=== PATIENT | female | born 1950 | race Caucasian/White ===

== ENCOUNTER → 2016-04-04 | Outpatient (CLI) | payer BC ==
[~2016-04-04] MED LIST: ALLEGRA PO; ASPEC325 PO; BNC40 PO; CARV3.12 PO; CLB/200 PO; DILT-115 PO; FRS/40 PO; GLC/500 PO; GLUCOSAMINE CHOND PO; GLUCTAB7 PO; KRIL1CAP3 PO; LOSA1TAB38 PO; MAGN400T6 PO; MULT-506 PO; NRN600 PO; PANT1TAB48 PO; POTA1080 PO; PRLSR20 PO; PROM25TA PO; RGL5 PO; ROSU5TAB PO; URC10 PO
[2016-04-04 12:49] LABS: BASO % 0.3 %; BASO ABS # 0.02 K/uL (0-0.2); COMPLETE YES; EOS % 3.9 %; HEMATOCRIT 44.7 % (37-47); IG% 0.3 %; LYMPH % 28.9 %; MEAN CELL VOLUME 91.6 fL (80-100); MEAN CORPUSCULAR HEMOGLOBIN 31.1 pg (25-34); MEAN PLATELET VOLUME 10.8 fL (7.4-10.4); MONO % 5.5 %; NEUT % 61.1 %; PLATELET COUNT 224 K/uL (130-400); RED BLOOD COUNT 4.88 M/uL (4.2-5.4); WHITE BLOOD COUNT 6.23 K/uL (4.8-10.8)
[2016-04-04 12:51] LABS: ESTIMATED AVERAGE GLUCOSE 131 mg/dl; HA1C FLAG Normal (Normal)
[2016-04-04 12:55] LABS: URINE APPEARANCE CLEAR (CLEAR); URINE BILIRUBIN NEG (NEG); URINE COLOR YELLOW; URINE NITRITE NEG (NEG); URINE PH 6.5 (4.5-7.5); UROBILINOGEN NEG (NEG); ZZUR CULT IF INDIC CLEAN CATCH YES
[2016-04-04 12:58] LABS: MANUAL MICROSCOPIC REQUIRED? NO; REVIEW REQ? NO
[2016-04-04 13:01] LABS: BLOOD UREA NITROGEN 21 mg/dl (7-18); BUN/CREATININE RATIO 20.6 (10-20); CALCIUM 9.5 mg/dl (8.5-10.1); CARBON DIOXIDE 27 mmol/L (21-32); CHLORIDE 104 mmol/L (98-107); CHOLESTEROL 180 mg/dl (0-200); GLUCOSE 149 mg/dl (70-99); POTASSIUM 4.4 mmol/L (3.5-5.1); SODIUM 141 mmol/L (136-145)
[2016-04-04 13:13] LABS: ALB/GLOB RATIO 1.2 (0.9-2); ALKALINE PHOSPHATASE 108 U/L (45-117); ALT/SGPT 43 U/L (12-78); AST/SGOT 17 U/L (15-37); CHOLESTEROL/HDL RATIO 3.5; HDL CHOLESTEROL 51 mg/dl; LDL CHOLESTEROL CALCULATED 96 mg/dl; TRIGLYCERIDES 165 mg/dl (0-150); VERY LOW DENSITY LIPOPROT CALC 33 mg/dl
== END | disposition home or self-care (01) ==
LOC: C.LABBFT 10:03
PROVIDERS: ATTEND Internal Medicine
DX: Z11.59 Encounter for screening for other viral diseases (principal); E11.8 Type 2 diabetes mellitus with unspecified complications; M81.0 Age-related osteoporosis without current pathological fracture; E66.01 Morbid (severe) obesity due to excess calories

== ENCOUNTER → 2016-07-12 | Outpatient (CLI) | payer BC ==
--- NOTE | 2016-07-12 15:11 | MAMMOGRAPHY REPORT ---
BILATERAL DIGITAL SCREENING MAMMOGRAM WITH CAD: 07/12/2016 CLINICAL HISTORY: Routine screening. Patient has no complaints. TECHNIQUE: Current study was also evaluated with a Computer Aided Detection (CAD) system. Bilatera l CC and MLO views were obtained. COMPARISON: Comparison is made to exams dated: 07/08/2015 mammogram, 06/25/2014 mammogram, 06/24/2013 ma mmogram, 06/18/2012 mammogram, 06/14/2011 mammogram, and 05/31/2010 mammogram - [facility] enter. BREAST COMPOSITION: The tissue of both breasts is almost entirely fatty. FINDINGS: No suspicious masses, calcifications, or areas of architectural distortion are noted in e ither breast. There has been no significant interval change compared to prior exams. IMPRESSION: ACR BI-RADS CATEGORY 1: NEGATIVE There is no mammographic evidence of malignancy. A 1 year screening mammogram is recommended. The p atient will receive written notification of the results. Approximately 10% of breast cancers are not detected with mammography. A negative mammographic repor t should not delay biopsy if a clinically suggestive mass is present. Alison Hammond M.D. ah/:07/12/2016 15:06:18 Ell Teacher: Camille SHAFFER(Valdemar)(Ruel), [facility] letter sent: Normal 1/2 BI-RADS Code: ACR BI-RADS Category 1: Negative
== END | disposition home or self-care (01) ==
LOC: C.MAMM 14:32
PROVIDERS: ATTEND Obstetrics & Gynecology
DX: Z12.31 Encounter for screening mammogram for malignant neoplasm of breast (principal)

== ENCOUNTER → 2016-11-07 | Day surgery (SDC) | payer BC ==
[2016-11-06 11:25] VITALS: Ht 165.1 cm; Wt 129.6 kg
[~2016-11-07] VITALS: Ht 165.1 cm; Wt 129.6 kg
[~2016-11-07] MED LIST changes: -ALLEGRA PO; -BNC40 PO; -GLUCOSAMINE CHOND PO; +LIDOCAINE HCL 2% 2 ML VIAL (20MG/ML) ONE; -MAGN400T6 PO; -POTA1080 PO; -PRLSR20 PO; -PROM25TA PO; +PROPOFOL IV EMULSION 10 MG/ML 20 ML VIAL IV ONE; -RGL5 PO; +SODIUM CHLORIDE 0.9% 500ML 500 ML IV ONE
--- NOTE | 2016-11-07 11:19 | Endo History and Physical ---
History & Physical Date of Service: Nov 07, 2016. Chief Complaint: Colon screening Referring Physician: Mateo Saini History of Present Illness Screening colonoscopy, average risk Past Surgical History Hx Cardiac Surgery: No Hx Internal Defibrillator: No Hx Pacemaker: No Hx Abdominal Surgery: Yes (SHEMAR) Hx of Implantable Prosthesis: No Hx Post-Op Nausea and Vomiting: No Hx Cancer Surgery: No Hx Thoracic Surgery: No Hx Orthopedic: No Hx Urinary Tract Surgery: Yes (URETER STENTS) Family History None Social History Smoking Status: Never Smoker Hx Substance Use: No Hx Alcohol Use: No Allergies Coded Allergies: Fluconazole (Verified Allergy, Mild, HIVES, 11/06/16) Hydrochlorothiazide (Verified Allergy, Unknown, DYAZIDE-RASH, 11/06/16) Replaces MAXZIDE-25 Nifedipine (Verified Allergy, Unknown, RASH, 11/06/16) Nitrofurantoin (Verified Allergy, Unknown, RASH, 11/06/16) Olmesartan (Verified Allergy, Unknown, GI UPSET, WEIGHT LOSS, 11/06/16) Sulfa Drugs (Verified Allergy, Unknown, RASH, 11/06/16) Triamterene (Verified Allergy, Unknown, DYAZIDE-RASH, 11/06/16) Replaces MAXZIDE-25 Penicillins (Verified Adverse Reaction, Mild, TOLERATES AMOXICILLIN/ AMPICILLIN, 11/06/16) REPORTED CHILDHOOD ALLERGY Vancomycin (Verified Adverse Reaction, Unknown, RASH--WAS TOLD IT WAS INFUSED TOO FAST, 11/06/16) Current Medications Reported Home Medications Medications Dose Route/Sig Max Daily Dose Days Date Category Glucosamine Chondroitin (Bjvfvyxleyg-Jjzbzxlohwy-Pjb C-) 1 Tab Tab 1 Tab PO BID 11/06/16 Reported Krill Oil 1 Cap Cap 1 Cap PO QAM 11/06/16 Reported CeleBREX (Celecoxib) 200 Mg Cap 200 Mg PO BID 11/06/16 Reported Gabapentin 600 Mg Tab 1 Tab PO TID 11/06/16 Reported Potassium Citrate 10 Meq Tab 1 Tab PO BID 11/06/16 Reported Cozaar (Losartan Potassium) 100 Mg Tab 100 Mg PO QAM 11/06/16 Reported Glucophage (Metformin Hcl) 500 Mg Tab 4 Tabs PO QAM 11/06/16 Reported Tiazac (Diltiazem HCl) 240 Mg Capcr 240 Mg PO BID 11/06/16 Reported Coreg (Carvedilol) 3.125 Mg Tab 1 Tab PO BID 11/06/16 Reported Lasix (Furosemide) 40 Mg Tab 2 Tabs PO QAM 11/06/16 Reported Protonix (Pantoprazole) 40 Mg Tab 40 Mg PO QAM 11/06/16 Reported Crestor (Rosuvastatin Calcium) 5 Mg Tab 5 Mg PO QPM 11/06/16 Reported Ecotrin Or Generic * (Aspirin) 325 Mg Ectab 325 Mg PO QAM 03/19/07 Reported Multivitamin (Multivitamins) Tab 1 Tab PO QAM 03/19/07 Reported Vital Signs Weight (Kilograms): 129.55 Height (Feet): 5 Height (Inches): 5 Date Time Temp Pulse Resp B/P (MAP) Pulse Ox O2 Delivery O2 Flow Rate FiO2 11/07/16 10:48 36.4 74 18 192/86 (121) 96 Room Air Physical Exam General Appearance: WD/WN, no apparent distress, + obese Respiratory/Chest: Auscultation: breath sounds normal, no wheezing Cardiovascular: Heart Auscultation: RRR, no murmurs Abdomen: Bowel Sounds: normal Inspection & Palpation: no tenderness, guarding & rebound Assessment and Plan Colonoscopy today.
--- NOTE | 2016-11-07 12:00 | GI REPORT ---
Procedure Date: 11/07/2016 11:14 AM Procedure: Colonoscopy Indications: Screening for colorectal malignant neoplasm Medicines: Propofol per Anesthesia Complications: No immediate complications. Estimated blood loss: None. Estimated Blood Loss: Estimated blood loss: none. Procedure: Pre-Anesthesia Assessment: - Prior to the procedure, a History and Physical was performed, and patient medications, allergies and sensitivities were reviewed. The patient's tolerance of previous anesthesia was reviewed. - ASA Grade Assessment: III - A patient with severe systemic disease. After I obtained informed consent, the scope was passed under direct vision. Throughout the procedure, the patient's blood pressure, pulse, and oxygen saturations were monitored continuously. The scope was introduced through the anus and advanced to the cecum, identified by appendiceal orifice and ileocecal valve. The colonoscopy was performed with ease. The patient tolerated the procedure well. The quality of the bowel preparation was excellent. The bowel preparation used was split dose MIralax. Findings: There was a small lipoma, in the ascending colon. Multiple diverticula were found in the left colon. Internal hemorrhoids were found during retroflexion. The hemorrhoids were small. Impression: - Small lipoma in the ascending colon. - Diverticulosis in the left colon. - Internal hemorrhoids. - No specimens collected. - The colon was otherwise normal to the cecum with retroflexed views of the colon and terminal ileum. Recommendation: - Repeat colonoscopy in 10 years for screening purposes. - Discharge patient to home (with escort). Rigoberto Flowers M.D. Rigoberto Flowers MD 11/07/2016 11:59:50 AM This report has been signed electronically. Note Initiated On: 11/07/2016 11:14 AM I attest to the content of the Intraoperative Record and orders documented therein, exceptions below
--- NOTE | 2016-11-07 12:01 | Discharge Instructions ---
Endoscopy Patient Instructions Date / Procedure(s) Performed Nov 07, 2016. Colonoscopy Allergy Information Coded Allergies: Fluconazole (Verified Allergy, Mild, HIVES, 11/06/16) Hydrochlorothiazide (Verified Allergy, Unknown, DYAZIDE-RASH, 11/06/16) Replaces MAXZIDE-25 Nifedipine (Verified Allergy, Unknown, RASH, 11/06/16) Nitrofurantoin (Verified Allergy, Unknown, RASH, 11/06/16) Olmesartan (Verified Allergy, Unknown, GI UPSET, WEIGHT LOSS, 11/06/16) Sulfa Drugs (Verified Allergy, Unknown, RASH, 11/06/16) Triamterene (Verified Allergy, Unknown, DYAZIDE-RASH, 11/06/16) Replaces MAXZIDE-25 Penicillins (Verified Adverse Reaction, Mild, TOLERATES AMOXICILLIN/ AMPICILLIN, 11/06/16) REPORTED CHILDHOOD ALLERGY Vancomycin (Verified Adverse Reaction, Unknown, RASH--WAS TOLD IT WAS INFUSED TOO FAST, 11/06/16) Discharge Date / Findings Nov 07, 2016. Diverticulosis, internal hemorrhoids Medication Instructions Stopped Medication(s): Patient was told to not take her metformin and lasix. Restart Stopped Medication(s): Restart all medications today Citrucel or Metamucil daily. Provider Instructions Activity Restrictions - No exercising or heavy lifting for 24 hours. - Do not drink alcohol the day of the procedure. - Do not drive a car or operate machinery until the day after the procedure. - Do not make any important decisions or sign important papers in 24 hours after the procedure. Following Day: - Return to full activity which may include returning to work/school. Diet Start your diet with liquids and light foods (jello, soup, juice, toast). Then eat your usual diet if not nauseated. Treatment For Common After Affects For mild abdominal pain, bloating, or excessive gas: - Rest - Eat lightly - Lie on right side Follow-Up Information Follow-up with Mateo Saini as scheduled Anesthesia Information What You Should Know You have had a procedure that required some medicine to reduce anxiety and discomfort. This treatment is called moderate sedation. After receiving the treatment, you may be sleepy, but you will be able to breathe on your own. The effects of the treatment may last for several hours. Follow these instructions along with Activity/Diet recommendations noted above: * Do NOT do anything where dizziness or clumsiness would be dangerous. * Rest quietly at home today, then you can be up and about tomorrow. * Have a responsible person stay with you the rest of today. * You may have had an I.V. today. If so, you may take the dressing off later today. Recommendations Call your doctor if: * Trouble breathing * Continuous vomiting for more than 24 hours * Temperature above 101 degrees * Severe abdominal pain or bloating * Pain not relieved by pain medicine ordered * There is increased drainage or redness from any incision * A large amount of rectal bleeding greater than 2-3 tablespoons. (If you had a polyp/s removed or have hemorrhoids, a small amount of blood - from the rectum is to be expected.) * You have any unanswered questions or concerns. IN THE EVENT OF A SERIOUS EMERGENCY, GO TO THE NEAREST EMERGENCY ROOM Your discharge instructions were prepared by provider Rigoberto Flowers. Patient Instructions Signature Page Glenis Wilson Patient (or Guardian) Signature/Date: I have read and understand the instructions given to me by my caregivers. Caregiver/RN/Doctor Signature/Date: The above-named patient and/or guardian has received patient instructions on this date. + Original Patient Signature Page (only) stays with chart. Please make copy for patient.
[2016-11-07 12:28] VITALS: BP 145/98; PULSE 64; O2SAT 95
--- NOTE | 2016-11-07 12:32 | Anesthesiology Progress Note ---
Anesthesia Post Op Note Date & Time Nov 07, 2016 at 12:32 Vital Signs Pain Intensity: 0 Vital Signs Past 12 Hours Date Time Temp Pulse Resp B/P (MAP) Pulse Ox O2 Delivery O2 Flow Rate FiO2 11/07/16 12:16 67 20 139/93 (108) 99 Room Air 11/07/16 12:04 68 20 120/88 (99) 97 Room Air 11/07/16 10:48 36.4 74 18 192/86 (121) 96 Room Air Notes Mental Status: alert / awake / arousable, participated in evaluation Pt Amnestic to Procedure: Yes Nausea / Vomiting: adequately controlled Pain: adequately controlled Airway Patency, RR, SpO2: stable & adequate BP & HR: stable & adequate Hydration State: stable & adequate Anesthetic Complications: no major complications apparent
== END | disposition home or self-care (01) ==
LOC: C.GI 10:19
PROVIDERS: ATTEND Internal Medicine Gastroenterology
DX: Z12.11 Encounter for screening for malignant neoplasm of colon (principal); D17.5 Benign lipomatous neoplasm of intra-abdominal organs; K57.30 Diverticulosis of large intestine without perforation or abscess without bleeding; K64.8 Other hemorrhoids; Z90.49 Acquired absence of other specified parts of digestive tract; Z79.82 Long term (current) use of aspirin

== ENCOUNTER → 2017-04-04 | Outpatient (CLI) | payer BC ==
[~2017-04-04] MED LIST changes: -LIDOCAINE HCL 2% 2 ML VIAL (20MG/ML) ONE; +PANT1TAB3 PO; -PANT1TAB48 PO; -PROPOFOL IV EMULSION 10 MG/ML 20 ML VIAL IV ONE; -SODIUM CHLORIDE 0.9% 500ML 500 ML IV ONE
[2017-04-04 17:59] LABS: BASO % 0.3 %; BASO ABS # 0.02 K/uL (0-0.2); EOS % 3.1 %; EOS ABS # 0.25 K/uL (0-0.5); HEMATOCRIT 45.1 % (37-47); HEMOGLOBIN 14.9 g/dL (12.0-16.0); IG# 0.02 K/uL (0.00-0.02); LYMPH ABS # 1.99 K/uL (1.2-3.4); MEAN CELL VOLUME 90.2 fL (80-100); MEAN CORPUSCULAR HEMOGLOBIN 29.8 pg (25-34); MEAN PLATELET VOLUME 10.9 fL (7.4-10.4); MONO % 5.9 %; MONO ABS # 0.47 K/uL (0.11-0.59); NEUT % 65.4 %; PLATELET COUNT 240 K/uL (130-400); WHITE BLOOD COUNT 7.95 K/uL (4.8-10.8)
[2017-04-04 18:10] LABS: CREATININE RANDOM URINE 38.1 mg/dl
[2017-04-04 18:17] LABS: ALBUMIN 4.3 gm/dl (3.4-5.0); ALT/SGPT 39 U/L (12-78); AST/SGOT 19 U/L (15-37); BLOOD UREA NITROGEN 17 mg/dl (7-18); CALCIUM 9.7 mg/dl (8.5-10.1); CARBON DIOXIDE 28 mmol/L (21-32); CREATININE 0.97 mg/dl (0.60-1.20); GLUCOSE 131 mg/dl (70-99); POTASSIUM 3.8 mmol/L (3.5-5.1); SODIUM 135 mmol/L (136-145)
[2017-04-04 18:20] LABS: ALKALINE PHOSPHATASE 114 U/L (45-117); CHOLESTEROL 106 mg/dl (0-200); LDL CHOLESTEROL CALCULATED 17 mg/dl
[2017-04-05 06:30] LABS: HEMOGLOBIN A1C 6.3 % (4.5-5.6)
== END ==
LOC: C.LABBFT 14:26
PROVIDERS: ATTEND Internal Medicine
DX: E11.8 Type 2 diabetes mellitus with unspecified complications (principal); E78.5 Hyperlipidemia, unspecified; M85.80 Other specified disorders of bone density and structure, unspecified site

== ENCOUNTER 2017-08-26 14:39 | Observation (INO) | payer BC ==
[~2017-08-26] VITALS: Ht 162.6 cm; Wt 134.1 kg
[2017-08-26] MEDS ORDERED: ASPI-113 PO (14:47)
[2017-08-26] MEDS ORDERED: CELE100C PO (15:35)
[2017-08-26 15:50] LABS: BASO % 0.5 %; BASO ABS # 0.03 K/uL (0-0.2); EOS % 3.4 %; EOS ABS # 0.22 K/uL (0-0.5); IG# 0.01 K/uL (0.00-0.02); LYMPH % 28.7 %; LYMPH ABS # 1.85 K/uL (1.2-3.4); MEAN CELL VOLUME 90.7 fL (80-100); MEAN CORPUSCULAR HEMOGLOBIN 30.2 pg (25-34); MEAN CORPUSCULAR HGB CONC 33.3 g/dl (32-36); MONO ABS # 0.45 K/uL (0.11-0.59); NEUT % 60.2 %; NEUT ABS # 3.89 K/uL (1.4-6.5); PLATELET COUNT 198 K/uL (130-400); RED CELL DISTRIBUTION WIDTH CV 14.1 % (11.5-14.5); RED CELL DISTRIBUTION WIDTH SD 46.4 fL (36.4-46.3); WHITE BLOOD COUNT 6.45 K/uL (4.8-10.8)
[2017-08-26 16:06] LABS: CALCIUM 8.9 mg/dl (8.5-10.1); CREATININE 0.87 mg/dl (0.60-1.20)
--- NOTE | 2017-08-26 16:12 | DIAGNOSTIC IMAGING REPORT ---
CHEST ONE VIEW PORTABLE CLINICAL HISTORY: Atypical chest pain COMPARISON STUDY: 03/19/2007 FINDINGS: There are low lung volumes. The heart is at the upper limits of normal in size. There is no failure. There is no focal pulmonary consolidation. There are no pleural effusions. There is borderline elevation right hemidiaphragm.[ IMPRESSION: No active disease in the chest. Electronically signed by: Martinez Lezama M.D. 08/26/2017 4:11 PM Dictated Date/Time: 08/26/2017 4:10 PM
[2017-08-26] MEDS ORDERED: NITROGLYCERIN 2% OINTMENT 30GM TUBE EXT ONE (16:30)
[2017-08-26] MEDS ORDERED: POLYETHYLENE (MIRALAX) 17 GM PACK PO PRN (17:15)
[2017-08-26] MEDS ORDERED: ALUMINUM/MAGNESIUM/SIMETH (MAALOX MAX) 30 ML UDC PO PRN (17:15)
[2017-08-26] MEDS ORDERED: NITROGLYCERIN 0.4 MG SL PER TAB CHARGE SL PRN (17:15)
[2017-08-26] MEDS ORDERED: MAGNESIUM HYDROXIDE SUSP 30 ML UDC PO PRN (17:15)
[2017-08-26] MEDS ORDERED: ONDANSETRON INJ 2 MG/ML 2 ML VIAL IV PRN (17:15)
[2017-08-26] MEDS ORDERED: ACETAMINOPHEN 325 MG TAB PO PRN (17:15)
[2017-08-26] MEDS ORDERED: OPTIRAY 320 IV PRN (17:30)
[2017-08-26] MEDS ORDERED: IV FLUIDS COMPLETED PRN (17:30)
[2017-08-26 17:35] VITALS: O2SAT 96; Ht 162.6 cm; Wt 134.1 kg
--- NOTE | 2017-08-26 17:35 | History and Physical ---
History & Physical Date of Service Aug 26, 2017. History & Physical chest pain rule out ACS, and PE, [id number]
[2017-08-26] MEDS ORDERED: GLUCOSE 10 TABS/TUBE PO PRN (18:15)
[2017-08-26] MEDS ORDERED: GLUCOSE 40% GEL 15 GM TUBE PO PRN (18:15)
[2017-08-26] MEDS ORDERED: DEXTROSE 50% 50 ML SYR IV PRN (18:15)
[2017-08-26] MEDS ORDERED: CARBOHYDRATES FOR HYPOGLYCEMIA PO PRN (18:15)
[2017-08-26] MEDS ORDERED: GLUCAGON FOR INJ 1 MG VIAL IM PRN (18:15)
[2017-08-26 18:33] VITALS: BP 164/97; PULSE 74; TEMP 37; O2SAT 96
[2017-08-26 18:33] LABS: CKMB < 1.0 ng/ml (0.5-3.6)
--- NOTE | 2017-08-26 18:35 | DIAGNOSTIC IMAGING REPORT ---
CT ANGIOGRAM OF THE CHEST CLINICAL HISTORY: Atypical chest pain. COMPARISON STUDY: February 2007 TECHNIQUE: Following the IV administration of 93 mL of Optiray-320, CT angiogram of the thorax was performed from the thoracic inlet to the lung bases utilizing the pulmonary embolus protocol. Images are reviewed in the axial, sagittal, and coronal planes. IV contrast was administered without complication. MIP imaging was performed. A dose lowering technique was utilized adhering to the principles of ALARA. CT DOSE: 1302.53 mGy.cm FINDINGS: No pathologically enlarged axillary mediastinal or hilar lymph nodes were visualized. The ascending thoracic aorta measures 35 mm. There were no pulmonary artery filling defects to indicate acute pulmonary embolism. No pleural effusions are visualized. There was no evidence of focal pulmonary consolidation. There are 2 solid left lower lobe pulmonary nodules, the largest of which measures 5 mm. These appear new. IMPRESSION: 1. No evidence of acute pulmonary embolism 2. No evidence of focal pulmonary consolidation 3. There are are 2 solid left lower lobe pulmonary nodules the largest of which is located on image #[id number]. This measures 5 mm. These were not visualized the prior 2007 study. 12 month follow-up is recommended. Electronically signed by: Martinez Lezama M.D. 08/26/2017 6:33 PM Dictated Date/Time: 08/26/2017 6:26 PM
--- NOTE | 2017-08-26 18:47 | HISTORY & PHYSICAL EXAMINATION ---
DATE OF ADMISSION: 08/26/2017 This is observation H and P, 35 minutes. CHIEF COMPLAINT: Chest pain. HISTORY OF PRESENT ILLNESS: Patient is a 66-year-old white female with a significant past medical history of anticardiolipin antibody positive, diabetic, hypertension, retroperitoneal fibrosis, remote history of right lower extremity DVT, was on Coumadin, coming into the hospital Emergency Room because of the above chief complaint. Patient reports of intermittent left anterior chest wall pain comes and goes from early 3 o'clock today. The pain was localized in the middle of the chest, radiation across to the chest wall. She described the pain as sharp sensations, lasting a couple of seconds, but returned frequently every 2 minutes or every 30 minutes. The onset of the chest pain is random but significantly comes and goes. She thought initially the chest pain was because of the heartburn. She took a few antacid which does not help. She may have some shortness of breath whenever she is up doing something. When in the Emergency Room, the chest pain was resolved. Denied diaphoresis. Denied palpitations or lower extremity swellings. Denied cough, sputum, hemoptysis. Denied nausea, vomiting, abdominal pain, diarrhea, or constipation. Denied dysuria, urgency and frequencies. Denied facial droop, slurry speeches or local weakness. Denied skin rashes. PAST MEDICAL HISTORY: Like I mentioned in the above include anticardiolipin antibody positive, diabetic, hypertension, retroperitoneal fibrosis and right lower extremity DVT, was on Coumadin. FAMILY HISTORY: Includes father has early onset of heart disease at 50s. Mother has cancer. SOCIAL HISTORY: Never smoked. Denied alcohol abuse disorder, denied illicit drug abuse. Patient lives with significant other. CURRENT MEDICATIONS: Include aspirin 325 mg p.o. daily, Coreg 1 tab p.o. b.i.d., celecoxib 100 mg p.o. b.i.d., Cardizem 240 mg p.o. b.i.d., furosemide 2 tab p.o. q.a.m., gabapentin 1 tab p.o. t.i.d., glucosamine 1 tab p.o. b.i.d., losartan 100 mg p.o. q.a.m., metformin 2 tab p.o. q.a.m., multiple vitamin 1 tab p.o. q.a.m., Protonix 40 mg p.o. q.a.m., potassium citrate 1 tab p.o. t.i.d., rosuvastatin 5 mg p.o. q.p.m. ALLERGIES: INCLUDE FLUCONAZOLE, HCTZ, NIFEDIPINE, NITROFURANTOIN, OLMESARTAN, SULFA DRUG, TRIAMTERENE. PHYSICAL EXAMINATION: VITAL SIGNS: Temperature 36.5, pulse 69, respiratory rate 19, blood pressure 175/93. GENERAL: Patient is a white female with morbid obesity. Awake, alert and oriented, pleasant, conversational, follows all commands. HEAD: Normocephalic. EYES: Pupils equal, round, responds to light. EARS: Normal. NOSE: Normal. NECK: Supple. Thyroid no enlargement. Trachea in midline. MUSCULOSKELETAL: She reported chest pain in the left chest wall, not producible when touching. HEART: Regular rhythm. S1, S2. LUNGS: Decreased breathing sounds. There were no wheezing, rhonchi or crackles. ABDOMEN: Obese, nontender. Bowel sound was positive. GENITOURINARY AND RECTAL: Deferred. Bilateral CVA was nontender. BILATERAL LOWER EXTREMITIES: Trace edema. Homans sign was negative. Calf was nontender. There was no clubbing, no cyanosis. NEUROLOGICAL EVALUATION: Cranial nerves II-XII was intact. There was no local deficit. Chest x-ray, no acute chest disease. LABORATORY STUDIES: WBC 6.4, hemoglobin 14, platelet 198. Sodium 140, potassium 4, BUN 17, creatinine 0.87. Blood glucose 118. EKG shows a first-degree AV block, right bundle-branch block, ST mild depression in V4 and V5. ASSESSMENT AND PLAN: A 66-year-old white female with the conditions see below. 1. Chest pain, need to rule out acute chest syndrome or pulmonary embolism. 2. Accelerated hypertension. 3. History of diabetic. 4. Morbid obesity. 5. History of cardiolipin antibody positive. 6. History of deep vein thrombosis, was on Coumadin. 7. History of retroperitoneal fibrosis. Because of the above medical conditions with chest pain which sounds atypical; however, patient has several risk factors including morbid obesity, BMI 51, hypertension, diabetic and family history of early onset heart disease and myocardial infarction. Therefore, need to rule out acute coronary syndrome. We will keep in the tele, check cardiac enzyme troponin 2 sets more. Because of morbid obesity, I will order nuclear stress test, we will keep diet for now n.p.o. midnight. 9. Because of morbid obesity, I will check D-dimer and also check chest CT to rule out pulmonary embolism. We will give insulin sliding scale. Check HbA1c, fasting lipid panel as well, and adjust medications. 10. Gastrointestinal prophylaxis is on Protonix. Deep venous thrombosis prophylaxis is on heparin, discussed with patient and family, answered all the questions. Patient is full code. MTDD
[2017-08-26 19:28] VITALS: BP 142/83; PULSE 69; O2SAT 95
[2017-08-26] MEDS: GABAPENTIN 600 MG TAB PO SCH (19:58)
[2017-08-26] MEDS: POTASSIUM CITRATE 10 MEQ TAB PO SCH (19:59)
[2017-08-26] MEDS: CeleBREX 100 MG CAP PO SCH (19:59)
[2017-08-26] MEDS: CARVEDILOL 3.125 MG TAB PO SCH (20:00)
[2017-08-26] MEDS: DILTIAZEM HCL 120 MG EXT REL CAP PO SCH (20:00)
[2017-08-26] MEDS: INSULIN ASPART 100 UNITS/ML 3 ML PEN SC SCH (20:01)
--- NOTE | 2017-08-26 20:11 | EMERGENCY ROOM VISIT NOTE ---
History Report prepared by Live: Maycol Moran Under the Supervision of: Dr. Adam Cooper M.D. First contact with patient: 15:11 Chief Complaint: CHEST PAIN Stated Complaint: CHEST PAIN History of Present Illness The patient is a 66 year old female who presents to the Emergency Room with complaints of intermittent chest pain that began at 0300. She notes the pain is in the middle of her chest and radiates across her chest. She describes the pain as a sharp sensation. The patient states that the pain lasts for a couple of seconds. She reports the pain can return every 2 minutes to every 30 minutes. The patient reports the onset of the pain has been random. She reports that she originally thought her pain was due to heart burn, which she took multiple antacids for. The patient states the antacids did not relieve her pain. She also notes that she has been short of breath whenever she is up doing something. She reports her chest pain is currently resolved. The patient denies any diaphoresis and abdominal pain. She denies any prolonged trips or hormone therapy. 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 She states that she has a history of diabetes and hypertension. She denies a history of atrial fibrillation. The patient notes she has lower extremity swelling, which is chronic. She reports she does have a family history of myocardial infarctions. Source of History: patient Onset: 0300 Position: chest Quality: sharp Timing: intermittent Associated Symptoms: + SOB, No diaphoresis, No abdominal pain Review of Systems See HPI for pertinent positives & negatives. A total of 10 systems reviewed and were otherwise negative. Past Medical & Surgical Medical Problems: (1) Anticardiolipin antibody positive (2) chest pain rule out (3) Chest pain, rule out acute myocardial infarction (4) Diabetes (5) HTN (hypertension) (6) Retroperitoneal fibrosis Family History Heart disease Social History Smoking Status: Never Smoker Alcohol Use: none Marital Status: Housing Status: lives with significant other Current/Historical Medications Scheduled Aspirin Enteric Coated (Ecotrin Or Generic), 325 MG PO DAILY Carvedilol (Coreg), 1 TAB PO BID Celecoxib (Celebrex), 100 MG PO BID Diltiazem Hcl Ext Rel (Tiazac), 240 MG PO BID Furosemide (Lasix), 2 TABS PO QAM Gabapentin (Gabapentin), 1 TAB PO TID Adodirunmwl-Pqzxovjwbae-Fzg C- (Glucosamine Chondroitin), 1 TAB PO BID Krill Oil (Krill Oil), 1 CAP PO QAM Losartan Potassium (Cozaar), 100 MG PO QAM Metformin Hcl (Glucophage), 2 TABS PO QAM Multivitamin (Multivitamin), 1 TAB PO QAM Pantoprazole (Protonix), 40 MG PO QAM Potassium Citrate (Potassium Citrate), 1 TAB PO TID Rosuvastatin Calcium (Crestor), 5 MG PO QPM Allergies Coded Allergies: Fluconazole (Verified Allergy, Mild, HIVES, 08/26/17) Hydrochlorothiazide (Verified Allergy, Unknown, DYAZIDE-RASH, 08/26/17) Replaces MAXZIDE-25 Nifedipine (Verified Allergy, Unknown, RASH, 08/26/17) Nitrofurantoin (Verified Allergy, Unknown, RASH, 08/26/17) Olmesartan (Verified Allergy, Unknown, GI UPSET, WEIGHT LOSS, 08/26/17) Sulfa Drugs (Verified Allergy, Unknown, RASH, 08/26/17) Triamterene (Verified Allergy, Unknown, DYAZIDE-RASH, 08/26/17) Replaces MAXZIDE-25 Physical Exam Vital Signs Date Time Temp Pulse Resp B/P (MAP) Pulse Ox O2 Delivery O2 Flow Rate FiO2 08/26/17 16:37 63 19 115/76 96 Room Air 08/26/17 15:41 96 Room Air 08/26/17 15:00 69 08/26/17 14:44 36.5 69 19 175/93 96 Room Air Physical Exam Constitutional: Vital signs reviewed. Eyes: Pupils are equal round reactive to light. Conjunctiva are noninjected. ENT: Pharynx is clear without erythema or exudate. Mucous membranes are moist. Neck supple without meningeal signs. Respiratory: Clear to auscultation bilaterally. Breath sounds are equal bilaterally. Cardiovascular: Regular rate and rhythm. No rubs or gallops. GI: Soft, nondistended and nontender. Bowel sounds are present. Musculoskeletal: No peripheral edema. No lower extremity tenderness. Integumentary: No cyanosis. Neurological: The patient is awake and alert. No focal deficits. Psychiatric: Normal affect. Medical Decision & Procedures ER Provider Diagnostic Interpretation: X-ray results as stated below per interpretation by me and the radiologist: CHEST ONE VIEW PORTABLE CLINICAL HISTORY: Atypical chest pain COMPARISON STUDY: 03/19/2007 FINDINGS: There are low lung volumes. The heart is at the upper limits of normal in size. There is no failure. There is no focal pulmonary consolidation. There are no pleural effusions. There is borderline elevation right hemidiaphragm.[ IMPRESSION: No active disease in the chest. Electronically signed by: Martinez Lezama M.D. 08/26/2017 4:11 PM Dictated Date/Time: 08/26/2017 4:10 PM Laboratory Results 08/26/17 15:35 Red Blood Count 4.63, Mean Corpuscular Volume 90.7, Mean Corpuscular Hemoglobin 30.2, Mean Corpuscular Hemoglobin Concent 33.3, Mean Platelet Volume 10.0, Neutrophils (%) (Auto) 60.2, Lymphocytes (%) (Auto) 28.7, Monocytes (%) (Auto) 7.0, Eosinophils (%) (Auto) 3.4, Basophils (%) (Auto) 0.5, Neutrophils # (Auto) 3.89, Lymphocytes # (Auto) 1.85, Monocytes # (Auto) 0.45, Eosinophils # (Auto) 0.22, Basophils # (Auto) 0.03 08/26/17 15:35 Test 08/26/17 15:35 08/26/17 15:42 08/26/17 17:21 White Blood Count 6.45 K/uL (4.8-10.8) Red Blood Count 4.63 M/uL (4.2-5.4) Hemoglobin 14.0 g/dL (12.0-16.0) Hematocrit 42.0 % (37-47) Mean Corpuscular Volume 90.7 fL (80-100) Mean Corpuscular Hemoglobin 30.2 pg (25-34) Mean Corpuscular Hemoglobin Concent 33.3 g/dl (32-36) Platelet Count 198 K/uL (130-400) Mean Platelet Volume 10.0 fL (7.4-10.4) Neutrophils (%) (Auto) 60.2 % Lymphocytes (%) (Auto) 28.7 % Monocytes (%) (Auto) 7.0 % Eosinophils (%) (Auto) 3.4 % Basophils (%) (Auto) 0.5 % Neutrophils # (Auto) 3.89 K/uL (1.4-6.5) Lymphocytes # (Auto) 1.85 K/uL (1.2-3.4) Monocytes # (Auto) 0.45 K/uL (0.11-0.59) Eosinophils # (Auto) 0.22 K/uL (0-0.5) Basophils # (Auto) 0.03 K/uL (0-0.2) RDW Standard Deviation 46.4 fL (36.4-46.3) RDW Coefficient of Variation 14.1 % (11.5-14.5) Immature Granulocyte % (Auto) 0.2 % Immature Granulocyte # (Auto) 0.01 K/uL (0.00-0.02) Prothrombin Time 10.7 SECONDS (9.0-12.0) Prothromb Time International Ratio 1.0 (0.9-1.1) Activated Partial Thromboplast Time 27.0 SECONDS (21.0-31.0) Partial Thromboplastin Ratio 1.0 D-Dimer 310 ug/L FEU (0-500) Anion Gap 11.0 mmol/L (3-11) Est Creatinine Clear Calc Drug Dose 87.3 ml/min Estimated GFR () 80.5 Estimated GFR (Non- 69.4 BUN/Creatinine Ratio 20.0 (10-20) Calcium Level 8.9 mg/dl (8.5-10.1) Bedside Troponin I < 0.030 ng/ml (0-0.045) Creatine Kinase MB Ratio (0-3.0) Laboratory results as reviewed by me. Medications Administered Medications (Trade) Dose Ordered Sig/Willie Route Start Time Stop Time Status Last Admin Dose Admin Nitroglycerin (Nitroglycerin 2% Oint) 0.5 inch NOW ONCE EXT 08/26/17 16:30 08/26/17 16:31 DC 08/26/17 16:33 0.5 INCH ECG Per My Interpretation Indication: chest pain Rate (beats per minute): 70 Rhythm: sinus rhythm Findings: 1st degree AV block, RBBB, ST depression (Lead II and V4 and V5) Comparison ECG Date: 05/01/11 Change: The patient had RBBB and nonspecific ST changes ED Course 1520: The patient was evaluated in room A11B. A complete history and physical exam was performed. 1618: I reevaluated the patient and she is still experiencing occasional chest pains. I updated her on her results. I discussed her treatment plan, which she agrees to. The patient will be further evaluated. 162: Paged [facility] Hospitalist. 163: Ordered Nitroglycerin 0.5 inch EXT. 1633: I discussed the patient's case with Dr. Crowe [facility] Hospitalist. He understands the patient's condition and agrees to accept the patient. The patient will be evaluated for further management and care. Medical Decision This is a 66-year-old female presents with chest pain. Differential diagnosis includes pleurisy, costochondritis, unstable angina, CA, GERD. I did perform a limited focused review of portions of the patient's old chart on the electronic medical record. The patient was here June 09 for hives. She was placed on Prednisone. I did evaluate the patient as noted above. The patient is presenting with fairly atypical chest pain but she does have multiple risk factors for heart disease. IV access was established. The patient was placed on a continuous cardiac rn. I did order and personally review the patient's 12-lead EKG and chest x-ray as described above. Her twelve-lead EKG demonstrates some nonspecific ST depressions as noted above. I did treat patient with nitroglycerin paste. She did have aspirin prior to arrival. I did order and review the patient's blood work as noted in the electronic medical record. Her troponin is negative. I did discuss the test results with the patient. I did recommend hospitalization for repeat cardiac enzymes and further evaluation given her multiple risk factors and abnormal EKG. I did discuss case with the hospitalist and supportive employment case manager. Medication Reconcilliation Current Medication List: was personally reviewed by me Blood Pressure Screening Patient's blood pressure: Elevated blood pressure Blood pressure disposition: Referred to PCP Consults Time Called: 1619 Consulting Physician: Dr. Crowe [facility] Hospitalist Returned Call: [phone] I discussed the patient's case with Dr. Crowe [facility] Hospitalist. He understands the patient's condition and agrees to accept the patient. The patient will be evaluated for further management and care. Impression Primary Impression: Precordial chest pain Scribe Attestation The scribe's documentation has been prepared under my direct and personally reviewed by me in its entirety. I confirm that the note above accurately reflects all work, treatment, procedures, and medical decision making performed by me. Departure Information Dispostion Being Evaluated By Hospitalist Referrals Saini, Christopher E.,M.D. (PCP) Patient Instructions [facility]
[2017-08-26] MEDS ORDERED: ZOLPIDEM TARTRATE 5 MG TAB PO PRN (20:45)
[2017-08-26] MEDS ORDERED: ROSUVASTATIN CALCIUM 10 MG TAB PO SCH (21:00)
[2017-08-26] MEDS: HEPARIN SOD 5000 UNIT/0.5 ML CARP SQ SCH (21:36)
[2017-08-26 23:30] VITALS: BP 162/78; PULSE 79; TEMP 36.7; O2SAT 90
[2017-08-27 00:01] VITALS: O2SAT 89
[2017-08-27] MEDS ORDERED: GABAPENTIN 600 MG TAB PO ONE (02:00)
[2017-08-27 03:30] VITALS: BP 143/85; PULSE 81; TEMP 36.6; O2SAT 89
[2017-08-27] MEDS: HEPARIN SOD 5000 UNIT/0.5 ML CARP SQ SCH (06:00)
[2017-08-27 06:05] LABS: BLOOD UREA NITROGEN 15 mg/dl (7-18); CALCIUM 8.7 mg/dl (8.5-10.1); CARBON DIOXIDE 28 mmol/L (21-32); CHOLESTEROL 96 mg/dl (0-200); CREATININE 0.89 mg/dl (0.60-1.20); GLUCOSE 126 mg/dl (70-99); LDL CHOLESTEROL CALCULATED 13 mg/dl; PHOSPHORUS 2.8 mg/dl (2.5-4.9); POTASSIUM 3.5 mmol/L (3.5-5.1); SODIUM 139 mmol/L (136-145)
[2017-08-27 06:29] LABS: HEMOGLOBIN A1C 6.7 % (4.5-5.6)
[2017-08-27] MEDS: INSULIN ASPART 100 UNITS/ML 3 ML PEN SC SCH (07:00)
[2017-08-27 07:24] VITALS: BP 145/75; PULSE 80; TEMP 36.9; O2SAT 89
[2017-08-27] MEDS: POTASSIUM CITRATE 10 MEQ TAB PO SCH (07:47)
[2017-08-27] MEDS ORDERED: FUROSEMIDE 80 MG TAB PO SCH (09:00)
[2017-08-27] MEDS ORDERED: MULTIVITAMIN TAB PO SCH (09:00)
[2017-08-27] MEDS ORDERED: ASPIRIN 325 MG ECTAB PO SCH (09:00)
[2017-08-27] MEDS ORDERED: PANTOprazole SOD 40 MG TAB PO SCH (09:00)
[2017-08-27] MEDS ORDERED: LOSARTAN POTASSIUM 50 MG TAB PO SCH (09:00)
[2017-08-27] MEDS: GABAPENTIN 600 MG TAB PO SCH (09:25)
[2017-08-27] MEDS: CARVEDILOL 3.125 MG TAB PO SCH (09:26)
[2017-08-27] MEDS: DILTIAZEM HCL 120 MG EXT REL CAP PO SCH (09:26)
[2017-08-27] MEDS: CeleBREX 100 MG CAP PO SCH (09:28)
--- NOTE | 2017-08-27 10:37 | Discharge Instructions ---
Discharge Instructions Date of Service Aug 27, 2017. Admission Reason for Admission: Chest Pain Rule Out Acute Myocardial Infarction Discharge Discharge Diagnosis / Problem: Atypical chest pain Discharge Goals Goal(s): Decrease discomfort, Diagnostic testing (consider nuclear stress test) Activity Recommendations Activity Limitations: resume your previous activity . Instructions / Follow-Up Instructions / Follow-Up Medications: no changes Chest pain, atypical presentation no evidenced of heart attack, EKG did not show any ischemic changes and troponin (heart enzyme) was negative x 3 sets thus ruling out heart attack certainly you have risk factors for coronary disease and even though there is no evidence of heart attack, you could still have narrowing of coronary vessels recommend discussing a nuclear stress test with Dr. Saini, follow up with him in one week to discuss no evidence of pulmonary embolism (blood clot) on the CT of the chest could be musculoskeletal pain given sharp nature, comes and goes, you can try taking extra strength Tylenol for the pain if it returns doubt heart burn since the pain did not improve with antacid FOLLOW UP - Dr. Saini in one week, call for hospital follow up Current Hospital Diet Patient's current hospital diet: AHA Diet (Heart Healthy), Diabetes Type 2 Diet Discharge Diet Recommended Diet: AHA Diet (Heart Healthy), Diabetes Type 2 Diet Pending Studies Studies pending at discharge: no Laboratory Results Hemoglobin A1c Test 08/27/17 05:15 Range/Units Estimated Average Glucose 146 mg/dl Hemoglobin A1c 6.7 H 4.5-5.6 % Lipid Panel Test 08/27/17 05:15 Range/Units Triglycerides Level 225 H 0-150 mg/dl Cholesterol Level 96 0-200 mg/dl HDL Cholesterol 38 mg/dl Cholesterol/HDL Ratio 2.5 LDL Cholesterol, Calculated 13 mg/dl Medical Emergencies . Who to Call and When: Medical Emergencies: If at any time you feel your situation is an emergency, please call 911 immediately. . Non-Emergent Contact Non-Emergency issues call your: Primary Care Provider Call Non-Emergent contact if: your pain is worsening, you have any medication questions . . "Provider Documentation" section prepared by Marco Antonio Simeon . [place] Drug Monitoring Program Search Results: no issues identified
[2017-08-27 10:50] VITALS: BP 145/75; PULSE 80; TEMP 36.9; O2SAT 89
[2017-08-28] MEDS ORDERED: METFORMIN HCL 500 MG TAB PO SCH (09:00)
--- NOTE | 2017-08-28 09:04 | Discharge Summary ---
Discharge Summary Date of Service Aug 27, 2017. Discharge Summary Admission Date: Aug 26, 2017 at 17:21 Discharge Date: Aug 27, 2017 Discharge Disposition: Home Principal Diagnosis: Atypical chest pain Problems/Secondary Diagnoses: Obesity Diabetes Hypertension Immunizations: Have You Had Influenza Vaccine: Yes Influenza Vaccine Date: Dec 15, 2005 History of Tetanus Vaccine?: Yes History of Pneumococcal: No History of Hepatitis B Vaccine: No Procedures: none Consultations: none Medication Reconciliation Continued Medications: Aspirin Enteric Coated (Ecotrin Or Generic) 325 Mg Ectab 325 MG PO DAILY, TAB Carvedilol (Coreg) 3.125 Mg Tab 1 TAB PO BID Celecoxib (Celebrex) 100 Mg Cap 100 MG PO BID, CAP Diltiazem Hcl Ext Rel (Tiazac) 240 Mg Capcr 240 MG PO BID Furosemide (Lasix) 40 Mg Tab 2 TABS PO QAM Gabapentin (Gabapentin) 600 Mg Tab 1 TAB PO TID Jmfjhmkuxyo-Pnvdyojrcqg-Rmp C- (Glucosamine Chondroitin) 1 Tab Tab 1 TAB PO BID Krill Oil (Krill Oil) 1 Cap Cap 1 CAP PO QAM Losartan Potassium (Cozaar) 100 Mg Tab 100 MG PO QAM Metformin Hcl (Glucophage) 500 Mg Tab 2 TABS PO QAM Multivitamin (Multivitamin) Tab 1 TAB PO QAM Pantoprazole (Protonix) 40 Mg Tab 40 MG PO QAM Potassium Citrate (Potassium Citrate) 10 Meq Tab 1 TAB PO TID Rosuvastatin Calcium (Crestor) 5 Mg Tab 5 MG PO QPM Discharge Exam Patient without chest pain for 10 hours prior to discharge. The pain resolved spontaneously around 3am on 08/27 and never returned. Discussed that the troponin was negative x 3, CTA chest was negative for PE. Discussed that it was likely musculoskeletal. Encouraged her to consider getting a nuclear medicine stress test, but she wanted to talk with her PCP first. Review of Systems: Constitutional: No fever, No chills, No sweats, No weight loss, No weakness , No fatigue, No problem reported Eyes: No worsening of vision, No eye pain, No redness, No discharge, No diplopia, No problem reported ENT: No hearing loss, No unusual epistaxis, No nasal symptoms, No sore throat, No tinnitus, No dental problems, No trouble swallowing, No problem reported Respiratory: No cough, No sputum, No wheezing, No shortness of breath, No dyspnea on exertion, No dyspnea at rest, No hemoptysis, No problem reported Cardiovascular: + chest pain (prior to admission, sharp pain, lasted 30-60 seconds), No orthopnea, No PND, No edema, No claudication, No palpitations, No problem reported Abdomen: No pain, No nausea, No vomiting, No diarrhea, No constipation, No GI bleeding, No problem reported Musculoskeletal: + joint pain (chronic, low back, knees), No muscle pain, No swelling, No calf pain, No problem reported Genitourinary - Female: No dysuria, No urinary frequency, No urinary urgency , No urinary incontinence, No urinary retention, No hematuria Neurologic: No memory loss, No paralysis, No weakness, No numbness/tingling , No vertigo, No balance problems, No problem reported Psychiatric: No depression symptoms, No anhedonism, No anxiety, No insomnia , No substance abuse, No problem reported Endocrine: No fatigue, No excessive thirst, No excessive urination, No problem reported Hematologic / Lymphatic: No abnormal bleeding/bruising, No clotting problems , No swollen lymph nodes, No night sweats, No problem reported Integumentary: No rash, No itch, No new/changing skin lesions, No color change, No bleeding, No problem reported Physical Exam: General Appearance: no apparent distress, + obese Eyes: normal inspection, EOMI, sclerae normal ENT: normal ENT inspection, hearing grossly normal, pharynx normal Neck: supple, no adenopathy, no JVD, trachea midline Respiratory/Chest: chest non-tender, lungs clear, normal breath sounds, no respiratory distress, no accessory muscle use Cardiovascular: regular rate, rhythm, no edema, no gallop, no JVD, no murmur , normal peripheral pulses Abdomen / GI: normal bowel sounds, non tender, soft, no organomegaly Extremities: normal inspection, no calf tenderness, normal capillary refill , no pedal edema, normal range of motion, pelvis stable Neurologic/Psychiatric: varnish supervisor II-XII nml as tested, no motor/sensory deficits , alert, normal mood/affect, normal reflexes, oriented x 3 Skin: normal color, warm/dry, no rash Lymphatic: no adenopathy Hospital Course Chest pain, atypical presentation no evidence ACS, EKG did not show any ischemic changes and troponin was negative x 3 sets certainly she has risk factors for CAD with family history, obesity, hypertension, hyperlipidemia, DM type II recommended getting nuclear stress test while in the hospital, patient was weary, had heard of other people who had "bad experiences" with stress test encouraged her to talk with PCP about stress test no evidence of pulmonary embolism on CTA could be musculoskeletal pain given sharp nature, comes and goes, recommend trying Tylenol doubt heart burn since the pain did not improve with antacid DM type II, HTN: chronic issues, stable Total Time Spent: Greater than 30 minutes This includes examination of the patient, discharge planning, medication reconciliation, and communication with other providers. Discharge Instructions Please refer to the electronic Patient Visit Report (Discharge Instructions) for additional information. Follow-Up Dr. Saini in one week Additional Copies To Mateo Saini M.D.
== END 2017-08-27 12:34 | disposition home or self-care (01) ==
LOC: C.EDB 14:40 → C.2T 17:21 → ENRESERV 17:31
PROVIDERS: ADMIT Hospitalist; ATTEND Internal Medicine
DX: R07.89 Other chest pain (principal); E66.01 Morbid (severe) obesity due to excess calories; E11.9 Type 2 diabetes mellitus without complications; I10 Essential (primary) hypertension; Z79.82 Long term (current) use of aspirin; Z79.899 Other long term (current) drug therapy; Z86.718 Personal history of other venous thrombosis and embolism; Z88.2 Allergy status to sulfonamides; Z88.8 Allergy status to other drugs, medicaments and biological substances; Z68.43 Body mass index [BMI] 50.0-59.9, adult; Z82.49 Family history of ischemic heart disease and other diseases of the circulatory system

== ENCOUNTER 2021-06-26 13:52 | Inpatient (IN) ==
[2021-06-26] MEDS ORDERED: diphenhydrAMINE 50 MG/ML VIAL IV STA (14:07)
[2021-06-26] MEDS ORDERED: FAMOTIDINE 20MG IV PUSH 20 MG/5 ML SYR IV STA (14:07)
[2021-06-26] MEDS ORDERED: methylPREDNISolone 125 MG/2 ML VIAL IV STA (14:07)
--- NOTE | 2021-06-26 14:14 | Emergency Department Note ---
Impression & Plan Weakness, MAURICIO (acute kidney injury), Hives, Acute hyponatremia, Acute UTI, Medication reaction, Elevated lactic acid level ED Provider Note NAME: KATHARINE STROUD AGE: 70 SEX: F : 1950 ARRIVES VIA: Ambulance INFORMANT: [Patient][nursing] ED PROVIDER(S): [Santos Dawn MD] CHIEF COMPLAINT: Weakness, hives HISTORY OF PRESENT ILLNESS: The patient is a 70-year-old female who presents to the ER with complaints of weakness and hives. The patient has been using Keflex as she is having an upcoming ureteral stent replacement at [facility] tomorrow morning at around 6 AM. She has an allergy to Keflex and thus, she has been using prednisone and Benadryl. She was fine for about a week but then on Sunday, developed hives. She stopped the medication. She is still having allergic reaction symptoms. This morning, her lips began to swell a bit. No shortness of breath, no wheezing. She is very itchy as the hives are everywhere. Patient states that in addition to all this, today, she felt quite weak and had to try to use a walker. She was unable to stay on her feet even with a walker and slid down the wall. She presents by ambulance for evaluation. The patient has not had fever, cough, cold or congestion. She has no urinary complaints currently. She has not had vomiting or diarrhea. She wondered if she might be dehydrated. REVIEW OF SYSTEMS: See HPI for pertinent positives and negatives. A total of ten systems were reviewed and were otherwise negative. PMHx/PSHx: See Below SOCIAL HISTORY: See Below. PHYSICAL EXAM: GENERAL: Patient is in no acute distress. HEENT: No acute trauma, normocephalic atraumatic, mucous membranes moist, no nasal congestion, no scleral icterus. There is some subtle upper and lower lip edema. No uvular edema. NECK: No stridor, no adenopathy, no meningismus, trachea is midline. LUNGS: Clear to auscultation bilaterally, no wheeze, no rhonchi, breath sounds equal. HEART: 2/6 systolic murmur, regular rate and rhythm. ABDOMEN: Soft, nontender, bowel sounds positive, no peritonitis. EXTREMITIES: No cyanosis, mild bilateral pedal edema, full range of motion of all the joints without pain or difficulty, no signs for acute trauma. NEUROLOGIC: Oriented x 3, no acute motor or sensory deficits, no focal weakness. SKIN: Patient has blanching, flat, patchy erythematous lesions across her body consistent with urticaria. DIFFERENTIAL DIAGNOSIS: Anaphylaxis, uvular edema, allergic reaction, medication reaction, dehydration, anemia, electrolyte imbalance, infection, bacteremia, sepsis, among others. EMERGENCY DEPARTMENT COURSE/PROCEDURES: ECG: Indication was weakness. The ECG shows a normal sinus rhythm with a rate of 77. There is LVH present. There is a right bundle branch block present. There is no ST elevation, no PVCs. The QTc is 473. Compared to an ECG from 27 August 2017, I see no significant change. Continuous Cardiac Monitoring: An order was placed for continuous cardiac monitoring. The monitor shows a rate of 71 with normal sinus rhythm. Critical Care Note: I have personally spent 39 minutes of critical care time in the direct management of this patient. This includes bedside care, interpretation of diagnostic studies, and testing, discussion with consultants, patient, and family members, and other required patient management activities. This 39 minutes is in excess of all separately billable procedures. MEDICAL DECISION MAKING: There is no leukocytosis. There is no concerning anemia. Platelet count is normal. Sodium was low at 127. There was elevation to the creatinine consistent with acute kidney injury. Lactic acid level was elevated consistent with potential infection versus dehydration. No worrisome liver enzyme elevation. The patient appeared to be in a euthyroid state. ECG showed a normal sinus rhythm, no obvious ischemia. Cardiac enzyme testing x1 was slightly elevated, possibly consistent with cardiac injury versus mismatch. Urinalysis was consistent with infection. Yeast was also seen. COVID, influenza and RSV testing returned negative. Chest x-ray did not show pneumonia or CHF. Abdominal and pelvis CT showed the ureteral stent to be in position. There was no ureteral obstruction. The patient received IV saline, 1.5 L. She was given IV meropenem as antibiotic coverage. She received IV Solu-Medrol and IV Benadryl. The patient presents with hives. The hives are likely from her Keflex use. She was using Keflex for a resistant UTI. The patient has acute kidney injury, dehydration, and elevated lactic acid level, hyponatremia, a persistent UTI and urticaria. I do think she requires a hospital stay. I spoke with the patient and case management. The on-call spitalist was consulted. The patient requires further IV antibiotic therapy, treatment for her allergic reaction, hydration therapy. I did speak with the urology team from [facility] in [place], Dr. Wilson. The patient did not need emergent stent removal or replacement. The stent exchange can be scheduled as an outpatient once she is improved. Past Med/Surg History Medical History Anticardiolipin antibody positive Aortic insufficiency Diabetes mellitus with complication in adult patient Diabetic retinopathy Diverticulosis Fatigue Gastroesophageal reflux disease Gastroparesis Hyperlipidemia Hypertension Lumbar radiculopathy Morbid obesity Nephrolithiasis Osteoarthritis of knee Osteopenia Psoriasis Pulmonary nodules/lesions, multiple Retroperitoneal fibrosis Spinal stenosis Vitiligo Surgical History (Updated 11/13/18 @ 22:15 by Mateo Saini MD) H/O lumpectomy Left breast 2002 Status post laparoscopic cholecystectomy Status post placement of ureteral stent Right ureteral stent Family History (Updated 02/04/20 @ 10:37 by Mine Rodriguez MA) Aunt Breast cancer Grandmother (Maternal) Ovarian cancer Father Myocardial infarction Prostate cancer Denies family history of Coronary heart disease Colorectal cancer Social History Smoking Status: Never smoker Second Hand Exposure: No; Hx Alcohol Use: Yes Hx Substance Use: No Preferred Language: Wallisian Communication Ability: Effective Hearing Ability: Normal 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 marital status: Current Living Situation: Spouse current occupational status: 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 Feels Safe at Home: Yes Childhood Exposure to Second-Hand Smoke: Yes Diet Comment: low fat caffeine: Yes Dental Care, Regularly: Yes Physical Activity Frequency: Does not Exercise Seatbelt Use: always Sunscreen Use: Yes Allergies Allergies Allergy/AdvReac Type Severity Reaction Status Date / Time amoxicillin Allergy Intermediate Hives Verified 06/26/21 15:48 fluconazole Allergy Mild HIVES Verified 06/26/21 15:48 cephalexin Allergy Unknown hives, Unverified 06/26/21 15:48 itchy hydrochlorothiazide Allergy Unknown DYAZIDE-KIRSTIN Verified 06/26/21 15:48 H nifedipine Allergy Unknown RASH Verified 06/26/21 15:48 nitrofurantoin Allergy Unknown RASH Verified 06/26/21 15:48 olmesartan Allergy Unknown GI UPSET, Verified 06/26/21 15:48 WEIGHT LOSS Sulfa (Sulfonamide Allergy Unknown RASH Verified 06/26/21 15:48 Antibiotics) triamterene Allergy Unknown DYAZIDE-KIRSTIN Verified 06/26/21 15:48 H Home Meds Home Medications Medication Instructions Recorded Confirmed lancets 33 gauge (Sunita Deljulian #100 ea 11/11/18 02/09/21 Lancets) multivitamin (Multiple Vitamins) 1 tab PO DAILY 11/11/18 06/26/21 omega-3 acid ethyl esters 1 gram 1 cap PO DAILY cap 11/11/18 06/26/21 capsule Ecotrin Low Strength 325 mg PO DAILY 06/26/21 06/26/21 celecoxib 200 mg capsule 200 mg PO BID 06/26/21 06/26/21 clobetasol 1 applic TOPICAL DAILY PRN 06/26/21 06/26/21 clobetasol 0.05 % topical foam 1 applic TOPICAL HS PRN 06/26/21 06/26/21 cyanocobalamin (vitamin B-12) 100 mcg PO DAILY 06/26/21 06/26/21 diphenhydramine HCl 25 mg capsule 25 mg PO Q12H PRN 06/26/21 06/26/21 fluocinonide 1 applic TOPICAL DAILY PRN 06/26/21 06/26/21 glucosamine sulf dipot 1 cap PO BID 06/26/21 06/26/21 chlr,msm,chond 550 mg-C 30 mg-pita 1 mg capsule (Glucosamine Chondroitin) Previous Rx's Medication Instructions Recorded antiarthritic combination no.2 900 See Rx Instructions PO .COMPLEX 07/07/19 mg tablet (glucosamine-chondroitin) #30 tab cranberry 400 mg capsule 400 mg PO DAILY #30 cap 07/07/19 melatonin 10 mg capsule 10 mg PO HS PRN #30 cap 07/07/19 Diabetic Shoes #1 ea 08/12/19 triamcinolone acetonide 0.1 % 1 applic TOPICAL UD #30 g 12/23/19 topical cream albuterol sulfate 90 mcg/actuation 1 inh INH QID PRN #8 gm 07/03/20 aerosol inhaler (ProAir HFA) mecobalamin (vitamin B12) 1,000 1,000 mcg PO DAILY #30 tab 08/11/20 mcg chewable tablet diclofenac sodium 1 % topical gel 2 g TOP QID #300 g 11/12/20 losartan 100 mg tablet 100 mg PO DAILY #30 tab 12/06/20 gabapentin 600 mg tablet 600 mg PO TID #90 tab 02/04/21 triamcinolone acetonide 0.1 % 1 applic TOP BID PRN #80 g 02/04/21 topical cream triamcinolone acetonide 40 mg/mL 60 mg IM ONCE #1 ml 02/04/21 suspension for injection metformin 500 mg tablet,extended 2,000 mg PO DAILY #120 tab 03/04/21 release 24 hr pantoprazole 40 mg tablet,delayed 40 mg PO DAILY #30 tab 03/04/21 release potassium citrate 10 mEq (1,080 10 meq PO TID #90 tab 03/04/21 mg) tablet,extended release rosuvastatin 5 mg tablet 5 mg PO HS #30 tab 03/11/21 lorazepam 0.5 mg tablet 0.5 mg PO DAILY PRN #14 tab 03/14/21 tramadol 50 mg tablet 50 mg PO Q6H PRN #50 tab 03/14/21 semaglutide 0.5 mg SQ WEEKLY #3 ml 05/02/21 diltiazem HCl 240 mg capsule,24 240 mg PO BID #60 cap 05/13/21 hr,extended release gabapentin 300 mg capsule 300 mg PO TID #90 cap 05/13/21 carvedilol 6.25 mg tablet 6.25 mg PO BID #180 tab 05/30/21 methylprednisolone 4 mg tablets in See Rx Instructions .ROUTE 06/17/21 a dose pack .COMPLEX #21 ea furosemide 40 mg tablet 80 mg PO DAILY #180 tab 06/20/21 Results & Data (ED) Vital Signs Vital Signs - 24 hr 06/26/21 14:07 06/26/21 14:08 06/26/21 14:46 Temperature 36.8 C Temperature Source Oral Pulse Rate 71 81 Pulse Rate from SpO2 Sensor Pulse Rhythm Regular Pulse Strength Normal Respiratory Rate 18 19 Respiratory Effort / Characteristics Non-Labored Respiratory Depth Normal Blood Pressure 111/73 Blood Pressure Mean 85 Pulse Oximetry 97 Oxygen Delivery Method Room Air Room Air Nasal Cannula Oxymask Aerosol Mask Ambu-Bag BiPAP CPAP Free Flow/Blow- by High Flow Nasal Cannula Oxyhood Mechanical Vent Nasal CPAP Nebulizer Non-rebreather T-Piece Trach Collar Face Tent Other Oxygen Flow Rate 0 Sepsis Recent Fever Within 48 Hours No Sepsis New/Unexplained Change in Mental Status N/A Sepsis Action Taken by Nursing No Action Required 06/26/21 15:00 06/26/21 15:47 06/26/21 16:00 Temperature Temperature Source Pulse Rate 81 73 73 Pulse Rate from SpO2 Sensor 72 73 Pulse Rhythm Pulse Strength Respiratory Rate 25 H 21 16 Respiratory Effort / Characteristics Respiratory Depth Blood Pressure 130/85 110/79 Blood Pressure Mean 100 89 Pulse Oximetry 95 94 Oxygen Delivery Method Oxygen Flow Rate Sepsis Recent Fever Within 48 Hours Sepsis New/Unexplained Change in Mental Status Sepsis Action Taken by Nursing 06/26/21 17:41 Temperature Temperature Source Pulse Rate 78 Pulse Rate from SpO2 Sensor 78 Pulse Rhythm Pulse Strength Respiratory Rate 20 Respiratory Effort / Characteristics Respiratory Depth Blood Pressure 102/76 Blood Pressure Mean 84 Pulse Oximetry 93 Oxygen Delivery Method Room Air Oxygen Flow Rate Sepsis Recent Fever Within 48 Hours Sepsis New/Unexplained Change in Mental Status Sepsis Action Taken by Alf Medications Current Medication List: was personally reviewed by me Laboratory Data Attestation: I reviewed the patient's lab results. Result diagrams: 06/26/21 15:34 06/26/21 19:33 Lab Results 06/26/21 06/26/21 06/26/21 Range/Units 14:47 15:34 15:34 WBC 8.97 (4.8-10.8) K/uL RBC 5.81 H (4.2-5.4) M/uL Hgb 17.5 H (12.0-16.0) g/dL Hct 51.8 H (37-47) % MCV 89.2 (80-100) fL MCH 30.1 (25-34) pg MCHC 33.8 (32-36) g/dL RDW Std Deviation 46.3 (36.4-46.3) fL RDW Coeff of Evin 14.4 (11.5-14.5) % Plt Count 307 (130-400) K/uL MPV 11.0 H (7.4-10.4) fL Immature Gran % (Auto) 0.3 % Neut % (Auto) 83.6 % Lymph % (Auto) 12.5 % [place] % (Auto) 3.6 % Eos % (Auto) 0.0 % Baso % (Auto) 0.0 % Neut # (Auto) 7.50 H (1.4-6.5) K/uL Lymph # (Auto) 1.12 L (1.2-3.4) K/uL [place] # (Auto) 0.32 (0.11-0.59) K/uL Eos # (Auto) 0.00 (0-0.5) K/uL Baso # (Auto) 0.00 (0-0.2) K/uL Immature Gran # (Auto) 0.03 H (0.00-0.02) K/uL Blood Smear Review Cancelled Sodium 127 L (136-145) mmol/L Potassium 5.0 (3.5-5.1) mmol/L Chloride 94 L (98-107) mmol/L Carbon Dioxide 19 L (21-32) mmol/L Anion Gap 14 H (3-11) BUN 43 H (6-23) mg/dl Creatinine 1.88 H (0.6-1.2) mg/dl Est Cr Clr Drug Dosing 36.6 ml/min Est GFR ( Amer) 30.8 ml/min Est GFR (Non-Af Amer) 26.6 ml/min BUN/Creatinine Ratio 22.9 H (10-20) Glucose 235 H (70-99(Fasting)) mg/dl Lactate 3.6 H* (0.4-2.0) mmol/L Calcium 9.0 (8.5-10.1) mg/dl Magnesium 2.4 (1.7-2.4) mg/dl Total Bilirubin 0.7 (0.2-1.0) mg/dl AST 23 (13-39) U/L ALT 26 (7-52) U/L Alkaline Phosphatase 55 (34-104) U/L Troponin I High Sens 16.8 H (0-14) pg/ml Total Protein 5.9 L (6.0-8.3) gm/dl Albumin 3.4 (3.4-5.0) gm/dl Globulin 2.5 (2.5-4.0) gm/dl Albumin/Globulin Ratio 1.4 (0.9-2) TSH (0.300-4.500) uIu/ml Urine Color Urine Appearance (Clear) Urine pH (4.5-7.5) Ur Specific [place] (1.000-1.030) Urine Protein (Negative) Urine Glucose (UA) (Negative) Urine Ketones (Negative) Urine Blood (Negative) Urine Nitrite (Negative) Urine Bilirubin (Negative) Urine Urobilinogen (Negative) Ur Leukocyte Esterase (Negative) Urine WBC (Auto) (0-5) /hpf Urine RBC (Auto) (0-4) /hpf U Hyaline Cast (Auto) (0-5) /lpf U Epithel Cells (Auto) (0-5) /lpf Urine Bacteria (Auto) (Negative) Urine Yeast (None Prsent) SARS-CoV-2 (PCR) (Negative) Influenza Type A (PCR) (Neg) Influenza Type B (PCR) (Neg) RSV (RT-PCR) (Neg) 06/26/21 06/26/21 06/26/21 Range/Units 15:34 15:45 16:47 WBC (4.8-10.8) K/uL RBC (4.2-5.4) M/uL Hgb (12.0-16.0) g/dL Hct (37-47) % MCV (80-100) fL MCH (25-34) pg MCHC (32-36) g/dL RDW Std Deviation (36.4-46.3) fL RDW Coeff of Evin (11.5-14.5) % Plt Count (130-400) K/uL MPV (7.4-10.4) fL Immature Gran % (Auto) % Neut % (Auto) % Lymph % (Auto) % [place] % (Auto) % Eos % (Auto) % Baso % (Auto) % Neut # (Auto) (1.4-6.5) K/uL Lymph # (Auto) (1.2-3.4) K/uL [place] # (Auto) (0.11-0.59) K/uL Eos # (Auto) (0-0.5) K/uL Baso # (Auto) (0-0.2) K/uL Immature Gran # (Auto) (0.00-0.02) K/uL Blood Smear Review Sodium (136-145) mmol/L Potassium (3.5-5.1) mmol/L Chloride (98-107) mmol/L Carbon Dioxide (21-32) mmol/L Anion Gap (3-11) BUN (6-23) mg/dl Creatinine (0.6-1.2) mg/dl Est Cr Clr Drug Dosing ml/min Est GFR ( Amer) ml/min Est GFR (Non-Af Amer) ml/min BUN/Creatinine Ratio (10-20) Glucose (70-99(Fasting)) mg/dl Lactate (0.4-2.0) mmol/L Calcium (8.5-10.1) mg/dl Magnesium (1.7-2.4) mg/dl Total Bilirubin (0.2-1.0) mg/dl AST (13-39) U/L ALT (7-52) U/L Alkaline Phosphatase (34-104) U/L Troponin I High Sens (0-14) pg/ml Total Protein (6.0-8.3) gm/dl Albumin (3.4-5.0) gm/dl Globulin (2.5-4.0) gm/dl Albumin/Globulin Ratio (0.9-2) TSH 1.226 (0.300-4.500) uIu/ml Urine Color Yellow Urine Appearance Cloudy A (Clear) Urine pH 5.0 (4.5-7.5) Ur Specific [place] 1.016 (1.000-1.030) Urine Protein Trace H (Negative) Urine Glucose (UA) Negative (Negative) Urine Ketones Negative (Negative) Urine Blood Negative (Negative) Urine Nitrite Negative (Negative) Urine Bilirubin Negative (Negative) Urine Urobilinogen Negative (Negative) Ur Leukocyte Esterase 2+ H (Negative) Urine WBC (Auto) >30 H (0-5) /hpf Urine RBC (Auto) 0-4 (0-4) /hpf U Hyaline Cast (Auto) 1-5 (0-5) /lpf U Epithel Cells (Auto) 10-20 H (0-5) /lpf Urine Bacteria (Auto) 4+ H (Negative) Urine Yeast Budding w/ Hyphae A (None Prsent) SARS-CoV-2 (PCR) NEGATIVE (Negative) Influenza Type A (PCR) Negative (Neg) Influenza Type B (PCR) Negative (Neg) RSV (RT-PCR) Negative (Neg) Administered Medications Diphenhydramine HCl (Diphenhydramine 50 Mg/Ml Vial) 25 mg IV Q6H PRN PRN Reason: Itching Stop: 07/26/21 18:59 Last Admin: 06/26/21 20:50 Dose: 25 mg Documented by: [id number] Sodium Chloride (Nss 1000ml) 1,000 mls @ 120 mls/hr IV .Q8H20M EV Stop: 07/26/21 19:44 Last Admin: 06/26/21 20:50 Dose: 120 mls/hr Documented by: [id number] Discontinued Medications Diphenhydramine HCl (Diphenhydramine 50 Mg/Ml Vial) 25 mg IV NOW STA Stop: 06/26/21 14:08 Last Admin: 06/26/21 14:57 Dose: 25 mg Documented by: [id number] Sodium Chloride (Nss) 500 mls @ 999 mls/hr IV .Q31M EV Stop: 06/26/21 14:45 Last Infusion: 06/26/21 16:20 Dose: 0 mls/hr Documented by: [id number] Admin: 06/26/21 15:26 Dose: 999 mls/hr Documented by: [id number] Famotidine (Pepcid 20mg Iv Push) 20 mg in 5 mls @ 2.5 mls/min IV NOW STA Stop: 06/26/21 14:08 Last Admin: 06/26/21 14:57 Dose: 2.5 mls/min Documented by: [id number] Sodium Chloride (Nss 1000ml) 500 mls @ 999 mls/hr IV .Q31M ONE Stop: 06/26/21 15:52 Last Infusion: 06/26/21 16:20 Dose: 0 mls/hr Documented by: [id number] Admin: 06/26/21 15:26 Dose: 999 mls/hr Documented by: [id number] Meropenem 500 mg/ Syringe 10 mls @ 2 mls/min IV NOW STA; Protocol Stop: 06/26/21 16:51 Last Admin: 06/26/21 17:39 Dose: 2 mls/min Documented by: [id number] Sodium Chloride (Nss 1000ml) 500 mls @ 999 mls/hr IV .Q31M ONE Stop: 06/26/21 17:48 Last Infusion: 06/26/21 21:25 Dose: 0 mls/hr Documented by: [id number] Admin: 06/26/21 17:40 Dose: 125 mls/hr Documented by: [id number] Methylprednisolone (Methylprednisolone 125 Mg/2 Ml Vial) 60 mg IV NOW STA Stop: 06/26/21 14:08 Last Admin: 06/26/21 14:57 Dose: 60 mg Documented by: [id number] Imaging Data Radiologist's Impression: Chest X-Ray 06/26/21 14:07 XR chest 1V portable CLINICAL HISTORY: weakness COMPARISON STUDY: No previous studies for comparison. FINDINGS: A zipper on the initial image was on the patient. This was removed and not present on the second image. Lung findings are mildly diminished, unchanged. No pneumothorax or pleural effusion is noted. There is no consolidation or evidence for pulmonary edema. Cardiomediastinal silhouette is stable. Appearance of the chest is unchanged. IMPRESSION: No acute cardiopulmonary findings. No change in appearance of the chest. ACT 112: Negative or not required by law. Electronically signed by: Eric Galan M.D. 06/26/2021 2:27 PM Abdomen/Pelvis CT 06/26/21 16:49 CT OF THE ABDOMEN AND PELVIS WITHOUT CONTRAST CLINICAL HISTORY: Possible stent obstruction, hydronephrosis. COMPARISON STUDY: Right upper quadrant ultrasound November 12, 2018. CT of the abdomen and pelvis November 21, 2013. TECHNIQUE: Axial images of the abdomen and pelvis were obtained without IV contrast. Images were reviewed in the axial, sagittal, and coronal planes. Automated exposure control was utilized for the study. A dose lowering technique was utilized adhering to the principles of ALARA. FINDINGS: A few small bilateral lower lobe pulmonary nodules are similar to CT of November 21, 2013. These are likely benign. No pneumatosis, free air or portal venous gas is present. Right ureteral stent is in place. There is no hydronephrosis. Note is made of an elongated irregular proximal right ureteral calculus that measures 1.8 x 1.1 x 0.4 cm. A few smaller distal right ureteral calculi measure up to 5 mm. Marked right renal atrophy is again noted. Possible 1.6 cm lesion within the upper pole of the right kidney is suboptimally assessed on this unenhanced exam. No left-sided urinary calculi are identified. Evaluat ion the remainder of the abdomen and pelvis is suboptimal as unenhanced exam. Calcifications within the left hepatic lobe are chronic. Slight dilatation of the common bile duct is likely related to cholecystectomy. Unenhanced images of the main, adrenal glands and pancreas are unremarkable. The stomach is mildly distended. Appendix is not identified. A right lower quadrant ventral hernia contains a loop of small bowel. There is no resultant bowel obstruction. Extensive colonic diverticulosis is noted without evidence for acute diverticulitis. There may be a calcified fibroid. Additional suspected fibroids are suboptimally assessed on this unenhanced exam. The lymphadenopathy is present. There is no ascites. No acute fracture or suspicious lesion within the visualized skeletal structures is present. IMPRESSION: 1. Right ureteral stent in place. No hydronephrosis. Elongated irregular proximal right ureteral calculus that measures 1.8 x 1.1 x 0.4 cm. Several smaller distal right ureteral calculi. 2. Marked right renal atrophy. Possible 1.6 cm lesion arising from the upper pole of the right kidney. Nonemergent renal protocol CT is recommended. 3. Extensive colonic diverticulosis. No evidence for acute diverticulitis. 4. Lower abdominal ventral hernia which contains a loop of small bowel. No resultant bowel obstruction. ACT 112: Negative or not required by law. Electronically signed by: Eric Galan M.D. 06/26/2021 5:43 PM Discharge Plan Visit Data Chief Complaint: Allergic Reaction Stated Complaint: Allergic reaction and weakness. ED Provider: Santos Dawn Discharge Problem: Weakness, MAURICIO (acute kidney injury), Hives, Acute hyponatremia, Acute UTI, Medication reaction, Elevated lactic acid level Patient Disposition: Admitted As Inpatient Condition: Fair Discharge Instructions Interventions: ED Discharge Assessment Last Done: 06/26/21 19:58
[2021-06-26] MEDS ORDERED: SODIUM CHLORIDE 0.9% 500 ML IV SCH (14:15)
--- NOTE | 2021-06-26 14:29 | XRay Report ---
XR chest 1V portable CLINICAL HISTORY: weakness COMPARISON STUDY: No previous studies for comparison. FINDINGS: A zipper on the initial image was on the patient. This was removed and not present on the s econd image. Lung findings are mildly diminished, unchanged. No pneumothorax or pleural effusion is n oted. There is no consolidation or evidence for pulmonary edema. Cardiomediastinal silhouette is stab le. Appearance of the chest is unchanged. IMPRESSION: No acute cardiopulmonary findings. No change in appearance of the chest. ACT 112: Negative or not required by law. Electronically signed by: Eric Galan M.D. 06/26/2021 2:27 PM
[2021-06-26] MEDS ORDERED: SODIUM CHLORIDE 0.9% 1000ML 500 ML IV ONE ×2 (15:22→17:18)
[2021-06-26 16:00] LABS: Troponin I High Sensitivity 16.8 pg/ml (0-14)
[2021-06-26 16:11] LABS: Albumin Globulin Ratio 1.4 (0.9-2); Albumin Level 3.4 gm/dl (3.4-5.0); BUN Creatinine Ratio 22.9 (10-20); Bilirubin,Total 0.7 mg/dl (0.2-1.0); Creatinine Clr Calc Pharmacy 36.6 ml/min; Est GFR (African American) 30.8 ml/min; Est GFR (Non-African American) 26.6 ml/min; Globulin 2.5 gm/dl (2.5-4.0); Magnesium 2.4 mg/dl (1.7-2.4); Total Protein 5.9 gm/dl (6.0-8.3)
[2021-06-26] MEDS ORDERED: MEROPENEM CONSULT ACTIVE PRN ×2 (16:47→19:00)
[2021-06-26] MEDS ORDERED: MEROPENEM 500 MG in SYRINGE 0 ML IV STA (16:47)
[2021-06-26 16:52] LABS: Influenza A virus by PCR Negative (Neg); Influenza B virus by PCR Negative (Neg); RSV by PCR Negative (Neg); SARS CoV2 RNA(COVID-19) InHosp NEGATIVE (Negative)
[2021-06-26 16:52] LABS: Hematocrit (blood only) 51.8 % (37-47); Hemoglobin 17.5 g/dL (12.0-16.0); Mean Corpuscular Hemoglobin 30.1 pg (25-34); Mean Corpuscular Hgb Conc 33.8 g/dL (32-36); Mean Corpuscular Volume 89.2 fL (80-100); Platelet Count 307 K/uL (130-400); RDW Coefficient of Variation 14.4 % (11.5-14.5); RDW Standard Deviation 46.3 fL (36.4-46.3); Red Blood Count 5.81 M/uL (4.2-5.4); White Blood Count 8.97 K/uL (4.8-10.8)
[2021-06-26 16:53] LABS: Immature Granulocytes # (auto) 0.03 K/uL (0.00-0.02); Immature Granulocytes % (auto) 0.3 %; Lymphocytes # (auto) 1.12 K/uL (1.2-3.4); Lymphocytes % (auto) 12.5 %; Monocytes # (auto) 0.32 K/uL (0.11-0.59); Monocytes % (auto) 3.6 %; Neutrophils % (auto) 83.6 %
--- NOTE | 2021-06-26 17:46 | CT Scan Report ---
CT OF THE ABDOMEN AND PELVIS WITHOUT CONTRAST CLINICAL HISTORY: Possible stent obstruction, hydronephrosis. COMPARISON STUDY: Right upper quadrant ultrasound November 12, 2018. CT of the abdomen and pelvis O ct2013. TECHNIQUE: Axial images of the abdomen and pelvis were obtained without IV contrast. Images were revi ewed in the axial, sagittal, and coronal planes. Automated exposure control was utilized for the christiana dy. A dose lowering technique was utilized adhering to the principles of ALARA. FINDINGS: A few small bilateral lower lobe pulmonary nodules are similar to CT of November 21, 2013. Th kathrine are likely benign. No pneumatosis, free air or portal venous gas is present. Right ureteral stent is in place. There is no hydronephrosis. Note is made of an elongated irregular proximal right urete ral calculus that measures 1.8 x 1.1 x 0.4 cm. A few smaller distal right ureteral calculi measure up to 5 mm. Marked right renal atrophy is again noted. Possible 1.6 cm lesion within the upper pole of the right kidney is suboptimally assessed on this unenhanced exam. No left-sided urinary calculi are identified. Evaluation the remainder of the abdomen and pelvis is suboptimal as unenhanced exam. Calc ifications within the left hepatic lobe are chronic. Slight dilatation of the common bile duct is lik varinder related to cholecystectomy. Unenhanced images of the main, adrenal glands and pancreas are unrema rkable. The stomach is mildly distended. Appendix is not identified. A right lower quadrant ventral h ernia contains a loop of small bowel. There is no resultant bowel obstruction. Extensive colonic dive rticulosis is noted without evidence for acute diverticulitis. There may be a calcified fibroid. Sreekanth tional suspected fibroids are suboptimally assessed on this unenhanced exam. The lymphadenopathy is p resent. There is no ascites. No acute fracture or suspicious lesion within the visualized skeletal st ructures is present. IMPRESSION: 1. Right ureteral stent in place. No hydronephrosis. Elongated irregular proximal right ureteral calc ulus that measures 1.8 x 1.1 x 0.4 cm. Several smaller distal right ureteral calculi. 2. Marked right renal atrophy. Possible 1.6 cm lesion arising from the upper pole of the right kidney . Nonemergent renal protocol CT is recommended. 3. Extensive colonic diverticulosis. No evidence for acute diverticulitis. 4. Lower abdominal ventral hernia which contains a loop of small bowel. No resultant bowel obstructio n. ACT 112: Negative or not required by law. Electronically signed by: Eric Galan M.D. 06/26/2021 5:43 PM
[2021-06-26 17:54] LABS: Appearance Urine Cloudy (Clear); Bacteria Urine Automated 4+ (Negative); Bilirubin Urine Negative (Negative); Blood Urine Negative (Negative); Color Urine Yellow; Glucose Urine UA Negative (Negative); Ketones Urine Negative (Negative); Leukocyte Esterase Urine 2+ (Negative); Nitrite Urine Negative (Negative); Protein Urine Trace (Negative); RBC Urine Automated 0-4 /hpf (0-4); Specific Gravity Urine 1.016 (1.000-1.030); Urobilinogen Urine Negative (Negative); WBC Urine Automated >30 /hpf (0-5)
[2021-06-26] MEDS ORDERED: ZOLPIDEM TARTRATE 5 MG TAB PO PRN (18:11)
[2021-06-26] MEDS ORDERED: POLYETHYLENE (MIRALAX) 17 GM PACK PO PRN (18:11)
[2021-06-26] MEDS ORDERED: ACETAMINOPHEN 325 MG TAB PO PRN (18:11)
[2021-06-26] MEDS ORDERED: ONDANSETRON INJ 2 MG/ML 2 ML VIAL IV PRN (18:11)
[2021-06-26] MEDS ORDERED: ALUMINUM/MAGNESIUM SUSP 30 ML UDC PO PRN (18:11)
[2021-06-26] MEDS ORDERED: TRIAMCINOLONE ACET 0.1% CR 15 GM TUBE TOP PRN (18:16)
[2021-06-26] MEDS ORDERED: NON-FORMULARY MEDICATION (Clobetasol 1 APPLN) TOP PRN (18:16)
[2021-06-26] MEDS ORDERED: diphenhydrAMINE Capsule 25 MG CAP PO PRN (18:16)
[2021-06-26] MEDS ORDERED: traMADol HCL 50 MG TABLET PO PRN (18:16)
[2021-06-26] MEDS ORDERED: PHARMACY GLYCEMIC MGMT CONSULT PRN (18:21)
[2021-06-26] MEDS ORDERED: NON-FORMULARY MEDICATION (Methylprednisolone 4 mg tablets,dose pack) SCH (18:30)
[2021-06-26] MEDS ORDERED: TRIAMCINOLONE ACET 40 MG/ML VIAL IM SCH (18:30)
[2021-06-26] MEDS ORDERED: [UNRECOGNIZED DRUG - REMARK] SQ SCH (18:30)
[2021-06-26] MEDS ORDERED: TRIAMCINOLONE ACET 0.1% CR 15 GM TUBE TOP SCH (18:30)
[2021-06-26] MEDS ORDERED: MELATONIN 3 MG TAB PO PRN (19:03)
[2021-06-26] MEDS ORDERED: ALBUTEROL HFA 8 GM INHALER INH PRN (19:04)
--- NOTE | 2021-06-26 19:08 | History & Physical Report ---
Date of Service June 26, 2021 Assessment & Plan (1) Sepsis: Plan: The patient presented to hospital with hypotension, acute kidney injury,elevated lactic acid generalized weakness sepsis needs to be rule out Proceed with blood culture urine culture Patient has active urine sediment 4+ bacteria in the urine and numerous white cells but should this is due to chronic infection due to left ureteral stricture I will offer urinalysis since 2019 shows significant amount of bacteria and white cells Last urine culture grew ESBL E. coli proceed with meropenem at this point pending results Contact the patient urologist in [facility] tomorrow (2) MAURICIO (acute kidney injury): Plan: Creatinine 1.88 baseline creatinine is about 0.88 IV fluids saline at rate of 120 mill per hour Hold Lasix Hold also (3) Hyponatremia: Plan: Likely secondary to sepsis dehydration poor oral intake Continue IV fluid Check BMP to (4) Maculopapular rash: Plan: Secondary to Keflex Stenosis Solu-Medrol Started on Benadryl as needed (5) Chronic urethral stricture: Plan: Patient was due for ureteral exchange coming week, will discuss it with her urologist (6) Diabetes: Plan: Hold metformin, proceed with glycemic control Accu-Cheks before meals and at (7) HTN (hypertension): Plan: Blood pressure soft systolic blood pressures 100 Hold Lasix Hold losartan For now continue cardiac carvedilol (8) High urine 2,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: History of Present Illness Chief Complaint: Generalized weakness, maculopapular rash Primary Care Provider: Mateo Saini MD The patient is a 70-year-old female with a past medical history significant for morbid obesity, history of anticardiolipin antibody positive, diabetes, hypertension, DVT, GERD, hepatitis, thyroid nodule, lung nodule, diabetic retinopathy, spinal stenosis, psoriasis, nephrolithiasis, gastroparesis with right ureteral stricture for which patient has periodic exchange of her right ureteral stent since 1994 who was supposed to have stent change coming week presented to the hospital with generalized weakness maculopapular rash hypertension and evidence of active urine sediment. Apparently patient had some preadmission test done about 2 weeks ago and according to the test she was started on Keflex for urinary tract infection. However, given patient was allergic to Keflex patient has been taking Benadryl and prednisone concurrently. She has been taking it for 7 days. She stopped taking medication last night and since then patient has been experiencing extreme weakness maculopapular rash. Upon admission patient was hypotensive, has evidence of urine tract infection with 4+ bacteria in the urine and significant amount of white cells. Her systolic blood pressure 100s. Patient does not have leukocytosis or shift to the left. Patient is afebrile. However her lactic acid is high at 3.6. Moreover she had evidence of acute kidney injury with a creatinine of 1.88 with a baseline creatinine of 0.8 Allergies Allergy/AdvReac Type Severity Reaction Status Date / Time amoxicillin Allergy Intermediate Hives Verified 06/26/21 15:48 fluconazole Allergy Mild HIVES Verified 06/26/21 15:48 cephalexin Allergy Unknown hives, Unverified 06/26/21 15:48 itchy hydrochlorothiazide Allergy Unknown DYAZIDE-KIRSTIN Verified 06/26/21 15:48 H nifedipine Allergy Unknown RASH Verified 06/26/21 15:48 nitrofurantoin Allergy Unknown RASH Verified 06/26/21 15:48 olmesartan Allergy Unknown GI UPSET, Verified 06/26/21 15:48 WEIGHT LOSS Sulfa (Sulfonamide Allergy Unknown RASH Verified 06/26/21 15:48 Antibiotics) triamterene Allergy Unknown DYAZIDE-KIRSTIN Verified 06/26/21 15:48 H Home Medications Medication Instructions Recorded Confirmed Type lancets 33 gauge (OneTouch Delica #100 ea 11/11/18 02/09/21 History Lancets) multivitamin (Multiple Vitamins) 1 tab PO DAILY 11/11/18 06/26/21 History omega-3 acid ethyl esters 1 gram 1 cap PO DAILY cap 11/11/18 06/26/21 History capsule antiarthritic combination no.2 900 See Rx Instructions PO .COMPLEX 07/07/19 06/26/21 Rx mg tablet (glucosamine-chondroitin) #30 tab cranberry 400 mg capsule 400 mg PO DAILY #30 cap 07/07/19 06/26/21 Rx melatonin 10 mg capsule 10 mg PO HS PRN #30 cap 07/07/19 06/26/21 Rx Diabetic Shoes #1 ea 08/12/19 02/09/21 Rx triamcinolone acetonide 0.1 % 1 applic TOPICAL UD #30 g 12/23/19 06/26/21 Rx topical cream albuterol sulfate 90 mcg/actuation 1 inh INH QID PRN #8 gm 07/03/20 06/26/21 Rx aerosol inhaler (ProAir HFA) mecobalamin (vitamin B12) 1,000 1,000 mcg PO DAILY #30 tab 08/11/20 06/26/21 Rx mcg chewable tablet diclofenac sodium 1 % topical gel 2 g TOP QID #300 g 11/12/20 06/26/21 Rx losartan 100 mg tablet 100 mg PO DAILY #30 tab 12/06/20 06/26/21 Rx gabapentin 600 mg tablet 600 mg PO TID #90 tab 02/04/21 06/26/21 Rx triamcinolone acetonide 0.1 % 1 applic TOP BID PRN #80 g 02/04/21 06/26/21 Rx topical cream triamcinolone acetonide 40 mg/mL 60 mg IM ONCE #1 ml 02/04/21 06/26/21 Rx suspension for injection metformin 500 mg tablet,extended 2,000 mg PO DAILY #120 tab 03/04/21 06/26/21 Rx release 24 hr pantoprazole 40 mg tablet,delayed 40 mg PO DAILY #30 tab 03/04/21 06/26/21 Rx release potassium citrate 10 mEq (1,080 10 meq PO TID #90 tab 03/04/21 06/26/21 Rx mg) tablet,extended release rosuvastatin 5 mg tablet 5 mg PO HS #30 tab 03/11/21 06/26/21 Rx lorazepam 0.5 mg tablet 0.5 mg PO DAILY PRN #14 tab 03/14/21 06/26/21 Rx tramadol 50 mg tablet 50 mg PO Q6H PRN #50 tab 03/14/21 06/26/21 Rx semaglutide 0.5 mg SQ WEEKLY #3 ml 05/02/21 06/26/21 Rx diltiazem HCl 240 mg capsule,24 240 mg PO BID #60 cap 05/13/21 06/26/21 Rx hr,extended release gabapentin 300 mg capsule 300 mg PO TID #90 cap 05/13/21 06/26/21 Rx carvedilol 6.25 mg tablet 6.25 mg PO BID #180 tab 05/30/21 06/26/21 Rx methylprednisolone 4 mg tablets in See Rx Instructions .ROUTE 06/17/21 06/26/21 Rx a dose pack .COMPLEX #21 ea furosemide 40 mg tablet 80 mg PO DAILY #180 tab 06/20/21 06/26/21 Rx Ecotrin Low Strength 325 mg PO DAILY 06/26/21 06/26/21 History celecoxib 200 mg capsule 200 mg PO BID 06/26/21 06/26/21 History clobetasol 1 applic TOPICAL DAILY PRN 06/26/21 06/26/21 History clobetasol 0.05 % topical foam 1 applic TOPICAL HS PRN 06/26/21 06/26/21 History cyanocobalamin (vitamin B-12) 100 mcg PO DAILY 06/26/21 06/26/21 History diphenhydramine HCl 25 mg capsule 25 mg PO Q12H PRN 06/26/21 06/26/21 History fluocinonide 1 applic TOPICAL DAILY PRN 06/26/21 06/26/21 History glucosamine sulf dipot 1 cap PO BID 06/26/21 06/26/21 History chlr,msm,chond 550 mg-C 30 mg-pita 1 mg capsule (Glucosamine Chondroitin) Past Med/Surg History Medical History (Updated 06/26/21 @ 19:26 by Renato Flores MD) Anticardiolipin antibody positive Aortic insufficiency Diabetes mellitus with complication in adult patient Diabetic retinopathy Diverticulosis Fatigue Gastroesophageal reflux disease Gastroparesis Hyperlipidemia Hypertension Lumbar radiculopathy Morbid obesity Nephrolithiasis Osteoarthritis of knee Osteopenia Psoriasis Pulmonary nodules/lesions, multiple Retroperitoneal fibrosis Spinal stenosis Vitiligo Surgical History (Updated 11/13/18 @ 22:15 by Mateo Saini MD) H/O lumpectomy Left breast 2002 Status post laparoscopic cholecystectomy Status post placement of ureteral stent Right ureteral stent Family History (Updated 02/04/20 @ 10:37 by Mine Rodriguez MA) Aunt Breast cancer Grandmother (Maternal) Ovarian cancer Father Myocardial infarction Prostate cancer Denies family history of Coronary heart disease Colorectal cancer Social History (Updated 08/11/20 @ 11:26 by Mine Rodriguez MA) Smoking Status: Never smoker Second Hand Exposure: No; Hx Alcohol Use: Yes Hx Substance Use: No Preferred Language: Korean Communication Ability: Effective Hearing Ability: Normal 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 marital status: Current Living Situation: Spouse current occupational status: 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 Feels Safe at Home: Yes Childhood Exposure to Second-Hand Smoke: Yes Diet Comment: low fat caffeine: Yes Dental Care, Regularly: Yes Physical Activity Frequency: Does not Exercise Seatbelt Use: always Sunscreen Use: Yes Review of Systems Review of Systems: General: Complains of generalized weakness malaise Neck: No tenderness no pain HEENT: No eye discharge no ear discharge Chest: No chest pain, no palpitation GI: Not distended, no nausea no vomiting Extremities: No edema no tenderness, maculopapular rash all over the body complains of pruritus Neurology: No headache no weakness Psychiatric: No depression no anxiety Physical Exam Physical Exam: General: Alert oriented x3, well-nourished Neck: No lymphadenopathy, supple Respiratory: Lungs are clear to auscultation no chest abnormality Cardiovascular: Regular rate and rhythm no murmur no gallop vegetation Abdomen: Soft bowel sounds active Extremities: No edema no tenderness Skin: Hives maculopapular rash Neurology: Alert oriented x3 no acute distress moves all extremities Psychiatry mood and affect appropriate Results & Data Results & Data ([facility]) Vital Signs (Past 12 Hours) Vital Signs Temp Pulse Resp BP Pulse Ox 06/26/21 17:41 78 20 102/76 93 06/26/21 16:00 73 16 110/79 94 06/26/21 15:47 73 21 130/85 95 06/26/21 15:00 81 25 H 06/26/21 14:46 81 19 06/26/21 14:08 36.8 C 71 18 111/73 97 Code Status & VTE Plan Code Status Full code Lovenox for DVT prophylax VTE Prophylaxis Plan VTE Prophylaxis will be ordered: Yes PG Care Time/CCT Total # of Minutes Spent Total Time Spent with Patient: Total time spent is greater than 50% in coordination of care (as documented) at patient's floor/unit and/or counseling patient: Coding Level of Care Code 65690 Initial Inpt Care Lvl 3 Diagnoses Sepsis A41.9 MAURICIO (acute kidney injury) N17.9 Maculopapular rash R21 Chronic urethral stricture Diabetes E11.9 HTN (hypertension) I10 High urine 2,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 R82.998 Hyponatremia E87.1
[2021-06-26] MEDS ORDERED: GLUCAGON FOR INJ 1 MG VIAL IM PRN (19:30)
[2021-06-26] MEDS ORDERED: GLUCOSE 10 TABS/TUBE PO PRN (19:30)
[2021-06-26] MEDS ORDERED: CARBOHYDRATES FOR HYPOGLYCEMIA PO PRN (19:30)
[2021-06-26] MEDS ORDERED: INSULIN ASPART PER UNIT SC SCH (19:30)
[2021-06-26] MEDS ORDERED: DEXTROSE 50% 50 ML SYRINGE IV PRN (19:30)
[2021-06-26] MEDS ORDERED: GLUCOSE 40% GEL 15 GM TUBE PO PRN (19:30)
[2021-06-26 20:29] LABS: BUN Creatinine Ratio 23.7 (10-20); Calcium 8.7 mg/dl (8.5-10.1); Creatinine Clr Calc Pharmacy 38.9 ml/min; Est GFR (African American) 33.1 ml/min; Est GFR (Non-African American) 28.6 ml/min; Potassium 4.6 mmol/L (3.5-5.1)
[2021-06-26] MEDS: diphenhydrAMINE 50 MG/ML VIAL IV PRN (20:50)
[2021-06-26] MEDS: SODIUM CHLORIDE 0.9% 1000ML 1,000 ML IV SCH (20:50)
[2021-06-26] MEDS ORDERED: NON-FORMULARY MEDICATION (Glucos Sul 2kcl-Msm-Chond-C-Mn [Glucosamine Chondroitin] 550-30- PO SCH (21:00)
[2021-06-26] MEDS ORDERED: DICLOFENAC SOD 1% GEL 100 GM TUBE EXT SCH (21:00)
[2021-06-26] MEDS: dilTIAZem HCL 240 MG CAPCR PO SCH (21:29)
[2021-06-26] MEDS: carvediloL 6.25 MG TAB PO SCH (21:29)
[2021-06-26] MEDS: POTASSIUM CITRATE 10 MEQ TAB PO SCH (21:30)
[2021-06-26] MEDS: ROSUVASTATIN CALCIUM 5 MG TAB PO SCH (21:30)
[2021-06-26] MEDS: methylPREDNISolone 40 MG in SYRINGE 0 ML IV SCH (21:30)
[2021-06-26] MEDS: GABAPENTIN 300 MG CAP PO SCH (21:31)
[2021-06-26] MEDS: GABAPENTIN 600 MG TAB PO SCH (21:31)
[2021-06-26] MEDS: INSULIN ASPART PER UNIT SC SCH (21:38)
[2021-06-27] MEDS: FLUOCINONIDE 0.05% CR 15 GM TUBE EXT PRN (00:55)
[2021-06-27] MEDS: methylPREDNISolone 40 MG in SYRINGE 0 ML IV SCH ×4 (02:26→20:29)
[2021-06-27] MEDS: MEROPENEM 500 MG in SYRINGE 0 ML IV SCH ×3 (02:26→18:33)
[2021-06-27] MEDS: diphenhydrAMINE 50 MG/ML VIAL IV PRN ×2 (03:05→09:25)
[2021-06-27] MEDS: SODIUM CHLORIDE 0.9% 1000ML 1,000 ML IV SCH ×3 (04:54→18:34)
--- NOTE | 2021-06-27 06:19 | Electrocardiogram Report ---
Test Reason : Blood Pressure : / mmHG Vent. Rate : 077 BPM Atrial Rate : 077 BPM P-R Int : 178 ms QRS Dur : 140 ms QT Int : 418 ms P-R-T Axes : 035 -64 038 degrees QTc Int : 473 ms Normal sinus rhythm Right bundle branch block Left anterior fascicular block Bifascicular block Voltage criteria for left ventricular hypertrophy Cannot rule out Septal infarct , age undetermined Abnormal ECG When compared with ECG of 27-AUG-2017 06:22, [place] interval has decreased Minimal criteria for Septal infarct are now Present Confirmed by Adama Campos ([id number]) on 06/27/2021 6:19:07 AM Referred By: REFERRED SELF Confirmed By:Adama Campos
[2021-06-27 07:07] LABS: BUN Creatinine Ratio 26.2 (10-20); Calcium 8.5 mg/dl (8.5-10.1); Creatinine Clr Calc Pharmacy 33.8 ml/min; Est GFR (African American) 27.6 ml/min; Est GFR (Non-African American) 23.8 ml/min; Potassium 4.6 mmol/L (3.5-5.1)
[2021-06-27 08:20] LABS: Estimated Average Glucose 134 mg/dl; Hemoglobin A1C 6.3 % (4.5-5.6)
[2021-06-27] MEDS: PANTOprazole 40 MG TAB PO SCH (08:35)
[2021-06-27] MEDS: CYANOCOBALAMIN (B-12) 500 MCG TABLET PO SCH (08:35)
[2021-06-27] MEDS: ASPIRIN 325 MG ECTAB PO SCH (08:35)
[2021-06-27] MEDS: POTASSIUM CITRATE 10 MEQ TAB PO SCH ×3 (08:36→20:29)
[2021-06-27] MEDS: carvediloL 6.25 MG TAB PO SCH ×2 (08:36→20:29)
[2021-06-27] MEDS: GABAPENTIN 600 MG TAB PO SCH ×3 (08:37→20:30)
[2021-06-27] MEDS: GABAPENTIN 300 MG CAP PO SCH ×3 (08:37→20:31)
[2021-06-27] MEDS: dilTIAZem HCL 240 MG CAPCR PO SCH ×2 (08:37→20:28)
[2021-06-27] MEDS: INSULIN ASPART PER UNIT SC SCH ×4 (08:43→20:26)
[2021-06-27] MEDS: ENOXAPARIN INJ 40 MG/0.4 ML SYR SQ SCH (08:47)
[2021-06-27] MEDS ORDERED: MULTIVITAMIN TAB PO SCH (09:00)
[2021-06-27] MEDS ORDERED: CYANOCOBALAMIN (B-12) 100 MCG TABLET PO SCH (09:00)
[2021-06-27] MEDS ORDERED: diphenhydrAMINE Capsule 25 MG CAP PO PRN (11:47)
[2021-06-27] MEDS ORDERED: INSULIN GLARGINE SOLOSTAR 100 UNITS/ML 3 ML PEN SC ONE ×2 (12:15→21:00)
--- NOTE | 2021-06-27 13:15 | Pharmacy Report ---
Pharmacy Glycemic Short Note 2 - Date of Service June 27, 2021 - Glycemic Short BSG Results (Last 24 hours): 06/26/21 06/26/21 06/26/21 14:47 19:33 20:27 Glucose 235 H 199 H POC Glucose 196 H 06/27/21 06/27/21 06/27/21 06:15 08:09 11:58 Glucose 162 H POC Glucose 170 H 185 H OUTPATIENT ANTIDIABETIC REGIMEN: * semaglutide 0.5mg SQ weekly * A1c 6.3% 06/27/21 ASSESSMENT: * Patient admitted for weakness/possible sepsis, currently being treated with meropenem (hx of ESBL?), does have ureteral stent with schedule change in upcoming week, appears to have MAURICIO * Initial BSG elevated, improved with novolog scale, however BSGs still above goal of 140 mg/dL, will add 1x dose of lantus and continue to monitor for changes * Continue novolog PLAN FOR INPATIENT GLYCEMIC CONTROL: * Hold outpatient oral diabetes medications * Basal insulin * Lantus 12 units SQ x1 * Bolus insulin * NovoLog per scale ACHS or Q6hrs while NPO * Goal Range: Low 110 mg/dL - High 140 mg/dL * Correction Factor: 20 mg/dL/unit * Nutritional / Prandial insulin per carb ratio of 1 unit per 10 grams CHO consumed
--- NOTE | 2021-06-27 16:49 | Urology Consultation ---
Date of Consultation June 27, 2021 Assessment & Plan (1) Sepsis: 70yo F with a hx of ureteral stricture managed with chronic right ureteral stent admitted with sepsis, MAURICIO, hyponatremia. - Plan of care reviewed with Dr. Hare, on-call urologist. - Urology consulted for stent exchange. - Pt due for stent exchange this week, typically follows with [facility] urology. - Discussed possible stent exchange with patient/family while here. - Pt reports that she requires a specific stent which unfortunately we do not have here. - Due to the special requirements and equipment, recommend she follow-up with [facility] urology for her stent exchange. - Thank you for allowing us to participate in the acute care of Mrs. Wilson. Please reconsult us with additional questions, concerns or changes in patient status. History of Present Illness Reason for Consultation: stent exchange Attending Physician: Renato Flores MD History of Present Illness 70yo F with a past medical history significant for morbid obesity, history of anticardiolipin antibody positive, diabetes, hypertension, DVT, GERD, hepatitis, thyroid nodule, lung nodule, diabetic retinopathy, spinal stenosis, psoriasis, nephrolithiasis, gastroparesis, and right ureteral stricture managed with chronic right ureteral stent who was admitted with sepsis, MAURICIO, hyponatremia, and maculopapular rash. Per her report, she had some preadmission testing for her upcoming stent exchange done about 2 weeks ago and per culture results, was started on Keflex for urinary tract infection. However, given patient was allergic to Keflex, patient had been taking Benadryl and prednisone concurrently. She has been taking it for 7 days. She stopped taking medication yesterday and began to experience extreme weakness and a maculopapular rash and presented to the ED for evaluation. Urology consulted for stent exchange. Pt has a hx of right ureteral stricture managed with a chronic right ureteral stent since 1994. She follows with [facility] urology ( Dr. Valdez) and typically has stent exchanges every 6mo. Her last stent exchange was Dec 2020 and was scheduled for her next exchange on 06/27/21. Chart review from admission- Afebrile Wbc 8.97 Hgb 17.5 Cr 1.77 Urinalysis with 2+LE, >30WBC, 4+bacteria, budding yeast, negative nitrite, negative blood Urine culture pending. Blood culture prelim NGTD, repeat pending CT abdomen pelvis - 1. Right ureteral stent in place. No hydronephrosis. Elongated irregular proximal right ureteral calculus that measures 1.8 x 1.1 x 0.4 cm. Several smaller distal right ureteral calculi. 2. Marked right renal atrophy. Possible 1.6 cm lesion arising from the upper pole of the right kidney. Nonemergent renal protocol CT is recommended. 3. Extensive colonic diverticulosis. No evidence for acute diverticulitis. 4. Lower abdominal ventral hernia which contains a loop of small bowel. No resultant bowel obstruction. Pt examined at bedside this afternoon. Awake, resting in bed on arrival. No acute distress. Family at bedside. Pt reports needing a special lubricated/coated stent. She also reports requiring a specific anesthesia regimen for her stent exchanges in the past given her multiple allergies and reactions in the past. Allergies Allergy/AdvReac Type Severity Reaction Status Date / Time amoxicillin Allergy Intermediate Hives Verified 06/26/21 15:48 fluconazole Allergy Mild HIVES Verified 06/26/21 15:48 cephalexin Allergy Unknown hives, Unverified 06/26/21 15:48 itchy hydrochlorothiazide Allergy Unknown DYAZIDE-KIRSTIN Verified 06/26/21 15:48 H nifedipine Allergy Unknown RASH Verified 06/26/21 15:48 nitrofurantoin Allergy Unknown RASH Verified 06/26/21 15:48 olmesartan Allergy Unknown GI UPSET, Verified 06/26/21 15:48 WEIGHT LOSS Sulfa (Sulfonamide Allergy Unknown RASH Verified 06/26/21 15:48 Antibiotics) triamterene Allergy Unknown DYAZIDE-KIRSTIN Verified 06/26/21 15:48 H Home Medications Medication Instructions Recorded Confirmed Type lancets 33 gauge (OneTouch Delica #100 ea 11/11/18 02/09/21 History Lancets) multivitamin (Multiple Vitamins) 1 tab PO DAILY 11/11/18 06/26/21 History omega-3 acid ethyl esters 1 gram 1 cap PO DAILY cap 11/11/18 06/26/21 History capsule antiarthritic combination no.2 900 See Rx Instructions PO .COMPLEX 07/07/19 06/26/21 Rx mg tablet (glucosamine-chondroitin) #30 tab cranberry 400 mg capsule 400 mg PO DAILY #30 cap 07/07/19 06/26/21 Rx melatonin 10 mg capsule 10 mg PO HS PRN #30 cap 07/07/19 06/26/21 Rx Diabetic Shoes #1 ea 08/12/19 02/09/21 Rx triamcinolone acetonide 0.1 % 1 applic TOPICAL UD #30 g 12/23/19 06/26/21 Rx topical cream albuterol sulfate 90 mcg/actuation 1 inh INH QID PRN #8 gm 07/03/20 06/26/21 Rx aerosol inhaler (ProAir HFA) mecobalamin (vitamin B12) 1,000 1,000 mcg PO DAILY #30 tab 08/11/20 06/26/21 Rx mcg chewable tablet diclofenac sodium 1 % topical gel 2 g TOP QID #300 g 11/12/20 06/26/21 Rx losartan 100 mg tablet 100 mg PO DAILY #30 tab 12/06/20 06/26/21 Rx gabapentin 600 mg tablet 600 mg PO TID #90 tab 02/04/21 06/26/21 Rx triamcinolone acetonide 0.1 % 1 applic TOP BID PRN #80 g 02/04/21 06/26/21 Rx topical cream triamcinolone acetonide 40 mg/mL 60 mg IM ONCE #1 ml 02/04/21 06/26/21 Rx suspension for injection metformin 500 mg tablet,extended 2,000 mg PO DAILY #120 tab 03/04/21 06/26/21 Rx release 24 hr pantoprazole 40 mg tablet,delayed 40 mg PO DAILY #30 tab 03/04/21 06/26/21 Rx release potassium citrate 10 mEq (1,080 10 meq PO TID #90 tab 03/04/21 06/26/21 Rx mg) tablet,extended release rosuvastatin 5 mg tablet 5 mg PO HS #30 tab 03/11/21 06/26/21 Rx lorazepam 0.5 mg tablet 0.5 mg PO DAILY PRN #14 tab 03/14/21 06/26/21 Rx tramadol 50 mg tablet 50 mg PO Q6H PRN #50 tab 03/14/21 06/26/21 Rx semaglutide 0.5 mg SQ WEEKLY #3 ml 05/02/21 06/26/21 Rx diltiazem HCl 240 mg capsule,24 240 mg PO BID #60 cap 05/13/21 06/26/21 Rx hr,extended release gabapentin 300 mg capsule 300 mg PO TID #90 cap 05/13/21 06/26/21 Rx carvedilol 6.25 mg tablet 6.25 mg PO BID #180 tab 05/30/21 06/26/21 Rx methylprednisolone 4 mg tablets in See Rx Instructions .ROUTE 06/17/21 06/26/21 Rx a dose pack .COMPLEX #21 ea furosemide 40 mg tablet 80 mg PO DAILY #180 tab 06/20/21 06/26/21 Rx Ecotrin Low Strength 325 mg PO DAILY 06/26/21 06/26/21 History celecoxib 200 mg capsule 200 mg PO BID 06/26/21 06/26/21 History clobetasol 1 applic TOPICAL DAILY PRN 06/26/21 06/26/21 History clobetasol 0.05 % topical foam 1 applic TOPICAL HS PRN 06/26/21 06/26/21 History cyanocobalamin (vitamin B-12) 100 mcg PO DAILY 06/26/21 06/26/21 History diphenhydramine HCl 25 mg capsule 25 mg PO Q12H PRN 06/26/21 06/26/21 History fluocinonide 1 applic TOPICAL DAILY PRN 06/26/21 06/26/21 History glucosamine sulf dipot 1 cap PO BID 06/26/21 06/26/21 History chlr,msm,chond 550 mg-C 30 mg-pita 1 mg capsule (Glucosamine Chondroitin) Patient History Medical History Anticardiolipin antibody positive Aortic insufficiency Diabetes mellitus with complication in adult patient Diabetic retinopathy Diverticulosis Fatigue Gastroesophageal reflux disease Gastroparesis Hyperlipidemia Hypertension Lumbar radiculopathy Morbid obesity Nephrolithiasis Osteoarthritis of knee Osteopenia Psoriasis Pulmonary nodules/lesions, multiple Retroperitoneal fibrosis Spinal stenosis Vitiligo Surgical History H/O lumpectomy Left breast 2002 Status post laparoscopic cholecystectomy Status post placement of ureteral stent Right ureteral stent Family History Aunt Breast cancer Grandmother (Maternal) Ovarian cancer Father Myocardial infarction Prostate cancer Denies family history of Coronary heart disease Colorectal cancer Social History Smoking Status: Never smoker Second Hand Exposure: No; Hx Alcohol Use: No Hx Substance Use: No Preferred Language: Turkish Communication Ability: Effective Hearing Ability: Normal 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 Beliefs That Will Affect Care: None marital status: Current Living Situation: Spouse current occupational status: 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 Feels Safe at Home: Yes Childhood Exposure to Second-Hand Smoke: Yes Diet Comment: low fat caffeine: Yes Dental Care, Regularly: Yes Physical Activity Frequency: Does not Exercise Seatbelt Use: always Sunscreen Use: Yes Assistive Devices: None Review of Systems Review of Systems: All systems reviewed & are unremarkable except as noted in HPI & below Physical Exam Constitutional: well developed, well nourished and + obese; no acute distress Neck: normal visual inspection Respiratory: normal respiratory effort; no respiratory distress and no labored breathing Gastrointestinal (Abdomen): Inspection/Auscultation: abdomen normal to inspection Musculoskeletal: Head/Neck/Chest: normocephalic Neurologic: awake Psychiatric: Orientation: alert, oriented x 3 and cooperative Results & Data ([facility]) Vital Signs (Past 12 Hours) Vital Signs Temp Pulse Resp BP Pulse Ox 06/27/21 15:22 36.8 C 60 16 110/72 92 06/27/21 07:47 36.8 C 63 16 116/65 92 PG Care Time/CCT Total # of Minutes Spent Total Time Spent with Patient: Total time spent is greater than 50% in coordination of care (as documented) at patient's floor/unit and/or counseling patient: Coding Level of Care Code 16412 Initial Inpt Care Lvl 2 Diagnoses Sepsis A41.9
--- NOTE | 2021-06-27 17:12 | Hospitalist Progress Note ---
Date of Service June 27, 2021 Assessment & Plan (1) Sepsis: Plan: Pt has a hx of right ureteral stricture managed with a chronic right ureteral stent since 1994. She follows with [facility] ( Dr. Valdez) and typically has stent exchanges every 6mo. Her last stent exchange was Dec 2020 and was scheduled for her next exchange on 06/27/21. The patient presented to hospital with hypotension, acute kidney injury,elevated lactic acid generalized weakness to rule out sepsis Not sure the symptoms are secondary to medication side effect (Keflex) or urosepsis Patient has active urine sediment 4+ bacteria in the urine and numerous white cells but this could be presentation of colonization and chronic stent all of her urine analysis have elevated in the [employer] showed persistent bacteriuria and pyuria Feels significantly better today Continue meropenem, given the most recent documented urine culture performed on 05/02/2021 was positive for ESBL E. coli and Streptococcus group B Discussed with his urologist [facility] recommended evaluated by our urologist, patient was consulted with Dr. Hare who stated that the patient needs a special stent which is not available at this facility, contacted [facility] requesting for the transfer Blood cultures/urine culture so far are negative CT abdomen pelvis - 1. Right ureteral stent in place. No hydronephrosis. Elongated irregular proximal right ureteral calculus that measures 1.8 x 1.1 x 0.4 cm. Several smaller distal right ureteral calculi. 2. Marked right renal atrophy. Possible 1.6 cm lesion arising from the upper pole of the right kidney. Nonemergent renal protocol CT is recommended. 3. Extensive colonic diverticulosis. No evidence for acute diverticulitis. 4. Lower abdominal ventral hernia which contains a loop of small bowel. No resultant bowel obstruction. (2) MAURICIO (acute kidney injury): Plan: Worsening creatinine today currently is 2 Increase IV fluid to 175 (3) Hyponatremia: Plan: Increase IV fluid to 175 BMP tomorrow (4) Maculopapular rash: Plan: Complaining of extreme pruritus, possibly secondary to side effects of Keflex Stated that Benadryl is not helping, double the dose of Benadryl, continue Solu- Medrol (5) Chronic urethral stricture: Plan: Patient was due for ureteral exchange coming week, will discuss it with her urologist (6) Diabetes: Plan: Hold metformin, proceed with glycemic control Accu-Cheks before meals and at (7) HTN (hypertension): Plan: Blood pressure soft systolic blood pressures 100 Hold Lasix Hold losartan For now continue cardiac carvedilol (8) High urine 2,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: Admission and Anticipated Discharge Date Admission Date: June 26, 2021 Subjective Feels significantly better, however still complains of extreme pruritus Review of Systems Review of Systems: General: Complains of extreme pruritus Neck: No tenderness no pain HEENT: No eye discharge no ear discharge Chest: No chest pain, no palpitation GI: Not distended, no nausea no vomiting Extremities: No edema no tenderness, maculopapular rash all over the body complains of pruritus Neurology: No headache no weakness Psychiatric: No depression no anxiety Physical Exam Physical Exam: General: Alert oriented x3, well-nourished Neck: No lymphadenopathy, supple Respiratory: Lungs are clear to auscultation no chest abnormality Cardiovascular: Regular rate and rhythm no murmur no gallop vegetation Abdomen: Soft bowel sounds active Extremities: No edema no tenderness Skin: Hives maculopapular rash Neurology: Alert oriented x3 no acute distress moves all extremities Psychiatry mood and affect appropriate Results & Data Results & Data ([facility]) Vital Signs (Past 12 Hours) Vital Signs Temp Pulse Resp BP Pulse Ox 06/27/21 15:22 36.8 C 60 16 110/72 92 06/27/21 07:47 36.8 C 63 16 116/65 92 PG Care Time/CCT Total # of Minutes Spent Total Time Spent with Patient: Total time spent is greater than 50% in coordination of care (as documented) at patient's floor/unit and/or counseling patient: Coding Level of Care Code 04701 Subseq Hosp Care Lvl 3 Diagnoses Sepsis A41.9 MAURICIO (acute kidney injury) N17.9 Hyponatremia E87.1 Maculopapular rash R21 Chronic urethral stricture Diabetes E11.9 HTN (hypertension) I10 High urine 2,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 R82.998
[2021-06-27] MEDS: diphenhydrAMINE Capsule 25 MG CAP PO PRN ×2 (18:34→22:13)
[2021-06-27] MEDS: ROSUVASTATIN CALCIUM 5 MG TAB PO SCH (20:28)
[2021-06-27] MEDS: CEROVITE ADV FORMULA TAB PO SCH (20:30)
[2021-06-28] MEDS: SODIUM CHLORIDE 0.9% 1000ML 1,000 ML IV SCH ×5 (00:21→21:35)
[2021-06-28] MEDS: MEROPENEM 500 MG in SYRINGE 0 ML IV SCH ×2 (01:51→09:17)
[2021-06-28] MEDS: methylPREDNISolone 40 MG in SYRINGE 0 ML IV SCH ×3 (01:51→14:06)
[2021-06-28] MEDS: FLUOCINONIDE 0.05% CR 15 GM TUBE EXT PRN (01:54)
[2021-06-28] MEDS: LORazepam 0.5 MG TAB PO PRN ×2 (01:56→21:33)
[2021-06-28] MEDS: diphenhydrAMINE Capsule 25 MG CAP PO PRN ×4 (05:16→20:06)
[2021-06-28 08:20] LABS: Hematocrit (blood only) 38.5 % (37-47); Hemoglobin 12.8 g/dL (12.0-16.0); Mean Corpuscular Hemoglobin 29.6 pg (25-34); Mean Corpuscular Hgb Conc 33.2 g/dL (32-36); Mean Corpuscular Volume 89.1 fL (80-100); Mean Platelet Volume 10.6 fL (7.4-10.4); Platelet Count 190 K/uL (130-400); RDW Coefficient of Variation 14.4 % (11.5-14.5); RDW Standard Deviation 47.2 fL (36.4-46.3); Red Blood Count 4.32 M/uL (4.2-5.4); White Blood Count 7.73 K/uL (4.8-10.8)
[2021-06-28] MEDS: INSULIN ASPART PER UNIT SC SCH ×5 (08:21→20:52)
[2021-06-28] MEDS: CYANOCOBALAMIN (B-12) 500 MCG TABLET PO SCH ×2 (08:24→09:08)
[2021-06-28] MEDS: ASPIRIN 325 MG ECTAB PO SCH ×2 (08:24→09:08)
[2021-06-28] MEDS: CEROVITE ADV FORMULA TAB PO SCH ×2 (08:26→09:08)
[2021-06-28] MEDS: POTASSIUM CITRATE 10 MEQ TAB PO SCH ×4 (08:27→20:03)
[2021-06-28] MEDS: ENOXAPARIN INJ 40 MG/0.4 ML SYR SQ SCH (08:30)
[2021-06-28] MEDS: INSULIN GLARGINE SOLOSTAR 100 UNITS/ML 3 ML PEN SC SCH ×2 (08:30→20:53)
[2021-06-28] MEDS: GABAPENTIN 300 MG CAP PO SCH ×3 (08:31→20:04)
[2021-06-28] MEDS: GABAPENTIN 600 MG TAB PO SCH ×3 (08:31→20:03)
[2021-06-28] MEDS: carvediloL 6.25 MG TAB PO SCH ×2 (08:31→20:03)
[2021-06-28] MEDS: dilTIAZem HCL 240 MG CAPCR PO SCH ×2 (08:31→20:04)
[2021-06-28] MEDS: PANTOprazole 40 MG TAB PO SCH (08:32)
[2021-06-28 09:37] LABS: BUN Creatinine Ratio 36.6 (10-20); C Reactive Protein 6.48 mg/dl (0-0.5); Calcium 8.5 mg/dl (8.5-10.1); Creatinine Clr Calc Pharmacy 49.2 ml/min; Est GFR (African American) 43.3 ml/min; Est GFR (Non-African American) 37.3 ml/min; Potassium 4.3 mmol/L (3.5-5.1)
--- NOTE | 2021-06-28 10:07 | Pharmacy Report ---
Pharmacy Glycemic Short Note 2 - Date of Service June 28, 2021 - Glycemic Short BSG Results (Last 24 hours): 06/27/21 06/27/21 06/27/21 11:58 16:34 20:16 Glucose POC Glucose 185 H 117 H 182 H 06/28/21 06/28/21 07:19 07:43 Glucose 158 H POC Glucose 159 H OUTPATIENT ANTIDIABETIC REGIMEN: * semaglutide 0.5mg SQ weekly * A1c 6.3% 06/27/21 ASSESSMENT: 06/28/21: * Glenis received 44 units of SQ insulin yesterday (24 units basal + 20 units bolus) * She remains on high dose IV steroids; solu medrol 40 mg IV q6h * Fasting BSG slightly above goal, will increase basal insulin * Post prandial BSGs fluctuating, will tighten carb coverage * Insulin regimen will require significant reduction if/when IV steroids are discontinued 06/27/21: * Patient admitted for weakness/possible sepsis, currently being treated with meropenem (hx of ESBL?), does have ureteral stent with schedule change in upcoming week, appears to have MAURICIO * Initial BSG elevated, improved with novolog scale, however BSGs still above goal of 140 mg/dL, will add 1x dose of lantus and continue to monitor for changes * Continue novolog PLAN FOR INPATIENT GLYCEMIC CONTROL: * Hold outpatient oral diabetes medications * Basal insulin * Lantus 0-15 units SQ BID (15 units for BSG 140 mg/dL or more) * Bolus insulin * NovoLog per scale ACHS or Q6hrs while NPO * Goal Range: Low 110 mg/dL - High 140 mg/dL * Correction Factor: 20 mg/dL/unit * Nutritional / Prandial insulin per carb ratio of 1 unit per 6 grams CHO consumed
--- NOTE | 2021-06-28 13:52 | Urology Progress Note ---
Date of Service June 28, 2021 Assessment & Plan (1) Acute UTI: Plan: 70yo F with a hx of ureteral stricture managed with chronic right ureteral stent admitted with sepsis, MAURICIO, weakness, hyponatremia. - Urology consulted for stent exchange. - Pt afebrile, Labs reviewed - Wbc normal, Creatinine 1.42. - Urine culture prelim gram negative bacilli; Blood cultures NGTD. - Continues on IV Ertapenem. - Pt due for stent exchange this week, typically follows with [facility] urology. - Pt reports that she requires a specific stent which unfortunately we do not have here. - Discussed with patient. She verbalized understanding and prefers to f/u with her urologist for stent exchange. - Given she is stable and due to the special requirements and equipment needed, recommend she follow-up with [facility] urology for her stent exchange. - Thank you for allowing us to participate in the acute care of Mrs. Wilson. Please reconsult us with additional questions, concerns or changes in patient status. Admission and Anticipated Discharge Date Admission Date: June 26, 2021 Subjective Pt seen at bedside this AM. Awake, resting in bed on arrival. No acute distress. Subjectively feeling well. Denies f/c/n/v. Voiding without issue. Review of Systems Constitutional: as per Subjective / HPI Cardiovascular: no chest pain and no dyspnea Genitourinary: as per Subjective / HPI Integumentary: + pruritus Physical Exam Constitutional: well developed, well nourished and + obese; no acute distress Neck: normal visual inspection Respiratory: normal respiratory effort; no respiratory distress and no labored breathing Gastrointestinal (Abdomen): Inspection/Auscultation: abdomen normal to inspection Musculoskeletal: Head/Neck/Chest: normocephalic Neurologic: awake Psychiatric: Orientation: alert, oriented x 3 and cooperative Results & Data ([facility]) Vital Signs (Past 12 Hours) Vital Signs Temp Pulse Resp BP Pulse Ox 06/28/21 07:14 36.5 C 71 20 154/77 H 95 PG Care Time/CCT Total # of Minutes Spent Total Time Spent with Patient: Total time spent is greater than 50% in coordination of care (as documented) at patient's floor/unit and/or counseling patient: Coding Level of Care Code 94321 Subseq Hosp Care Lvl 2 Diagnoses Acute UTI N39.0
--- NOTE | 2021-06-28 17:14 | Hospitalist Progress Note ---
Date of Service June 28, 2021 Assessment & Plan (1) Sepsis: Plan: Pt has a hx of right ureteral stricture managed with a chronic right ureteral stent since 1994. She follows with [facility] ( Dr. Valdez) and typically has stent exchanges every 6mo. Her last stent exchange was Dec 2020 and was scheduled for her next exchange on 06/27/21. The patient presented to hospital with hypotension, acute kidney injury,elevated lactic acid generalized weakness to rule out sepsis Gram-negative adrián is growing in the urine culture so far blood cultures is negative Patient has active urine sediment 4+ bacteria in the urine and numerous white cells but this could be presentation of colonization and chronic stent all of her urine analysis have elevated in the [employer] showed persistent bacteriuria and pyuria Feels significantly better today Discussed with pharmacist switch meropenem to ertapenem Discussed with his urologist [facility] recommended evaluated by our urologist, patient was consulted with Dr. Hare who stated that the patient needs a special stent which is not available at this facility, contacted [facility] requesting for the transfer, spoke again with Dr. Jones today CT abdomen pelvis - 1. Right ureteral stent in place. No hydronephrosis. Elongated irregular proximal right ureteral calculus that measures 1.8 x 1.1 x 0.4 cm. Several smaller distal right ureteral calculi. 2. Marked right renal atrophy. Possible 1.6 cm lesion arising from the upper pole of the right kidney. Nonemergent renal protocol CT is recommended. 3. Extensive colonic diverticulosis. No evidence for acute diverticulitis. 4. Lower abdominal ventral hernia which contains a loop of small bowel. No resultant bowel obstruction. (2) MAURICIO (acute kidney injury): Plan: Improving Continue to hold Lasix OLIMPIA inhibitor continue IV fluid at rate of 175 (3) Hyponatremia: Plan: Resolved continue with (4) Maculopapular rash: Plan: Complaining of extreme pruritus, possibly secondary to side effects of Keflex Improving. Solu-Medrol, started on Pred (5) Chronic urethral stricture: Plan: Patient was due for ureteral exchange coming week, discussed with our urologist and primary urology (6) Diabetes: Plan: Hold metformin, proceed with glycemic control Accu-Cheks before meals and at (7) HTN (hypertension): Plan: Improving Hold Lasix Hold losartan For now continue cardiac carvedilol (8) High urine 2,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: Admission and Anticipated Discharge Date Admission Date: June 26, 2021 Subjective Pt seen at bedside this AM. Awake, resting in bed on arrival. No acute distress. Subjectively feeling well. Denies f/c/n/v. Voiding without issue. Review of Systems 2 Review of Systems: General: Complains of extreme pruritus Neck: No tenderness no pain HEENT: No eye discharge no ear discharge Chest: No chest pain, no palpitation GI: Not distended, no nausea no vomiting Extremities: No edema no tenderness, maculopapular rash all over the body complains of pruritus Neurology: No headache no weakness Psychiatric: No depression no anxiety Results & Data Results & Data ([facility]) Vital Signs (Past 12 Hours) Vital Signs Temp Pulse Resp BP BP Pulse Ox 06/28/21 15:42 36.7 C 64 18 137/72 91 06/28/21 07:14 36.5 C 71 20 154/77 H 95 PG Care Time/CCT Total # of Minutes Spent Total Time Spent with Patient: Total time spent is greater than 50% in coordination of care (as documented) at patient's floor/unit and/or counseling patient: Coding Level of Care Code 88124 Subseq Hosp Care Lvl 3 Diagnoses Sepsis A41.9 MAURICIO (acute kidney injury) N17.9 Hyponatremia E87.1 Maculopapular rash R21 Chronic urethral stricture Diabetes E11.9 HTN (hypertension) I10 High urine 2,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 R82.998
[2021-06-28] MEDS: ERTAPENEM SODIUM 1,000 MG in SYRINGE 0 ML IV SCH (17:28)
[2021-06-28] MEDS ORDERED: FLUOCINONIDE 0.05% CR 60 GM TUBE EXT PRN (18:31)
[2021-06-28] MEDS: ROSUVASTATIN CALCIUM 5 MG TAB PO SCH (20:07)
[2021-06-28] MEDS: PRESERVISION - NON-FORMULARY PATIENT'S OWN MED PO SCH (21:33)
[2021-06-29] MEDS: diphenhydrAMINE Capsule 25 MG CAP PO PRN ×2 (00:36→15:57)
[2021-06-29] MEDS: SODIUM CHLORIDE 0.9% 1000ML 1,000 ML IV SCH ×2 (05:53→10:33)
[2021-06-29] MEDS: ENOXAPARIN INJ 40 MG/0.4 ML SYR SQ SCH (07:16)
[2021-06-29] MEDS: PANTOprazole 40 MG TAB PO SCH (07:17)
[2021-06-29] MEDS: GABAPENTIN 600 MG TAB PO SCH ×2 (07:18→11:26)
[2021-06-29] MEDS: dilTIAZem HCL 240 MG CAPCR PO SCH (07:18)
[2021-06-29] MEDS: GABAPENTIN 300 MG CAP PO SCH ×2 (07:18→11:27)
[2021-06-29] MEDS: carvediloL 6.25 MG TAB PO SCH (07:18)
[2021-06-29] MEDS: ASPIRIN 325 MG ECTAB PO SCH (07:19)
[2021-06-29] MEDS: CYANOCOBALAMIN (B-12) 500 MCG TABLET PO SCH (07:19)
[2021-06-29] MEDS: POTASSIUM CITRATE 10 MEQ TAB PO SCH ×2 (07:19→11:26)
[2021-06-29] MEDS: PRESERVISION - NON-FORMULARY PATIENT'S OWN MED PO SCH (07:20)
[2021-06-29 07:41] LABS: BUN Creatinine Ratio 30.4 (10-20); Calcium 8.6 mg/dl (8.5-10.1); Creatinine Clr Calc Pharmacy 60.7 ml/min; Est GFR (African American) 55.8 ml/min; Est GFR (Non-African American) 48.2 ml/min
[2021-06-29] MEDS ORDERED: predniSONE 20 MG TAB PO SCH (08:00)
[2021-06-29] MEDS: INSULIN ASPART PER UNIT SC SCH ×2 (08:24→12:30)
[2021-06-29] MEDS: INSULIN GLARGINE SOLOSTAR 100 UNITS/ML 3 ML PEN SC SCH (08:26)
[2021-06-29] MEDS ORDERED: LOSARTAN POTASSIUM 50 MG TAB PO SCH (09:00)
--- NOTE | 2021-06-29 09:00 | Pharmacy Report ---
Pharmacy Glycemic Short Note 2 - Date of Service June 29, 2021 - Glycemic Short BSG Results (Last 24 hours): 06/28/21 06/28/21 06/28/21 07:19 12:01 16:30 Glucose 158 H POC Glucose 133 H 123 H 06/28/21 06/29/21 06/29/21 20:45 06:42 08:00 Glucose 130 H POC Glucose 129 H 128 H OUTPATIENT ANTIDIABETIC REGIMEN: * semaglutide 0.5mg SQ weekly * A1c 6.3% 06/27/21 ASSESSMENT: 06/29/21: * Glenis received 36 units of Sq insulin yesterday with excellent glycemic control (15 units basal + 21 units bolus) * Solu medrol IV converted to prednisone 40 mg PO daily, first dose of prednisone this morning * Will hold off on further basal insulin. If post prandial steroid induced hyperglycemia is noted this evening, may consider addition of once daily NPH. At this time will trial managing with bolus insulin. 06/28/21: * Glenis received 44 units of SQ insulin yesterday (24 units basal + 20 units bolus) * She remains on high dose IV steroids; solu medrol 40 mg IV q6h * Fasting BSG slightly above goal, will increase basal insulin * Post prandial BSGs fluctuating, will tighten carb coverage * Insulin regimen will require significant reduction if/when IV steroids are discontinued 06/27/21: * Patient admitted for weakness/possible sepsis, currently being treated with meropenem (hx of ESBL?), does have ureteral stent with schedule change in upcoming week, appears to have MAURICIO * Initial BSG elevated, improved with novolog scale, however BSGs still above goal of 140 mg/dL, will add 1x dose of lantus and continue to monitor for changes * Continue novolog PLAN FOR INPATIENT GLYCEMIC CONTROL: * Hold outpatient oral diabetes medications * Basal insulin * Hold * Bolus insulin * NovoLog per scale ACHS or Q6hrs while NPO * Goal Range: Low 110 mg/dL - High 140 mg/dL * Correction Factor: 20 mg/dL/unit * Nutritional / Prandial insulin per carb ratio of 1 unit per 6 grams CHO consumed
[2021-06-29] MEDS: ERTAPENEM SODIUM 1,000 MG in SYRINGE 0 ML IV SCH (15:43)
--- NOTE | 2021-06-29 17:03 | Discharge Summary ---
Date of Service June 29, 2021 Admission HPI Per Admitting Provider The patient is a 70-year-old female with a past medical history significant for morbid obesity, history of anticardiolipin antibody positive, diabetes, hypertension, DVT, GERD, hepatitis, thyroid nodule, lung nodule, diabetic retinopathy, spinal stenosis, psoriasis, nephrolithiasis, gastroparesis with right ureteral stricture for which patient has periodic exchange of her right ureteral stent since 1994 who was supposed to have stent change coming week presented to the hospital with generalized weakness maculopapular rash hypertension and evidence of active urine sediment. Apparently patient had some preadmission test done about 2 weeks ago and according to the test she was started on Keflex for urinary tract infection. However, given patient was allergic to Keflex patient has been taking Benadryl and prednisone concurrently. She has been taking it for 7 days. She stopped taking medication last night and since then patient has been experiencing extreme weakness maculopapular rash. Upon admission patient was hypotensive, has evidence of urine tract infection with 4+ bacteria in the urine and significant amount of white cells. Her systolic blood pressure 100s. Patient does not have leukocytosis or shift to the left. Patient is afebrile. However her lactic acid is high at 3.6. Moreover she had evidence of acute kidney injury with a creatinine of 1.88 with a baseline creatinine of 0.8 Principal Diagnosis UTI with E. coli, acute kidney injury, maculopapular rash with extreme pruritus most likely secondary to medication side effect (Keflex), hyponatremia Discharge Exam General: Alert oriented x3, well-nourished Neck: No lymphadenopathy, supple Respiratory: Lungs are clear to auscultation no chest abnormality Cardiovascular: Regular rate and rhythm no murmur no gallop vegetation Abdomen: Soft bowel sounds active Extremities: No edema no tenderness Skin: Hives maculopapular rash Neurology: Alert oriented x3 no acute distress moves all extremities Psychiatry mood and affect appropriate Discharge Data Allergies Allergy/AdvReac Type Severity Reaction Status Date / Time amoxicillin Allergy Intermediate Hives Verified 06/26/21 15:48 fluconazole Allergy Mild HIVES Verified 06/26/21 15:48 cephalexin Allergy Unknown hives, Unverified 06/26/21 15:48 itchy hydrochlorothiazide Allergy Unknown DYAZIDE-KIRSTIN Verified 06/26/21 15:48 H nifedipine Allergy Unknown RASH Verified 06/26/21 15:48 nitrofurantoin Allergy Unknown RASH Verified 06/26/21 15:48 olmesartan Allergy Unknown GI UPSET, Verified 06/26/21 15:48 WEIGHT LOSS Sulfa (Sulfonamide Allergy Unknown RASH Verified 06/26/21 15:48 Antibiotics) triamterene Allergy Unknown DYAZIDE-KIRSTIN Verified 06/26/21 15:48 H Consultations 06/26/21 18:07 ED Decision to Admit Stat 06/26/21 18:19 ED Decision to Admit Stat 06/27/21 14:14 Consult Urology Routine Ordered Studies 06/26/21 16:49 CT abd pelvis wo con Stat Hospital Course (1) Sepsis: The patient presented to hospital with extreme pruritus, maculopapular rash hypotension, acute kidney injury,elevated lactic acid generalized weakness to rule out sepsis on 06/26/21 Patient has active urine sediment 4+ bacteria in the urine and numerous white cells but this could be presentation of colonization and chronic stent all of [facility] showed that she has had bacteriuria with pyuria Pt has a hx of right ureteral stricture managed with a chronic right ureteral stent since 1994. She follows with r urology ( Dr. Valdez) and typically has stent exchanges every 6mo. Her last stent exchange was Dec 2020 and was scheduled for her next exchange on 06/27/21. Given the clinical picture of sepsis patient started on meropenem in the setting of patient having extensive history of allergy to antibiotics Meropenem changed to ertapenem as per pharmacy recommendation Discussed with our urologist Dr. Hare, and her primary urologist Dr. Jones, patient is reluctant to exchange her stent at this facility would like to be done at [facility] Patient feels significantly better after she was on antibiotic and fluid resuscitation, E. coli grew in her urine Unfortunately after 2 days there was no beds that the patient can be transferred to [facility] Discussed with her primary urologist Dr. Valdez given the patient was very adamant that she does not want to change her stent at this facility arrangement was made to exchange her stent on 07/01 outpatient basis by her primary urologist Dr. Valdez. I personally communicated and he confirmed that the patient is scheduled for the procedure on Sunday on 07/01 The patient was discharged on nitrofurantoin, patient has a history of allergy reaction to nitrofurantoin however the only presentation is rash, patient was advised to take Benadryl simultaneously if that does not work to discontinue nitrofurantoin and discuss it with your urology CT abdomen pelvis - 1. Right ureteral stent in place. No hydronephrosis. Elongated irregular proximal right ureteral calculus that measures 1.8 x 1.1 x 0.4 cm. Several smaller distal right ureteral calculi. 2. Marked right renal atrophy. Possible 1.6 cm lesion arising from the upper pole of the right kidney. Nonemergent renal protocol CT is recommended. 3. Extensive colonic diverticulosis. No evidence for acute diverticulitis. 4. Lower abdominal ventral hernia which contains a loop of small bowel. No resultant bowel obstruction. (2) MAURICIO (acute kidney injury): Patient with a creatinine of 1.62 baseline creatinine 0.9, repeat creatinine peaked around 2 She responded very well to IV fluid her creatinine dropped to 1.15 prior to discharge Patient was asked to held Lasix, patient takes Lasix for lower extremity edema, no history of heart failure, patient was advised as she develops lower extremity more to resume taking Lasix now, patient advised to not take NSAIDs, patient able to check a BMP in 1 week with a primary care doctor (3) Hyponatremia: Resolved continue with (4) Maculopapular rash: The patient has a history of allergy to Keflex, Given her recent urine cultures ,per my discussion with her primary urologist ,she was started on Keflex plus prednisone plus bilaterally, she took the medicine for 7 days, she discontinued prednisone and Benadryl prior to this admission and submentalis since she started developing extreme pruritus with maculopapular rash (5) Chronic urethral stricture: Plan as mentioned in (6) Diabetes: Initially metformin was held due to acute injury resume. To the (7) HTN (hypertension): Initially patient was hypotensive with acute kidney kidney due to sepsis and BP meds were held however gradually resumde prior to discharge (8) High urine 2,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: Total Time Total Time Spent Total Time Spent (In Minutes): 46 Discharge Plan Discharge Items Patient Disposition: Home - Home Health Services Reason For Visit: HIVES Discharge Diagnosis: MAURICIO ,UTI with Ecoli , Hyponatremia, maculopapular rash secondary to Keflex with extreme pruritis Condition on Discharge: Fair Activity: Resume your previous activity Lifting: Gradually increase as tolerated Bathing: No limitations Sexual Activity: When tolerated Exercise/Sports: Gradually increase as tolerated Driving/Machine Use: No limitations Non-emergency contact: Urologist Call non-emergency contact if: you have any medication questions and your symptoms worsen Follow-up/Referrals: Mateo Saini MD [Primary Care Provider] - 07/04/21 10:00 am Joel Valdez MD [Outside Practitioners] - 07/01/21 (Office will call patient with a time for appointment.) Diet: Carb Consistent or DM2 and Heart Healthy Addtl Attending Provider Instructions: Please follow with your urologist Dr Mace as you scheduled for ureteral stent exchanged. Dr. Valdez informed me that your scheduled for 07/01/21 . You daughter is also infromed by his medical staff Please hold taking lasix unless you are started experiencing lower extremities edema Please stop taking pain medication except tynelol till you see your primary care doctor in one week please check ypur kidney function ( BMP) in one week with your primary care doctor Pending Studies at Discharge: Yes Studies:: stent exchange Stand-Alone Forms: My Acid [facility], Smoking Cessation Medications and DC Order Prescriptions: New nitrofurantoin macrocrystal 100 mg capsule 100 mg PO QID Qty: 40 RF: 0 Continued cranberry 400 mg capsule 400 mg PO DAILY Qty: 30 RF: 0 glucosamine-chondroitin 900 mg tablet See Rx Instructions PO .COMPLEX Qty: 30 RF: 0 melatonin 10 mg capsule 10 mg PO HS PRN (Reason: sleep) Qty: 30 RF: 0 triamcinolone acetonide 0.1 % cream 1 applic topical UD Qty: 30 RF: 1 diclofenac sodium 1 % gel 2 g TOP QID Qty: 300 RF: 1 losartan 100 mg tablet 100 mg PO DAILY Qty: 30 RF: 5 triamcinolone acetonide 40 mg/mL suspension 60 mg IM ONCE Qty: 1 RF: 0 gabapentin 600 mg tablet 600 mg PO TID Qty: 90 RF: 5 triamcinolone acetonide 0.1 % cream 1 applic TOP BID PRN (Reason: itching) Qty: 80 RF: 1 potassium citrate 10 mEq (1,080 mg) tablet extended release 10 meq PO TID Qty: 90 RF: 5 pantoprazole 40 mg tablet,delayed release (DR/EC) 40 mg PO DAILY Qty: 30 RF: 5 metformin 500 mg tablet extended release 24 hr 2,000 mg PO DAILY Qty: 120 RF: 5 rosuvastatin 5 mg tablet 5 mg PO HS Qty: 30 RF: 5 semaglutide 0.25 mg or 0.5 mg(2 mg/1.5 mL) pen injector 0.5 mg SQ WEEKLY Qty: 3 RF: 3 gabapentin 300 mg capsule 300 mg PO TID Qty: 90 RF: 5 diltiazem HCl 240 mg capsule,extended release 24 hr 240 mg PO BID Qty: 60 RF: 5 carvedilol 6.25 mg tablet 6.25 mg PO BID Qty: 180 RF: 3 methylprednisolone 4 mg tablets,dose pack See Rx Instructions .Route .COMPLEX Qty: 21 RF: 0 multivitamin [Multiple Vitamins] tablet 1 tab PO DAILY RF: 0 omega-3 acid ethyl esters 1 gram capsule 1 cap PO DAILY RF: 0 (DME) lancets [OneTouch Delica Lancets] 33 gauge misc See Dose Instructions .ROUTE .MEDSUPPLY Qty: 100 RF: 0 (DME) Diabetic Shoes Misc See Rx Instructions .ROUTE .MEDSUPPLY Qty: 1 RF: 0 albuterol sulfate [ProAir HFA] 90 mcg/actuation HFA aerosol inhaler 1 inh INH QID PRN (Reason: shortness of breath or wheezing) Qty: 8 RF: 1 lorazepam 0.5 mg tablet 0.5 mg PO DAILY PRN (Reason: anxiety) Qty: 14 RF: 0 mecobalamin (vitamin B12) 1,000 mcg tablet,chewable 1,000 mcg PO DAILY Qty: 30 RF: 0 diphenhydramine HCl 25 mg Capsule 25 mg PO Q12H PRN (Reason: Other) RF: 0 clobetasol 0.05 % foam 1 applic TOPICAL HS PRN (Reason: Skin Irritation) RF: 0 Glucosamine Chondroitin 550-30-1 mg Capsule 1 cap PO BID RF: 0 Ecotrin Low Strength 325 MG 325 mg PO DAILY RF: 0 clobetasol 1 applic topical DAILY PRN (Reason: Other) RF: 0 cyanocobalamin (vitamin B-12) 100 MCG 100 mcg PO DAILY RF: 0 fluocinonide 1 APPLIC 1 applic topical DAILY PRN (Reason: Other) RF: 0 Discontinued furosemide 40 mg tablet 80 mg PO DAILY Qty: 180 RF: 3 tramadol 50 mg tablet 50 mg PO Q6H PRN (Reason: pain) Qty: 50 RF: 3 celecoxib 200 mg capsule 200 mg PO BID RF: 0 Discharge Orders: Discharge Order (Routine); Ordered 06/29/21 Ordered By: Renato Maldonado/Other Patient Handouts: Managing Type 2 Diabetes, Anatomy of the Female Urinary Tract Admission Data Admit Date/Time: 06/26/21 18:08 Attending Provider: Renato Flores Admit Provider: Renato Flores Primary Care Provider: Mateo Saini Other Providers: Troy Delacruz ; Renato Flores ; [email or web address] ; Jaycob Hare Other Interventions: Discharge Summary Assessment (RN) Last Done: 06/29/21 15:48 Coding Level of Care Code D/C DAY MANAGEMENT >30 MINS Diagnoses Sepsis A41.9 MAURICIO (acute kidney injury) N17.9 Hyponatremia E87.1 Maculopapular rash R21 Chronic urethral stricture Diabetes E11.9 HTN (hypertension) I10 High urine 2,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 R82.998
--- NOTE | 2021-07-05 03:24 | Coding Query ---
as a complication of Stent CODING QUERY To promote full compliance with coding requirements relating to patient care, provider participation is requested in all cases of dandy tender uncertainty. Please assist us with the question(s) below: Coding Question(s): Patient admitted with clinical picture of sepsis patient started on meropenem - Discharge summary 06/29/2021 Pt has a hx of right ureteral stricture managed with a chronic right ureteral stent -Discharge summary 06/29/2021 UTI with Ecoli -Discharge summary 06/29/2021 Typically has stent exchanges every 6 month -Discharge summary 06/29/2021 Based on the above clinical indicators , please further clarify if UTI is related to the ureteral stent A) UTI as a Complication of ureteral stent B) UTI not a Complication of ureteral stent C) Unable to determine Physician's Response(s): Thank you Mitch Gibbs Principal Diagnosis: "that condition established after study, to be chiefly responsible for occasioning the admission of the patient to the hospital for care." Co-Existing Principal Diagnosis: "when two or more diagnoses equally meet the criteria for principal diagnosis as determined by the circumstances of admission, diagnostic work up, and/or therapy provided, and the Alphabetic Index, Tabular List, or another coding guideline does not provide sequencing direction, any one of the diagnoses may be sequenced first." "When the physician has documented what appears to be a current diagnosis in the body of the record, but has not included the diagnosis in the final diagnostic statement, the physician should be asked whether the diagnosis should be added." (Source [facility]oding [facility] 2 QTR90. p3-4) AME
== END 2021-06-29 16:22 | disposition home health service (06) | DRG 698 ==
LOC: ED 13:52 → 3W 18:08

== ENCOUNTER 2021-10-17 14:39 | Inpatient (IN) ==
[2021-10-17 15:15] LABS: Basophils # (auto) 0.03 K/uL (0-0.2); Basophils % (auto) 0.4 %; Eosinophils # (auto) 0.21 K/uL (0-0.50); Eosinophils % (auto) 3.1 %; Hematocrit (blood only) 35.5 % (34.1-44.9); Hemoglobin 11.7 g/dl (12.0-16.0); Immature Granulocytes # (auto) 0.01 K/uL (0.00-0.02); Immature Granulocytes % (auto) 0.1 %; Lymphocytes # (auto) 1.23 K/uL (1.2-3.4); Lymphocytes % (auto) 18.4 %; Mean Corpuscular Hemoglobin 29.3 pg (25.0-34.0); Mean Corpuscular Volume 88.8 fL (80.0-100.0); Mean Platelet Volume 9.7 fL (9.4-12.3); Monocytes # (auto) 0.48 K/uL (0.24-0.82); Monocytes % (auto) 7.2 %; Neutrophils # (auto) 4.74 K/uL (1.4-6.5); Neutrophils % (auto) 70.8 %; Platelet Count 235 K/uL (130-400); RDW Coefficient of Variation 14.8 % (11.5-14.5); RDW Standard Deviation 48.1 fL (36.4-46.3)
--- NOTE | 2021-10-17 15:38 | Emergency Department Note ---
History of Present Illness General Chief complaint: Abnormal Labs/Diagnostic Testing Stated complaint: REF BY , ABNORMAL LABS Time Seen by Provider: 10/17/21 15:10 History of Present Illness [id number] female presents to the ED with a chief complaint of worsening kidney function tests also reports some nausea and vomiting. She does have intermittent nausea and vomiting. She did have some today. 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 She also had an outpatient ultrasound today that showed no concerning hydronephrosis and left kidney. There is atrophic and echogenic right kidney with mild hydronephrosis. She has a stent in her right ureter. No additional symptoms at this time. The patient's creatinine today was 3.29 with a BUN of 37. Baseline creatinine is around 2.4. Home Medications Medication Instructions Recorded Confirmed Type lancets 33 gauge ([id number] Deljulian #100 ea 11/11/18 10/10/21 History Lancets) multivitamin (Multiple Vitamins 1 tab PO DAILY 11/11/18 10/17/21 History tablet) omega-3 acid ethyl esters 1 gram 1 cap PO DAILY 11/11/18 10/17/21 History capsule cranberry 400 mg capsule 400 mg PO DAILY #30 caps 07/07/19 10/17/21 Rx melatonin 10 mg capsule 10 mg PO HS PRN sleep #30 caps 07/07/19 10/17/21 Rx Diabetic Shoes #1 ea 08/12/19 10/10/21 Rx triamcinolone acetonide 0.1 % 1 applic topical UD #30 grams 12/23/19 10/17/21 Rx topical cream albuterol sulfate 90 mcg/actuation 1 inh inhalation QID PRN shortness 07/03/20 10/17/21 Rx aerosol inhaler (ProAir HFA) of breath or wheezing #8 grams mecobalamin (vitamin B12) 1,000 1,000 mcg PO DAILY #30 tabs 08/11/20 10/17/21 Rx mcg chewable tablet diclofenac sodium 1 % topical gel 2 g topical QID #300 grams 11/12/20 10/17/21 Rx semaglutide 0.25 mg or 0.5 mg (2 0.5 mg (0.4 mL) subcut WEEKLY 05/02/21 10/17/21 Rx mg/1.5 mL) subcutaneous pen E11.8 #3 mL injector diltiazem HCl 240 mg capsule,24 240 mg PO BID #60 caps 05/13/21 10/17/21 Rx hr,extended release clobetasol 0.05 % topical foam 1 applic topical HS PRN Skin 06/26/21 10/17/21 History Irritation cyanocobalamin (vitamin B-12) 100 mcg PO DAILY 06/26/21 10/17/21 History diphenhydramine HCl 25 mg capsule 25 mg PO Q12H PRN Other 06/26/21 10/17/21 History glucosamine sulf dipot 1 cap PO BID 06/26/21 10/17/21 History chlr,msm,chond 550 mg-C 30 mg-pita 1 mg capsule (Glucosamine Chondroitin) nitrofurantoin macrocrystal 100 mg 100 mg PO BID #14 caps 09/06/21 10/17/21 Rx capsule pantoprazole 40 mg tablet,delayed 40 mg PO DAILY #30 tabs 09/06/21 10/17/21 Rx release rosuvastatin 5 mg tablet 5 mg PO HS #30 tabs 09/06/21 10/17/21 Rx aspirin 325 mg tablet 325 mg PO DAILY #30 tabs 09/12/21 10/17/21 Rx leflunomide 10 mg tablet 10 mg PO DAILY 09/14/21 10/17/21 History potassium citrate 10 mEq (1,080 10 meq PO TID #90 tabs 10/04/21 10/17/21 Rx mg) tablet,extended release carvedilol 12.5 mg tablet 12.5 mg PO BID #60 tabs 10/10/21 10/17/21 Rx gabapentin 300 mg capsule 300 mg PO DAILY #90 caps 10/11/21 10/17/21 Rx nystatin 100,000 unit/mL oral 5 ml buccal QID 10/17/21 10/17/21 History suspension Allergies Allergy/AdvReac Type Severity Reaction Status Date / Time amoxicillin Allergy Intermediate Hives Verified 10/17/21 18:01 fluconazole Allergy Mild HIVES Verified 10/17/21 18:01 cephalexin Allergy Unknown hives, Unverified 10/17/21 18:01 itchy hydrochlorothiazide Allergy Unknown DYAZIDE-KIRSTIN Verified 10/17/21 18:01 H nifedipine Allergy Unknown RASH Verified 10/17/21 18:01 nitrofurantoin Allergy Unknown RASH Verified 10/17/21 18:01 olmesartan Allergy Unknown GI UPSET, Verified 10/17/21 18:01 WEIGHT LOSS Sulfa (Sulfonamide Allergy Unknown RASH Verified 10/17/21 18:01 Antibiotics) triamterene Allergy Unknown DYAZIDE-KIRSTIN Verified 10/17/21 18:01 H Penicillins Allergy Unknown Unverified 10/17/21 18:04 Past Med/Surg History Medical History Acute hyponatremia Acute kidney injury Acute UTI MAURICIO (acute kidney injury) Anticardiolipin antibody positive Diabetes mellitus 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 Feels Safe at Home: Yes Childhood Exposure to Second-Hand Smoke: Yes Diet Comment: low fat caffeine: Yes Dental Care, Regularly: Yes Physical Activity Frequency: Does not Exercise Seatbelt Use: always Sunscreen Use: Yes Assistive Devices: None Review of Systems A total of 10 systems reviewed and were otherwise negative Physical Exam Vital Signs Vital Signs - 24 hr 10/17/21 14:44 10/17/21 17:49 Temperature 36.3 C L Temperature Source Temporal Artery Scan Pulse Rate 62 Pulse Rate [Finger] 63 Pulse Rhythm [Finger] Regular Respiratory Rate 19 20 Respiratory Effort / Characteristics Non-Labored Blood Pressure 200/100 H Blood Pressure [Right Arm] 179/90 H Blood Pressure Mean 133 Blood Pressure Mean [Right Arm] 119 Pulse Oximetry 96 97 Oxygen Delivery Method Room Air Sepsis Recent Fever Within 48 Hours No Sepsis New/Unexplained Change in Mental Status N/A Sepsis Action Taken by Nursing No Action Required CONSTITUTIONAL/VITAL SIGNS: Reviewed / noted above. GENERAL: Non-toxic in appearance. INTEGUMENTARY: Warm, dry, and [place]. HEAD: Normocephalic. EYES: without scleral icterus or trauma. ENT/OROPHARYNX: clear and moist. LYMPHADENOPATHY/NECK: Is supple without lymphadenopathy or meningismus. RESPIRATORY: Clear to auscultation bilaterally. No increased work of breathing. CARDIOVASCULAR: Regular rate and rhythm. GI/ABDOMEN: Soft and nontender. No organomegaly or pulsatile mass. EXTREMITIES: Warm and well perfused. BACK: No CVA tenderness. NEUROLOGICAL: Intact without focal deficits. PSYCHIATRIC: normal affect. MUSCULOSKELETAL: Normally developed with good muscle tone. TRIAGE NURSING DOCUMENTATION REVIEWED. Medical Decision Making Differential Diagnosis Differential includes acute coronary syndrome, myocardial infarction, CVA, TIA, anemia, infection, pneumonia, UTI, pyelonephritis, poor nutrition, dehydration, electrolyte disturbance,hypoglycemia. Medical Records Attestation: I reviewed the patient's medical records. Home Medications Current Medication List: was personally reviewed by me Laboratory Data Attestation: I reviewed the patient's lab results. Result diagrams: 10/17/21 15:07 10/17/21 15:07 Lab Results 10/17/21 10/17/21 10/17/21 Range/Units 15:07 15:07 17:30 WBC 6.70 (4.8-10.8) K/ul RBC 4.00 (3.93-5.22) M/uL Hgb 11.7 L (12.0-16.0) g/dl Hct 35.5 (34.1-44.9) % MCV 88.8 (80.0-100.0) fL MCH 29.3 (25.0-34.0) pg MCHC 33.0 (32.0-36.0) g/dL RDW Std Deviation 48.1 H (36.4-46.3) fL RDW Coeff of Evin 14.8 H (11.5-14.5) % Plt Count 235 (130-400) K/uL MPV 9.7 (9.4-12.3) fL Immature Gran % (Auto) 0.1 % Neut % (Auto) 70.8 % Lymph % (Auto) 18.4 % [place] % (Auto) 7.2 % Eos % (Auto) 3.1 % Baso % (Auto) 0.4 % Neut # (Auto) 4.74 (1.4-6.5) K/uL Lymph # (Auto) 1.23 (1.2-3.4) K/uL [place] # (Auto) 0.48 (0.24-0.82) K/uL Eos # (Auto) 0.21 (0-0.50) K/uL Baso # (Auto) 0.03 (0-0.2) K/uL Immature Gran # (Auto) 0.01 (0.00-0.02) K/uL Sodium 130 L (136-145) mmol/L Potassium 4.6 (3.5-5.1) mmol/L Chloride 96 L (98-107) mmol/L Carbon Dioxide 25 (21-32) mmol/L Anion Gap 9 (3-11) BUN 37 H (6-23) mg/dl Creatinine 3.26 H (0.6-1.2) mg/dl Est Cr Clr Drug Dosing 19.9 ml/min Est GFR ( Amer) 15.8 ml/min Est GFR (Non-Af Amer) 13.7 ml/min BUN/Creatinine Ratio 11.3 (10-20) Glucose 103 H (70-99(Fasting)) mg/dl Calcium 10.0 (8.5-10.1) mg/dl Total Bilirubin 0.4 (0.2-1.0) mg/dl AST 16 (13-39) U/L ALT 12 (7-52) U/L Alkaline Phosphatase 72 (34-104) U/L Total Protein 7.5 (6.0-8.3) gm/dl Albumin 4.4 (3.4-5.0) gm/dl Globulin 3.1 (2.5-4.0) gm/dl Albumin/Globulin Ratio 1.4 (0.9-2) Urine Color Yellow Urine Appearance Clear (Clear) Urine pH 7.5 (4.5-7.5) Ur Specific [place] 1.005 (1.000-1.030) Urine Protein Trace H (Negative) Urine Glucose (UA) Negative (Negative) Urine Ketones Negative (Negative) Urine Blood Negative (Negative) Urine Nitrite Negative (Negative) Urine Bilirubin Negative (Negative) Urine Urobilinogen Negative (Negative) Ur Leukocyte Esterase 2+ H (Negative) Urine WBC (Auto) 10-30 H (0-5) /hpf Urine RBC (Auto) 0-4 (0-4) /hpf U Hyaline Cast (Auto) 0 (0-5) /lpf U Epithel Cells (Auto) 10-20 H (0-5) /lpf Urine Bacteria (Auto) 3+ H (Negative) Imaging Data Radiologist's Impression: Abdomen/Pelvis CT 10/17/21 15:29 CT OF THE ABDOMEN AND PELVIS WITHOUT CONTRAST CLINICAL HISTORY: worsening kidney function tests COMPARISON STUDY: CT of the abdomen September 09, 2021. Bilateral ultrasound performed earlier today. CT of the abdomen and pelvis June 26, 2021. TECHNIQUE: Axial images of the abdomen and pelvis were obtained without IV contrast. Images were reviewed in the axial, sagittal, and coronal planes. Automated exposure control was utilized for the study. A dose lowering technique was utilized adhering to the principles of ALARA. FINDINGS: A 5 mm left lower lobe nodule is unchanged from earlier exams. This is benign given stability. No pneumatosis, free air or portal venous gas is present. Mild to moderate right hydronephrosis is noted. A right ureteral stent is in place. Marked right renal atrophy is noted. Multiple right renal kenrick culi/fragments are noted. The largest is a 1.2 x 0.4 cm proximal ureteral calculus. There is no left hydronephrosis. There are no left-sided urinary calculi. A 1.8 cm lesion arising from the upper pole of the right kidney is noted. This is better depicted on contrast enhanced CT of September 09, 2021. Ca lcifications within the left hepatic lobe are benign. The spleen, adrenal glands and pancreas are unremarkable on this unenhanced exam. Extensive colonic diverticulosis is noted without evidence for acute diverticulitis. A lower abdominal ventral hernia contains a small bowel loop without resultant bowel obstruction. Suspected fibroids are noted. There is no ascites. There is no lymphadenopathy. No acute fracture or suspicious lesion is identified within the visualized skeletal structures. IMPRESSION: 1. Right ureteral stent in place. Mild to moderate right hydronephrosis. Multiple calculi/fragments within the right ureter which measure up to 1.2 x 0.4 cm. 2. Redemonstration of a 1.8 cm lesion arising from the upper pole of the right kidney which is better depicted on contrast enhanced CT of September 09, 2021. 3. Marked right renal atrophy. No left hydronephrosis. No left-sided urinary calculi. 4. Colonic diverticulosis. No evidence for acute diverticulitis. ACT 112: Negative or not required by law. Electronically signed by: Eric Galan M.D. 10/17/2021 4:18 PM MDM Narrative 70-year-old female presents with elevated creatinine and a little nausea and vomiting. Abnormal outpatient kidney function test found by Dr. Mccord and for this patient she was sent to the hospital to be admitted. The patient CBC was unremarkable. Chemistry panel does show a BUN of 37 and creatinine of 3.26. CT scan results noted above. There is mild to moderate hydronephrosis in the area of the right ureteral stent with some calculi in the right ureter. The patient was hydrated with IV fluids. She was given 1 L normal saline. She will be seen by the hospitalist for further evaluation and care. Impression & Plan Acute kidney injury, Acute dehydration, Nausea and vomiting Discharge Plan Visit Data Chief Complaint: Abnormal Labs/Diagnostic Testing Stated Complaint: REF BY , ABNORMAL LABS ED Provider: Guy Ferguson Discharge Problem: Acute kidney injury, Acute dehydration, Nausea and vomiting Patient Disposition: Being Evaluated by Hospitalist Forms Stand Alone Forms: [facility]IBA [employer]are[employer] Prescriptions Prescriptions: No Action cranberry 400 mg capsule 400 mg PO DAILY Qty: 30 0RF Rx Instructions: administer with a meal melatonin 10 mg capsule 10 mg PO HS PRN (Reason: sleep) Qty: 30 0RF triamcinolone acetonide 0.1 % cream 1 applic topical UD Qty: 30 1RF diclofenac sodium 1 % gel 2 g TOP QID Qty: 300 1RF Rx Instructions: use on feet semaglutide 0.25 mg or 0.5 mg(2 mg/1.5 mL) pen injector 0.5 mg SQ WEEKLY Qty: 3 3RF diltiazem HCl 240 mg capsule,extended release 24 hr 240 mg PO BID Qty: 60 5RF pantoprazole 40 mg tablet,delayed release (DR/EC) 40 mg PO DAILY Qty: 30 5RF rosuvastatin 5 mg tablet 5 mg PO HS Qty: 30 5RF nitrofurantoin macrocrystal 100 mg capsule 100 mg PO BID Qty: 14 0RF Rx Instructions: must administer with a meal/food aspirin 325 mg tablet 325 mg PO DAILY Qty: 30 2RF potassium citrate 10 mEq (1,080 mg) tablet extended release 10 meq PO TID Qty: 90 5RF gabapentin 300 mg capsule 300 mg PO DAILY Qty: 90 5RF multivitamin [Multiple Vitamins] tablet 1 tab PO DAILY omega-3 acid ethyl esters 1 gram capsule 1 cap PO DAILY (DME) lancets [OneTouch Delica Lancets] 33 gauge misc See Dose Instructions .ROUTE .MEDSUPPLY Qty: 100 Label Comments: testing four times a day and as needed Rx Instructions: As directed (DME) Diabetic Shoes Misc See Rx Instructions .ROUTE .MEDSUPPLY Qty: 1 0RF Rx Instructions: As directed albuterol sulfate [ProAir HFA] 90 mcg/actuation HFA aerosol inhaler 1 inh INH QID PRN (Reason: shortness of breath or wheezing) Qty: 8 1RF leflunomide 10 mg tablet 10 mg PO DAILY carvedilol 12.5 mg tablet 12.5 mg PO BID Qty: 60 3RF Rx Instructions: must administer with a meal/food mecobalamin (vitamin B12) 1,000 mcg tablet,chewable 1,000 mcg PO DAILY Qty: 30 0RF diphenhydramine HCl 25 mg Capsule 25 mg PO Q12H PRN (Reason: Other) clobetasol 0.05 % foam 1 applic TOPICAL HS PRN (Reason: Skin Irritation) Glucosamine Chondroitin 550-30-1 mg Capsule 1 cap PO BID cyanocobalamin (vitamin B-12) 100 MCG 100 mcg PO DAILY nystatin 100,000 unit/mL suspension 5 ml buccal QID Rx Instructions: SWISH AND EXPECTORATE 5ML ORALLY FOUR TIMES DAILY. Referrals Referrals: Mateo Saini MD [Primary Care Provider] -
[2021-10-17 15:41] LABS: Albumin Globulin Ratio 1.4 (0.9-2); Albumin Level 4.4 gm/dl (3.4-5.0); BUN Creatinine Ratio 11.3 (10-20); Bilirubin,Total 0.4 mg/dl (0.2-1.0); Creatinine Clr Calc Pharmacy 19.9 ml/min; Est GFR (African American) 15.8 ml/min; Est GFR (Non-African American) 13.7 ml/min; Globulin 3.1 gm/dl (2.5-4.0); Potassium 4.6 mmol/L (3.5-5.1); Total Protein 7.5 gm/dl (6.0-8.3)
--- NOTE | 2021-10-17 16:19 | CT Scan Report ---
CT OF THE ABDOMEN AND PELVIS WITHOUT CONTRAST CLINICAL HISTORY: worsening kidney function tests COMPARISON STUDY: CT of the abdomen September 09, 2021. Bilateral ultrasound performed earlier today. CT of the abdomen and pelvis June 26, 2021. TECHNIQUE: Axial images of the abdomen and pelvis were obtained without IV contrast. Images were revi ewed in the axial, sagittal, and coronal planes. Automated exposure control was utilized for the christiana dy. A dose lowering technique was utilized adhering to the principles of ALARA. FINDINGS: A 5 mm left lower lobe nodule is unchanged from earlier exams. This is benign given stabili ty. No pneumatosis, free air or portal venous gas is present. Mild to moderate right hydronephrosis i s noted. A right ureteral stent is in place. Marked right renal atrophy is noted. Multiple right chon l calculi/fragments are noted. The largest is a 1.2 x 0.4 cm proximal ureteral calculus. There is no left hydronephrosis. There are no left-sided urinary calculi. A 1.8 cm lesion arising from the upper pole of the right kidney is noted. This is better depicted on contrast enhanced CT of September 09, 2021. Calcifications within the left hepatic lobe are benign. The spleen, adrenal glands and pancreas are u nremarkable on this unenhanced exam. Extensive colonic diverticulosis is noted without evidence for a cute diverticulitis. A lower abdominal ventral hernia contains a small bowel loop without resultant b owel obstruction. Suspected fibroids are noted. There is no ascites. There is no lymphadenopathy. No acute fracture or suspicious lesion is identified within the visualized skeletal structures. IMPRESSION: 1. Right ureteral stent in place. Mild to moderate right hydronephrosis. Multiple calculi/fragments w ithin the right ureter which measure up to 1.2 x 0.4 cm. 2. Redemonstration of a 1.8 cm lesion arising from the upper pole of the right kidney which is better depicted on contrast enhanced CT of September 09, 2021. 3. Marked right renal atrophy. No left hydronephrosis. No left-sided urinary calculi. 4. Colonic diverticulosis. No evidence for acute diverticulitis. ACT 112: Negative or not required by law. Electronically signed by: Eric Galan M.D. 10/17/2021 4:18 PM
--- NOTE | 2021-10-17 17:37 | History & Physical Report ---
Date of Service October 17, 2021 Assessment & Plan (1) Ureteral stone with hydronephrosis: Plan: - Patient has a history of right ureteral stricture managed with a chronic right ureteral stent since 1994. She follows with [facility] urology ( Dr. Valdez) and has stents exchanged every 6 months, last performed in June of this year. - She has a 1/5 cm right ureteral stone which appears to be stable per previous notes and CT scans, however today she is with worsening renal function and moderate hydronephrosis, which is new from previous scans. - Case was discussed with her urologist at [facility], Dr. Valdez, as there was concern she may require transfer due to concern from Urology here about her being a difficult case to exchange stent and because of our absence of IR for percutaneous nephrostomy tubes if needed. At this time Dr. Valdez advised her stent exchanges are typically very easy, do not require a specific stent and he would recommend first attempting a stent exchange at our facility, however should this prove to be difficult, he would accept her as a transfer via [facility] hospitalist service for possible percutaneous nephrostomy tube. A case has been opened with the transfer center at [facility] for patient to be transferred if necessary. - Consult urology for possible stent exchange tomorrow AM. Keep NPO after midnight - Consult nephrology for worsening kidney function. - Management of MAURICIO and UTI as documented below. (2) Acute kidney injury: Plan: - Cr 3.2, was 2.4 one week ago and 1.4 several weeks prior to that. With associated hyponatremia but potassium normal, mildly hypertensive, not volume overloaded She does report having some diarrhea and N/V a few weeks ago which has since resolved Lasix, Celebrex, Metformin all stopped one week ago and gabapentin was reduced to 300 mg mela after being seen by Nephrology - Suspect secondary to obstruction due to ureteral stone causing moderate hydronephrosis, +/- UTI although suspect that patient's urinary tract is colonized at this point. - Patient has a history of right ureteral stricture managed with a chronic right ureteral stent since 1994. She follows with [facility] urology (Dr. Valdez) and typically has stent exchanges every 6 months, last exchange in June. - Will start on LRs at 125 cc/hr and treat UTI with Rocephin while awaiting urine culture. - Avoid nephrotoxins and renally dose medications as able. (3) UTI (urinary tract infection): Plan: - Asymptomatic, with evidence of infection on UA with WBCs, bacteria, and leuk esterase, but without leukocytosis. - Urine cx pending; previous cultures have grown E coli, sensitive to Rocephin. Patient has several antibiotic allergies, (rash/hives, no history of anaphylactic shock) but has done well with ampicillin and amoxicillin with benadryl PRN for rash/hives. - Will start on Rocephin for now and follow cultures. - Benadryl daily to prevent hives from possible antibiotic reaction. 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 (5) Renal mass: Plan: - 1.9 cm right renal mass which has been stable in size for several months, with an atrophic kidney measuring 8.7 x 2.8 x 3.[address] Jami Williamson (urology-oncology) this month for evaluation. - Current plan is to monitor for now, with plans for a renal scan in the upcoming months to determine split function, as these results would impact recommendations for possible surgical intervention. (6) Right renal atrophy: Plan: - Measures 8.7 x 2.8 x 3.7 cm, patient reports a split function 10+ years ago revealed 25% function. (7) Diabetes: Plan: - Recently taken off metformin due to worsening renal function, receives Ozempic injections weekly, last received yesterday 10/16. - Hold Ozempic while inpatient, place on [facility] with Accuchecks ACHS. - Continue gabapentin 300 mg daily for neuropathy. (8) Moderate to severe aortic stenosis: Plan: - Seen by cardiology last month based on echo from July which showed moderate- severe with EF 50-55% - It is felt that her aortic stenosis is not critical or lifestyle limiting at this point, reported dyspnea at that time may be more closely related to deconditioning from her recent hospitalization. (9) Hypertension: Plan: - Continue carvedilol 12.5 mg BID, diltiazem 240 mg daily. - Per PCP note, her BP has been high at several appointments. Her carvedilol was increased from 6.25 mg BID to 12.5 mg BID one week ago. (10) Gastroesophageal reflux disease: Plan: - Continue Protonix 40 mg daily. (11) Gastroparesis: Plan: - History of, no current complaints of nausea, vomting, diarrhea. Metformin recently d/c'd given worsening renal function. (12) Psoriasis: Plan: - Continue clobetasol cream prn, triamcinolone cream prn. Plan - Admit to med/tele. - SCDs for VTE ppx. - Full Code. 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 She has had worsening renal function over the past month labs have been monitored closely. One week ago, her creatinine was 2.4 with hypercalcemia but without significant proteinuria, hypoalbuminemia, or lower extremity edema. On today's labs, creatinine is 3.2 and an outpatient renal ultrasound showed atrophic right kidney with mild hydronephrosis. CT abd/pel here shows mild- moerate hydronephrosis which is worse from previous CT 08/2021. Kidney function is worsening despite of stopping Lasix, Celebrex, and metformin last week. Based on this, she was advises to present to ED for further evaluation. Besides ongoing fatigue for the past 2 months, patient is without symptoms, no fever/chills, weakness, abdominal pain, dysuria, hematuria, increased urinary frequency or retention. A CT A/P here shows multiple calculi and fragments within the right ureter which measure up to 1.2 x 0.4 cm, with a right ureteral stent in place and mild to moderate right hydronephrosis. Right renal mass is redemonstrated, stable in size. Again, marked right renal atrophy is noted without any left hydronephrosis or urinary calculi. UA is with 10-20 epithelial cells, but with 3+ bacteria, 1030 WBCs, 2+ leuk esterase. She is hypertensive on admission 179/90, otherwise vital signs within normal limits, stable. She is afebrile. Allergies Allergy/AdvReac Type Severity Reaction Status Date / Time amoxicillin Allergy Intermediate Hives Verified 10/17/21 18:01 fluconazole Allergy Mild HIVES Verified 10/17/21 18:01 cephalexin Allergy Unknown hives, Unverified 10/17/21 18:01 itchy hydrochlorothiazide Allergy Unknown DYAZIDE-KIRSTIN Verified 10/17/21 18:01 H nifedipine Allergy Unknown RASH Verified 10/17/21 18:01 nitrofurantoin Allergy Unknown RASH Verified 10/17/21 18:01 olmesartan Allergy Unknown GI UPSET, Verified 10/17/21 18:01 WEIGHT LOSS Sulfa (Sulfonamide Allergy Unknown RASH Verified 10/17/21 18:01 Antibiotics) triamterene Allergy Unknown DYAZIDE-KIRSTIN Verified 10/17/21 18:01 H Penicillins Allergy Unknown Unverified 10/17/21 18:04 Home Medications Medication Instructions Recorded Confirmed Type lancets 33 gauge (OneTouch Delica #100 ea 11/11/18 10/10/21 History Lancets) multivitamin (Multiple Vitamins 1 tab PO DAILY 11/11/18 10/17/21 History tablet) omega-3 acid ethyl esters 1 gram 1 cap PO DAILY 11/11/18 10/17/21 History capsule cranberry 400 mg capsule 400 mg PO DAILY #30 caps 07/07/19 10/17/21 Rx melatonin 10 mg capsule 10 mg PO HS PRN sleep #30 caps 07/07/19 10/17/21 Rx Diabetic Shoes #1 ea 08/12/19 10/10/21 Rx triamcinolone acetonide 0.1 % 1 applic topical UD #30 grams 12/23/19 10/17/21 Rx topical cream albuterol sulfate 90 mcg/actuation 1 inh inhalation QID PRN shortness 07/03/20 10/17/21 Rx aerosol inhaler (ProAir HFA) of breath or wheezing #8 grams mecobalamin (vitamin B12) 1,000 1,000 mcg PO DAILY #30 tabs 08/11/20 10/17/21 Rx mcg chewable tablet diclofenac sodium 1 % topical gel 2 g topical QID #300 grams 11/12/20 10/17/21 Rx semaglutide 0.25 mg or 0.5 mg (2 0.5 mg (0.4 mL) subcut WEEKLY 05/02/21 10/17/21 Rx mg/1.5 mL) subcutaneous pen E11.8 #3 mL injector diltiazem HCl 240 mg capsule,24 240 mg PO BID #60 caps 05/13/21 10/17/21 Rx hr,extended release clobetasol 0.05 % topical foam 1 applic topical HS PRN Skin 06/26/21 10/17/21 History Irritation cyanocobalamin (vitamin B-12) 100 mcg PO DAILY 06/26/21 10/17/21 History diphenhydramine HCl 25 mg capsule 25 mg PO Q12H PRN Other 06/26/21 10/17/21 H istory glucosamine sulf dipot 1 cap PO BID 06/26/21 10/17/21 History chlr,msm,chond 550 mg-C 30 mg-pita 1 mg capsule (Glucosamine Chondroitin) nitrofurantoin macrocrystal 100 mg 100 mg PO BID #14 caps 09/06/21 10/17/21 Rx capsule pantoprazole 40 mg tablet,delayed 40 mg PO DAILY #30 tabs 09/06/21 10/17/21 Rx release rosuvastatin 5 mg tablet 5 mg PO HS #30 tabs 09/06/21 10/17/21 Rx aspirin 325 mg tablet 325 mg PO DAILY #30 tabs 09/12/21 10/17/21 Rx leflunomide 10 mg tablet 10 mg PO DAILY 09/14/21 10/17/21 History potassium citrate 10 mEq (1,080 10 meq PO TID #90 tabs 10/04/21 10/17/21 Rx mg) tablet,extended release carvedilol 12.5 mg tablet 12.5 mg PO BID #60 tabs 10/10/21 10/17/21 Rx gabapentin 300 mg capsule 300 mg PO DAILY #90 caps 10/11/21 10/17/21 Rx nystatin 100,000 unit/mL oral 5 ml buccal QID 10/17/21 10/17/21 History suspension Past Med/Surg History Medical History Acute hyponatremia Acute kidney injury Acute UTI MAURICIO (acute kidney injury) Anticardiolipin antibody positive Diabetes mellitus 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 Other Information That Helps Us Care for You: No Feels Safe at Home: Yes Safety Concerns: Feels Safe At This Time Childhood Exposure to Second-Hand Smoke: Yes Diet Comment: low fat caffeine: Yes Dental Care, Regularly: Yes Physical Activity Frequency: Does not Exercise Seatbelt Use: always Sunscreen Use: Yes Assistive Devices: Glasses Review of Systems Review of Systems: Constitutional: No fever/chills, weakness, fatigue, myalgias, anorexia, night sweats Eyes: No diplopia, no worsening or blurred vision ENT: normal hearing, no trouble swallowing Respiratory: No cough, sputum, dyspnea at rest or on exertion Cardiovascular: No chest pain, tightness or palpitations Abdomen: No pain, nausea, vomiting, diarrhea or constipation : Denies dysuria, hematuria, increased urgency/frequency, urinary retention Musculoskeletal: No joint pain, calf pain, swelling Neurologic: No weakness, numbness/tingling, or balance problems Psychiatric: No anxiety or depression Skin: No rash or itch Physical Exam Physical Exam: General: awake, alert, no apparent distress Head: Normocephalic, atraumatic ENT: PERRL, EOMI, no pharyngeal exudate, mucous membranes moist Chest: Clear to auscultation, on room air, no adventitious breath sounds Cardiac: Regular rate and rhythm, systolic murmur present, no JVD, normal peripheral pulses, good capillary refill Abdominal: NABS x 4 quadrants, soft, nontender to palpation, no rebound, guarding or tenderness Extremities: Normal inspection, no peripheral edema or erythema, calfs nontender to palpation Psych: Normal mood and affect Neuro: AAO x 3, strength intact bilaterally and rated 5/5, no motor deficits, speech is clear, no peripheral sensory deficits Skin: no rash or erythema Results & Data Results & Data ([facility]) Vital Signs (Past 12 Hours) Vital Signs Temp Pulse Resp BP Pulse Ox O2 Del Method 10/17/21 14:44 36.3 C L 62 19 200/100 H 96 Room Air Laboratory Results Abnormal lab results 10/17/21 10/17/21 10/17/21 Range/Units 15:07 15:07 17:30 Hgb 11.7 L (12.0-16.0) g/dl RDW Std Deviation 48.1 H (36.4-46.3) fL RDW Coeff of Evin 14.8 H (11.5-14.5) % Sodium 130 L (136-145) mmol/L Chloride 96 L (98-107) mmol/L BUN 37 H (6-23) mg/dl Creatinine 3.26 H (0.6-1.2) mg/dl Glucose 103 H (70-99(Fasting)) mg/dl Urine Protein Trace H (Negative) Ur Leukocyte Esterase 2+ H (Negative) Urine WBC (Auto) 10-30 H (0-5) /hpf U Epithel Cells (Auto) 10-20 H (0-5) /lpf Urine Bacteria (Auto) 3+ H (Negative) Diagnostic Findings Abdomen/Pelvis CT 10/17/21 15:29 CT OF THE ABDOMEN AND PELVIS WITHOUT CONTRAST CLINICAL HISTORY: worsening kidney function tests COMPARISON STUDY: CT of the abdomen September 09, 2021. Bilateral ultrasound performed earlier today. CT of the abdomen and pelvis June 26, 2021. TECHNIQUE: Axial images of the abdomen and pelvis were obtained without IV contrast. Images were reviewed in the axial, sagittal, and coronal planes. Automated exposure control was utilized for the study. A dose lowering technique was utilized adhering to the principles of ALARA. FINDINGS: A 5 mm left lower lobe nodule is unchanged from earlier exams. This is benign given stability. No pneumatosis, free air or portal venous gas is present. Mild to moderate right hydronephrosis is noted. A right ureteral stent is in place. Marked right renal atrophy is noted. Multiple right renal calculi/fragments are noted. The largest is a 1.2 x 0.4 cm proximal ureteral calculus. There is no left hydronephrosis. There are no left-sided urinary calculi. A 1.8 cm lesion arising from the upper pole of the right kidney is noted. This is better depicted on contrast enhanced CT of September 09, 2021. Calcifications within the left hepatic lobe are benign. The spleen, adrenal glands and pancreas are unremarkable on this unenhanced exam. Extensive colonic diverticulosis is noted without evidence for acute diverticulitis. A lower abdominal ventral hernia contains a small bowel loop without resultant bowel obstruction. Suspected fibroids are noted. There is no ascites. There is no lymphadenopathy. No acute fracture or suspicious lesion is identified within the visualized skeletal structures. IMPRESSION: 1. Right ureteral stent in place. Mild to moderate right hydronephrosis. Multiple calculi/fragments within the right ureter which measure up to 1.2 x 0.4 cm. 2. Redemonstration of a 1.8 cm lesion arising from the upper pole of the right kidney which is better depicted on contrast enhanced CT of September 09, 2021. 3. Marked right renal atrophy. No left hydronephrosis. No left-sided urinary calculi. 4. Colonic diverticulosis. No evidence for acute diverticulitis. ACT 112: Negative or not required by law. Electronically signed by: Eric Galan M.D. 10/17/2021 4:18 PM Code Status & VTE Plan Code Status Full Code. Supervising Physician Co-Signing Physician Notes PA Supervision Note: I personally saw and examined the patient. I verified all cheema points and agree with AMRIT Cameron with the following exceptions and/or additions: S-Pt here with worsening renal function on labs however has not had any symptoms. Is making plenty of urine. Is a bit hypertensive and Coreg recently increased. She appropriately stopped her lasix, metformin, NSAIDs last week as instructed by Nephrology. SH ehas been eating and drinkign but did have N/V/D a few weeks back. With development of mild-mod hydronephrosis on CT and known chronic right ureteral large stone in side her stent on imaging O- Vitals reviewed Gen: [AAOx3, NAD, obese] HEENT: [anicteric sclerae, EOMI] CV: [RRR 3/6 XAVIER at RUSB nl S1S2] Pulm: [CTAB no wcr] Abd: [+BS soft NT ND no masses or hernias] Ext: [no edema, 2+ DP pulses] Skin: [no rashes, warm/dry] Neuro: [full strength throughout] Labs, Rads, and ECG reviewed A/P-70 yo female here with MAURICIO on CKD stage 3, ureterolithiasis with right sided hydronephrosis, UTI treatment plan outlined as above I discussed her care with both Dr. Hare of Urology here as well as with Dr. Joel Valdez of Urology at [facility] Plan to possibly attempt stent exchange here if renal function not improving with fluids and treatment of UTI Transfer to [facility] if stent exchange here not successful in the event she would need perc nephrostomy tube if renal function not improving Given that right kidney is somehwat atrophic to begin with, it is unclear if obstruction of the right kidney is causing all of her renal injury APprecaite Nephrology consultation as well PG Care Time/CCT Total # of Minutes Spent Total Time Spent with Patient: Total time spent is greater than 50% in coordination of care (as documented) at patient's floor/unit and/or counseling patient: Coding Level of Care Code 81758 Initial Inpt Care Lvl 3 Diagnoses Ureteral stone with hydronephrosis N13.2 Acute kidney injury N17.9 UTI (urinary tract infection) N39.0 Retroperitoneal fibrosis N13.5 Renal mass N28.89 Right renal atrophy N26.1 Diabetes E11.9 Moderate to severe aortic stenosis I35.0 Hypertension I10 Gastroesophageal reflux disease K21.9 Gastroparesis K31.84 Psoriasis L40.9
[2021-10-17 17:44] LABS: Appearance Urine Clear (Clear); Bacteria Urine Automated 3+ (Negative); Bilirubin Urine Negative (Negative); Blood Urine Negative (Negative); Cast Urine Automated 0 /lpf (0-5); Color Urine Yellow; Glucose Urine UA Negative (Negative); Ketones Urine Negative (Negative); Leukocyte Esterase Urine 2+ (Negative); Nitrite Urine Negative (Negative); RBC Urine Automated 0-4 /hpf (0-4); Specific Gravity Urine 1.005 (1.000-1.030); Urobilinogen Urine Negative (Negative); pH Urine 7.5 (4.5-7.5)
[2021-10-17 17:45] LABS: Protein Urine Trace (Negative)
[2021-10-17] MEDS ORDERED: cefTRIAXone SODIUM 2,000 MG/70 ML BAG IV STA (20:00)
[2021-10-17] MEDS: LACTATED RINGER'S 1,000 ML IV SCH (20:00)
[2021-10-17] MEDS ORDERED: GLUCOSE 10 TAB/TUBE PO PRN (20:34)
[2021-10-17] MEDS ORDERED: ACETAMINOPHEN 325 MG TAB PO PRN (20:34)
[2021-10-17] MEDS ORDERED: CARBOHYDRATES FOR HYPOGLYCEMIA PO PRN (20:34)
[2021-10-17] MEDS ORDERED: DEXTROSE 50% 50 ML SYRINGE IV PRN (20:34)
[2021-10-17] MEDS ORDERED: diphenhydrAMINE Capsule 25 MG CAP PO PRN (20:34)
[2021-10-17] MEDS ORDERED: ALBUTEROL HFA 8 GM INHALER INH PRN (20:34)
[2021-10-17] MEDS ORDERED: GLUCOSE 40% GEL 15 GM TUBE PO PRN (20:34)
[2021-10-17] MEDS ORDERED: GLUCAGON FOR INJ 1 MG VIAL SQ PRN (20:34)
[2021-10-17] MEDS ORDERED: NON-FORMULARY MEDICATION (Glucos Sul 2kcl-Msm-Chond-C-Mn [Glucosamine Chondroitin] 550-30- PO SCH (21:00)
[2021-10-17] MEDS: dilTIAZem HCL 240 MG CAPCR PO SCH (21:46)
[2021-10-17] MEDS: carvediloL 12.5 MG TAB PO SCH (21:46)
[2021-10-17] MEDS: diphenhydrAMINE 50 MG/ML VIAL IV SCH (21:47)
[2021-10-17] MEDS: ROSUVASTATIN CALCIUM 5 MG TAB PO SCH (21:47)
[2021-10-17] MEDS: DICLOFENAC SOD 1% GEL 100 GM TUBE EXT SCH (21:48)
[2021-10-17] MEDS ORDERED: CALCIUM CARBONATE 500 MG CHEWABLE TAB PO PRN (21:58)
[2021-10-17] MEDS: cefTRIAXone SODIUM 2,000 MG in DEXTROSE 5% 50 ML IV SCH (22:11)
[2021-10-17] MEDS: INSULIN ASPART PER UNIT SC SCH (22:17)
--- NOTE | 2021-10-17 23:01 | Urology Consultation ---
Date of Consultation October 17, 2021 Assessment & Plan (1) UTI (urinary tract infection): Patient has been admitted by the hospitalist service. We recommend proceeding as follows: Agree with hydration measures Agree with treatment of urinary tract infection The hospitalist have discussed with the patient's urologist at [facility], Dr. Jones, and he notes that if patient requires stent exchange this can be attempted at our facility as opposed to transfer We will make the patient n.p.o. after midnight and reassess her in the morning to determine if this procedure will be required (2) Ureteral stone with hydronephrosis: (3) Right renal atrophy: (4) Renal mass: History of Present Illness Reason for Consultation: Acute on chronic kidney disease with a chronic right ureteral stent Attending Physician: Maryse Lemons MD History of Present Illness This is 70-year-old female who has a known history of retroperitoneal fibrosis and has a chronic indwelling right ureteral stent. She follows with urology at [facility] in [place], [place]. The patient notes that she has frequent right ureteral stent exchanges every 5 to 6 months with her most recent stent exchange being in June of this year. Patient says that she was referred to the hospital by her brush or broom cutter. She was referred to nephrology by her primary care physician as it was noted on routine blood work that her creatinine was rising. Her brush or broom cutter did order a renal ultrasound which was performed today that showed an atrophic right kidney with mild hydronephrosis. Due to her noted rising creatinine she was referred to the hospital for further evaluation. The patient notes that she has not had any seizure activity. She denies any headache. She does report that she has had some intermittent nausea and vomiting for the past several weeks. She denies any worsening lower extremity edema. She denies any abdominal pain. The patient notes that she has no dysuria. She also notes that when she voids she can completely empty her bladder. She denies urinary frequency. Since arrival to the hospital the patient has had labs and imaging which independent reviewed. A CT scan of the abdomen and pelvis showed the patient had a right ureteral stent in place with mild to moderate right hydronephrosis. When compared to patient's previous CT scans this level of hydronephrosis did appear to be slightly worse. Patient was noted to have multiple calculi within the right ureter which measured up to 1.2 x 0.4 cm. Patient was also noted to have a 1.8 cm lesion arising from the upper pole of the right kidney was noted on a previous scan in August of this year. The right kidney was noted to be atrophic. The left kidney demonstrated no hydronephrosis or kidney stones. Labs included a CBC were white blood cell count was 6.7 in the normal range. Hemoglobin and hematocrit are 11.7 and 35.5. Platelet count was normal. Chemistry profile showed sodium was 130 with a normal potassium. BUN and creatinine were 37 and 3.2. When compared to previous creatinine levels this creatinine level was worse as her creatinine was 0.9 in June of this year and 1.47 in August of this year. Urinalysis did show 2+ leukocyte esterase and 10-30 white blood cells per high-power field, along with 3+ bacteria. A COVID test was negative. At the time of my interview the patient was in no distress. Allergies Allergy/AdvReac Type Severity Reaction Status Date / Time amoxicillin Allergy Intermediate Hives Verified 10/17/21 18:01 fluconazole Allergy Mild HIVES Verified 10/17/21 18:01 cephalexin Allergy Unknown hives, Unverified 10/17/21 18:01 itchy hydrochlorothiazide Allergy Unknown DYAZIDE-KIRSTIN Verified 10/17/21 18:01 H nifedipine Allergy Unknown RASH Verified 10/17/21 18:01 nitrofurantoin Allergy Unknown RASH Verified 10/17/21 18:01 olmesartan Allergy Unknown GI UPSET, Verified 10/17/21 18:01 WEIGHT LOSS Sulfa (Sulfonamide Allergy Unknown RASH Verified 10/17/21 18:01 Antibiotics) triamterene Allergy Unknown DYAZIDE-KIRSTIN Verified 10/17/21 18:01 H Penicillins Allergy Unknown Unverified 10/17/21 18:04 Home Medications Medication Instructions Recorded Confirmed Type lancets 33 gauge (OneTouch Delica #100 ea 11/11/18 10/10/21 History Lancets) multivitamin (Multiple Vitamins 1 tab PO DAILY 11/11/18 10/17/21 History tablet) omega-3 acid ethyl esters 1 gram 1 cap PO DAILY 11/11/18 10/17/21 History capsule cranberry 400 mg capsule 400 mg PO DAILY #30 caps 07/07/19 10/17/21 Rx melatonin 10 mg capsule 10 mg PO HS PRN sleep #30 caps 07/07/19 10/17/21 Rx Diabetic Shoes #1 ea 08/12/19 10/10/21 Rx triamcinolone acetonide 0.1 % 1 applic topical UD #30 grams 12/23/19 10/17/21 Rx topical cream albuterol sulfate 90 mcg/actuation 1 inh inhalation QID PRN shortness 07/03/20 10/17/21 Rx aerosol inhaler (ProAir HFA) of breath or wheezing #8 grams mecobalamin (vitamin B12) 1,000 1,000 mcg PO DAILY #30 tabs 08/11/20 10/17/21 Rx mcg chewable tablet diclofenac sodium 1 % topical gel 2 g topical QID #300 grams 11/12/20 10/17/21 Rx semaglutide 0.25 mg or 0.5 mg (2 0.5 mg (0.4 mL) subcut WEEKLY 05/02/21 10/17/21 Rx mg/1.5 mL) subcutaneous pen E11.8 #3 mL injector diltiazem HCl 240 mg capsule,24 240 mg PO BID #60 caps 05/13/21 10/17/21 Rx hr,extended release clobetasol 0.05 % topical foam 1 applic topical HS PRN Skin 06/26/21 10/17/21 History Irritation cyanocobalamin (vitamin B-12) 100 mcg PO DAILY 06/26/21 10/17/21 History diphenhydramine HCl 25 mg capsule 25 mg PO Q12H PRN Other 06/26/21 10/17/21 History glucosamine sulf dipot 1 cap PO BID 06/26/21 10/17/21 History chlr,msm,chond 550 mg-C 30 mg-pita 1 mg capsule (Glucosamine Chondroitin) nitrofurantoin macrocrystal 100 mg 100 mg PO BID #14 caps 09/06/21 10/17/21 Rx capsule pantoprazole 40 mg tablet,delayed 40 mg PO DAILY #30 tabs 09/06/21 10/17/21 Rx release rosuvastatin 5 mg tablet 5 mg PO HS #30 tabs 09/06/21 10/17/21 Rx aspirin 325 mg tablet 325 mg PO DAILY #30 tabs 09/12/21 10/17/21 Rx leflunomide 10 mg tablet 10 mg PO DAILY 09/14/21 10/17/21 History potassium citrate 10 mEq (1,080 10 meq PO TID #90 tabs 10/04/21 10/17/21 Rx mg) tablet,extended release carvedilol 12.5 mg tablet 12.5 mg PO BID #60 tabs 10/10/21 10/17/21 Rx gabapentin 300 mg capsule 300 mg PO DAILY #90 caps 10/11/21 10/17/21 Rx nystatin 100,000 unit/mL oral 5 ml buccal QID 10/17/21 10/17/21 History suspension Patient History Medical History Acute hyponatremia Acute kidney injury Acute UTI MAURICIO (acute kidney injury) Anticardiolipin antibody positive Diabetes mellitus 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 Other Information That Helps Us Care for You: No Feels Safe at Home: Yes Safety Concerns: Feels Safe At This Time Childhood Exposure to Second-Hand Smoke: Yes Diet Comment: low fat caffeine: Yes Dental Care, Regularly: Yes Physical Activity Frequency: Does not Exercise Seatbelt Use: always Sunscreen Use: Yes Assistive Devices: Glasses Review of Systems Constitutional: no fever and no chills Eyes: no diplopia Ear, Nose, Mouth, Throat: no ear pain Respiratory: no cough and no dyspnea Cardiovascular: no chest pain Gastrointestinal: + nausea; no abdominal pain and no vomiting Genitourinary: as per Subjective / HPI Musculoskeletal: no back pain Integumentary: no rash Neurologic: no localized weakness Physical Exam Constitutional: WD/WN, vitals as above Eyes: no conjunctival abnormality ENMT: Ears: no hearing impairment and no external ear abnormality Mouth: no oropharynx abnormality Neck: trachea midline Respiratory: normal respiratory effort; no respiratory distress and no labored breathing Cardiovascular: Rate/Rhythm: regular rate and regular rhythm Gastrointestinal (Abdomen): Abdomen is soft, nonrigid, nondistended. There is no pain with palpation Musculoskeletal: No calf tenderness Skin: no rashes Neurologic: moves all extremities Psychiatric: A+Ox3, euthymic affect Genitourinary: no CVA tenderness Results & Data ([facility]) Vital Signs (Past 12 Hours) Vital Signs Temp Pulse Pulse Resp BP BP Pulse Ox 10/17/21 20:15 36.5 C 70 20 186/91 H 96 10/17/21 20:01 101 H 20 173/98 H 99 10/17/21 17:49 63 20 179/90 H 97 10/17/21 14:44 36.3 C L 62 19 200/100 H 96 O2 Del Method 10/17/21 20:15 Room Air 10/17/21 20:01 Room Air 10/17/21 17:49 10/17/21 14:44 Room Air PG Care Time/CCT Total # of Minutes Spent Total Time Spent with Patient: Total time spent is greater than 50% in coordination of care (as documented) at patient's floor/unit and/or counseling patient: Coding Level of Care Code 34530 Inpt Consult Level 5 Diagnoses UTI (urinary tract infection) N39.0 Ureteral stone with hydronephrosis N13.2 Right renal atrophy N26.1 Renal mass N28.89
[2021-10-17] MEDS ORDERED: LORazepam 0.5 MG in SYRINGE 0.25 ML IV STA (23:42)
[2021-10-18] MEDS: LACTATED RINGER'S 1,000 ML IV SCH ×3 (04:02→20:08)
[2021-10-18 06:16] LABS: Basophils # (auto) 0.04 K/uL (0-0.2); Basophils % (auto) 0.6 %; Eosinophils # (auto) 0.17 K/uL (0-0.50); Eosinophils % (auto) 2.7 %; Hematocrit (blood only) 33.2 % (34.1-44.9); Hemoglobin 10.7 g/dl (12.0-16.0); Immature Granulocytes # (auto) 0.02 K/uL (0.00-0.02); Immature Granulocytes % (auto) 0.3 %; Lymphocytes # (auto) 1.18 K/uL (1.2-3.4); Lymphocytes % (auto) 18.5 %; Mean Corpuscular Hemoglobin 28.9 pg (25.0-34.0); Mean Corpuscular Hgb Conc 32.2 g/dL (32.0-36.0); Mean Corpuscular Volume 89.7 fL (80.0-100.0); Mean Platelet Volume 10.1 fL (9.4-12.3); Monocytes # (auto) 0.53 K/uL (0.24-0.82); Monocytes % (auto) 8.3 %; Neutrophils # (auto) 4.43 K/uL (1.4-6.5); Neutrophils % (auto) 69.6 %; Platelet Count 210 K/uL (130-400); RDW Coefficient of Variation 14.6 % (11.5-14.5); White Blood Count 6.37 K/ul (4.8-10.8)
[2021-10-18 06:46] LABS: BUN Creatinine Ratio 10.4 (10-20); Calcium 9.4 mg/dl (8.5-10.1); Creatinine Clr Calc Pharmacy 21.2 ml/min; Est GFR (Non-African American) 14.6 ml/min; Potassium 4.1 mmol/L (3.5-5.1)
[2021-10-18] MEDS: INSULIN ASPART PER UNIT SC SCH ×4 (08:27→21:19)
[2021-10-18] MEDS: carvediloL 12.5 MG TAB PO SCH ×2 (08:28→20:44)
[2021-10-18] MEDS: ASPIRIN 325 MG ECTAB PO SCH (08:28)
[2021-10-18] MEDS: dilTIAZem HCL 240 MG CAPCR PO SCH ×2 (08:28→20:43)
[2021-10-18] MEDS: GABAPENTIN 300 MG CAP PO SCH (08:29)
[2021-10-18] MEDS: CYANOCOBALAMIN (B-12) 500 MCG TABLET PO SCH (08:29)
[2021-10-18] MEDS: PANTOprazole 40 MG TAB PO SCH (08:29)
[2021-10-18] MEDS ORDERED: cefTRIAXone SODIUM 2,000 MG in DEXTROSE 5% 50 ML IV SCH (09:00)
[2021-10-18] MEDS ORDERED: cefTRIAXone SODIUM 1,000 MG in DEXTROSE 5% 50 ML IV SCH (09:00)
--- NOTE | 2021-10-18 09:10 | Urology Progress Note ---
Date of Service October 18, 2021 Assessment & Plan (1) Right renal atrophy: (2) Acute kidney injury: (3) Retroperitoneal fibrosis: Plan MAURICIO in the setting of retroperitoneal fibrosis and chronic right ureteral stent for obstructed right kidney Lengthy review of her outpatient records and discussion with her She has a very atrophic right kidney which I suspect contributes very little to her overall renal function There is a small mass within this kidney which she recently saw Dr. Renato Williamson to discuss managementinitially they are planning for observation Given her MAURICIO, I think there are several possible underlying etiologies including prerenal secondary to her recent diarrheal illness I suspect that the stone adjacent to the stent on the right is likely a minimal contributing factor given the appearance of that right kidney I worry more that there is the possibility she could have some left-sided obstruction which does not manifest with hydronephrosis secondary to the retroperitoneal fibrosis She had slight improvement in her creatinine overnight We will continue to observe this with hydration and conservative management, however if she plateaus or does not improve further I think it would be worth considering intervention on the left to ensure appropriate drainage She reports that she was scheduled for an outpatient renal scan to evaluate the function of the left kidney, unfortunately with a creatinine of 3.0 I am not certain this would be an accurate test or worth pursuing in the acute setting If it truly is obstructive from retroperitoneal fibrosis, nephrostomy tube may be the ultimate solution as stents are highly likely to fail We will continue to follow closely Admission and Anticipated Discharge Date Admission Date: October 17, 2021 Subjective 70-year-old female with an interesting history of retroperitoneal fibrosis and 25+ years of management of an obstructed right kidney with intermittent stent exchanges She now presents with MAURICIO with a creatinine that was up to approximately 3.5, currently 3.08 Question of UTI Imaging showing a stone adjacent to the right ureteral stent but a very atrophic right kidney with a small mass She has a relatively normal-appearing left kidney which does not exhibit hydronephrosis Prior to her admission she did have a diarrheal illness but reports that she was improving prior to arrival Several months ago her baseline creatinine was around 1.0 but in mid September it was 2.4 and it juneAugust 19.5 Physical Exam Constitutional: well developed and well nourished Respiratory: no respiratory distress Cardiovascular: Extremities: no pedal edema Gastrointestinal (Abdomen): Inspection/Auscultation: abdomen normal to inspection Results & Data ([facility]) Vital Signs (Past 12 Hours) Vital Signs Temp Pulse Pulse Resp BP Pulse Ox O2 Del Method 10/18/21 06:33 37.1 C 67 20 156/67 H 92 Room Air 10/18/21 04:17 36.7 C 79 20 133/72 92 Room Air 10/18/21 00:06 68 10/17/21 23:49 36.7 C 60 18 133/67 92 Room Air PG Care Time/CCT Total # of Minutes Spent Total Time Spent with Patient: Total time spent is greater than 50% in coordination of care (as documented) at patient's floor/unit and/or counseling patient: Coding Level of Care Code 99192 Subseq Hosp Care Lvl 3 Diagnoses Right renal atrophy N26.1 Acute kidney injury N17.9 Retroperitoneal fibrosis N13.5
--- NOTE | 2021-10-18 10:05 | Nephrology Consultation ---
Date of Consultation October 18, 2021 Assessment & Plan (1) Ureteral stone with hydronephrosis: (2) UTI (urinary tract infection): (3) Right renal atrophy: (4) Renal mass: (5) Acute kidney injury: (6) Acute dehydration: Plan MAURICIO with prerenal component. Continue LR to encourage positive fluid balance. Medications are appropriately dosed for kidney function. No emergent indication for dialysis at this time. Potential future indications were discussed with the patient this AM. Document strict I/O's. Repeat metabolic profile this afternoon. Serum calcium is currently acceptable. History suggestive of possible underlying primary hyperparathyroidism. This will be monitored. I cannot exclude possible hypercalcemia associated with malignancy. Lesion in right kidney is being monitored by urology at [facility]. Remains on ceftriaxone for gram negative UTI. No signs of uncontrolled infection or need to emergently decompress the urinary system. Right kidney is atrophic and likely with minimal contribution to kidney function based on review of imaging. Thankfully, no pain or discomfort reported. Continue conservative care. Appreciate urology consultation. I agree that there is no need for emergent intervention. Consideration given to possible progressive retroperitoneal fibrosis on the left. If no improvement in kidney function with management of volume status and time, stenting may be considered once urinary infection improved. Chronic mild, stable anemia. History of Present Illness Reason for Consultation: MAURICIO Requesting Physician: Stanton Resendez MD Attending Physician: Stanton Resendez MD History of Present Illness Mrs. 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 Medical history also notable for a right kidney mass, recurrent UTI, hypertension, diabetes mellitus, gastroparesis, OA/DJD with chronic NSAID use, spinal stenosis, morbid obesity, and moderate to severe aortic stenosis. Glenis was diagnosed with rheumatoid arthritis several months ago and initially started on leflunomide and meloxicam. More recently switched to Celebrex. Serum creatinine measured at ~1.1 mg/dL in June. Glenis was referred to [facility] for evaluation yesterday by her primary poker machine attendant (Dr. Mccord) with a creatinine of 3.3 mg/dL. I reviewed the patient's history with Dr. Mccord. I also discussed the patient's condition with the admitting hospitalist overnight. Glenis was seen and evaluated in her hospital room this morning. 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 Thankfully, she is non-oliguric and creatinine is stable or slightly improved. She is tolerating IVF. Glenis describes a recent history of GI losses including diarrhea and intermittent vomiting as well as decreased appetite. Records from gastroenterology were reviewed. Thankfully, these symptoms have been improving. CT scan obtained yesterday demonstrates an atrophic right kidney with chronic hydronephrosis and a proximal stone, there is an indwelling ureteral stent. There is no hydronephrosis on the left. Mild to moderate cortical atrophy is noted on the left. A 2 cm mass is appreciated in the upper pole of the left kidney. Glenis was admitted to [facility] in June s/p fall at home. Hospitalization was complicated by MAURICIO. Creatinine peaked to 2.1 mg/dL during the admission but rapidly improved to 1.1 mg/dL prior to discharge. Creatinine was 1.5 mg/dL and subsequently 2.4 mg/dL on follow up testing earlier this month. It is noted that serum calcium was elevated at 10.5 mg/dL with a normal serum albumin. PTH elevated at 140 on follow up with normal serum calcium. Glenis has been taken off all vitamin D and calcium supplements. NSAID use, metformin, and furosemide recently stopped by Dr. Mccord. Dr. Mccord's note documents that split renal function several years ago demonstrated 25% function from the right kidney. Glenis was unable to tolerate OLIMPIA/ARB therapy in the past. Urine microsopy notable for 10-30 WBC, no RBC. Culture +GN rods. Glenis has been started on ceftriaxone. No fevers or chills or urinary symptoms. Urine notably less cloudy today per patient. LR infusing at 125 ml/hr. Gabapentin reduced from 900 mg TID to 300 mg daily at admission. Rosuvastatin 5 mg daily as outpatient Rx. Allergies Allergy/AdvReac Type Severity Reaction Status Date / Time amoxicillin Allergy Intermediate Hives Verified 10/17/21 18:01 fluconazole Allergy Mild HIVES Verified 10/17/21 18:01 cephalexin Allergy Unknown hives, Unverified 10/17/21 18:01 itchy hydrochlorothiazide Allergy Unknown DYAZIDE-KIRSTIN Verified 10/17/21 18:01 H nifedipine Allergy Unknown RASH Verified 10/17/21 18:01 nitrofurantoin Allergy Unknown RASH Verified 08/29/22 18:01 olmesartan Allergy Unknown GI UPSET, Verified 10/17/21 18:01 WEIGHT LOSS Sulfa (Sulfonamide Allergy Unknown RASH Verified 10/17/21 18:01 Antibiotics) triamterene Allergy Unknown DYAZIDE-KIRSTIN Verified 10/17/21 18:01 H Penicillins Allergy Unknown Unverified 10/17/21 18:04 Home Medications Medication Instructions Recorded Confirmed Type lancets 33 gauge (AdeelTouch Delica #100 ea 11/11/18 10/10/21 History Lancets) multivitamin (Multiple Vitamins 1 tab PO DAILY 11/11/18 10/17/21 History tablet) omega-3 acid ethyl esters 1 gram 1 cap PO DAILY 11/11/18 10/17/21 History capsule cranberry 400 mg capsule 400 mg PO DAILY #30 caps 07/07/19 10/17/21 Rx melatonin 10 mg capsule 10 mg PO HS PRN sleep #30 caps 07/07/19 10/17/21 Rx Diabetic Shoes #1 ea 08/12/19 10/10/21 Rx triamcinolone acetonide 0.1 % 1 applic topical UD #30 grams 12/23/19 10/17/21 Rx topical cream albuterol sulfate 90 mcg/actuation 1 inh inhalation QID PRN shortness 07/03/20 10/17/21 Rx aerosol inhaler (ProAir HFA) of breath or wheezing #8 grams mecobalamin (vitamin B12) 1,000 1,000 mcg PO DAILY #30 tabs 08/11/20 10/17/21 Rx mcg chewable tablet diclofenac sodium 1 % topical gel 2 g topical QID #300 grams 11/12/20 10/17/21 Rx semaglutide 0.25 mg or 0.5 mg (2 0.5 mg (0.4 mL) subcut WEEKLY 05/02/21 10/17/21 Rx mg/1.5 mL) subcutaneous pen E11.8 #3 mL injector diltiazem HCl 240 mg capsule,24 240 mg PO BID #60 caps 05/13/21 10/17/21 Rx hr,extended release clobetasol 0.05 % topical foam 1 applic topical HS PRN Skin 06/26/21 10/17/21 History Irritation cyanocobalamin (vitamin B-12) 100 mcg PO DAILY 06/26/21 10/17/21 History diphenhydramine HCl 25 mg capsule 25 mg PO Q12H PRN Other 06/26/21 10/17/21 History glucosamine sulf dipot 1 cap PO BID 06/26/21 10/17/21 History chlr,msm,chond 550 mg-C 30 mg-pita 1 mg capsule (Glucosamine Chondroitin) nitrofurantoin macrocrystal 100 mg 100 mg PO BID #14 caps 09/06/21 10/17/21 Rx capsule pantoprazole 40 mg tablet,delayed 40 mg PO DAILY #30 tabs 09/06/21 10/17/21 Rx release rosuvastatin 5 mg tablet 5 mg PO HS #30 tabs 09/06/21 10/17/21 Rx aspirin 325 mg tablet 325 mg PO DAILY #30 tabs 09/12/21 10/17/21 Rx leflunomide 10 mg tablet 10 mg PO DAILY 09/14/21 10/17/21 History potassium citrate 10 mEq (1,080 10 meq PO TID #90 tabs 10/04/21 10/17/21 Rx mg) tablet,extended release carvedilol 12.5 mg tablet 12.5 mg PO BID #60 tabs 10/10/21 10/17/21 Rx gabapentin 300 mg capsule 300 mg PO DAILY #90 caps 10/11/21 10/17/21 Rx nystatin 100,000 unit/mL oral 5 ml buccal QID 10/17/21 10/17/21 History suspension Patient History Medical History Acute hyponatremia Acute kidney injury Acute UTI MAURICIO (acute kidney injury) Anticardiolipin antibody positive Diabetes mellitus 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 Other Information That Helps Us Care for You: No Feels Safe at Home: Yes Safety Concerns: Feels Safe At This Time Childhood Exposure to Second-Hand Smoke: Yes Diet Comment: low fat caffeine: Yes Dental Care, Regularly: Yes Physical Activity Frequency: Does not Exercise Seatbelt Use: always Sunscreen Use: Yes Assistive Devices: Glasses Physical Exam Constitutional: well developed and + morbidly obese; no acute distress Eyes: no scleral abnormality and no corneal abnormality ENMT: Mouth: + dry oral mucous membranes; no oral mucosal abnormality Neck: normal visual inspection and trachea midline Respiratory: normal respiratory effort Auscultation: lungs clear to auscultation bilaterally Cardiovascular: Rate/Rhythm: regular rate Heart Sounds: normal S1 and normal S2 Extremities: no edema Musculoskeletal: Extremities: no cyanosis and no clubbing Skin: + turgor decreased; no lesions Neurologic: Motor/Sensory: no tremor and no asterixis Psychiatric: Orientation: alert and oriented x 3 Results & Data ([facility]) Vital Signs (Past 12 Hours) Vital Signs Temp Pulse Pulse Resp BP Pulse Ox O2 Del Method 10/18/21 09:23 75 10/18/21 06:33 37.1 C 67 20 156/67 H 92 Room Air 10/18/21 04:17 36.7 C 79 20 133/72 92 Room Air 10/18/21 00:06 68 10/17/21 23:49 36.7 C 60 18 133/67 92 Room Air Laboratory Results Laboratory Results - last 24 hr 10/17/21 10/17/21 10/17/21 15:07 15:07 17:30 WBC 6.70 RBC 4.00 Hgb 11.7 L Hct 35.5 MCV 88.8 MCH 29.3 MCHC 33.0 RDW Std Deviation 48.1 H RDW Coeff of Evin 14.8 H Plt Count 235 MPV 9.7 Immature Gran % (Auto) 0.1 Neut % (Auto) 70.8 Lymph % (Auto) 18.4 [place] % (Auto) 7.2 Eos % (Auto) 3.1 Baso % (Auto) 0.4 Neut # (Auto) 4.74 Lymph # (Auto) 1.23 [place] # (Auto) 0.48 Eos # (Auto) 0.21 Baso # (Auto) 0.03 Immature Gran # (Auto) 0.01 Sodium 130 L Potassium 4.6 Chloride 96 L Carbon Dioxide 25 Anion Gap 9 BUN 37 H Creatinine 3.26 H Est Cr Clr Drug Dosing 19.9 Est GFR ( Amer) 15.8 Est GFR (Non-Af Amer) 13.7 BUN/Creatinine Ratio 11.3 Glucose 103 H POC Glucose Calcium 10.0 Total Bilirubin 0.4 AST 16 ALT 12 Alkaline Phosphatase 72 Total Protein 7.5 Albumin 4.4 Globulin 3.1 Albumin/Globulin Ratio 1.4 Urine Color Yellow Urine Appearance Clear Urine pH 7.5 Ur Specific [place] 1.005 Urine Protein Trace H Urine Glucose (UA) Negative Urine Ketones Negative Urine Blood Negative Urine Nitrite Negative Urine Bilirubin Negative Urine Urobilinogen Negative Ur Leukocyte Esterase 2+ H Urine WBC (Auto) 10-30 H Urine RBC (Auto) 0-4 U Hyaline Cast (Auto) 0 U Epithel Cells (Auto) 10-20 H Urine Bacteria (Auto) 3+ H Hepatitis C Ab (EIA) Hep C Ab Signal/Cutoff SARS-CoV-2, RNA, NAAT 10/17/21 10/17/21 10/18/21 20:45 Unknown 05:16 WBC RBC Hgb Hct MCV MCH MCHC RDW Std Deviation RDW Coeff of Evin Plt Count MPV Immature Gran % (Auto) Neut % (Auto) Lymph % (Auto) [place] % (Auto) Eos % (Auto) Baso % (Auto) Neut # (Auto) Lymph # (Auto) [place] # (Auto) Eos # (Auto) Baso # (Auto) Immature Gran # (Auto) Sodium Potassium Chloride Carbon Dioxide Anion Gap BUN Creatinine Est Cr Clr Drug Dosing Est GFR ( Amer) Est GFR (Non-Af Amer) BUN/Creatinine Ratio Glucose POC Glucose 101 H Calcium Total Bilirubin AST ALT Alkaline Phosphatase Total Protein Albumin Globulin Albumin/Globulin Ratio Urine Color Urine Appearance Urine pH Ur Specific [place] Urine Protein Urine Glucose (UA) Urine Ketones Urine Blood Urine Nitrite Urine Bilirubin Urine Urobilinogen Ur Leukocyte Esterase Urine WBC (Auto) Urine RBC (Auto) U Hyaline Cast (Auto) U Epithel Cells (Auto) Urine Bacteria (Auto) Hepatitis C Ab (EIA) Pending Hep C Ab Signal/Cutoff Pending SARS-CoV-2, RNA, NAAT NEGATIVE 10/18/21 10/18/21 10/18/21 05:16 05:16 07:42 WBC 6.37 RBC 3.70 L Hgb 10.7 L Hct 33.2 L MCV 89.7 MCH 28.9 MCHC 32.2 RDW Std Deviation 48.0 H RDW Coeff of Evin 14.6 H Plt Count 210 MPV 10.1 Immature Gran % (Auto) 0.3 Neut % (Auto) 69.6 Lymph % (Auto) 18.5 [place] % (Auto) 8.3 Eos % (Auto) 2.7 Baso % (Auto) 0.6 Neut # (Auto) 4.43 Lymph # (Auto) 1.18 L [place] # (Auto) 0.53 Eos # (Auto) 0.17 Baso # (Auto) 0.04 Immature Gran # (Auto) 0.02 Sodium 137 Potassium 4.1 Chloride 103 Carbon Dioxide 24 Anion Gap 10 BUN 32 H Creatinine 3.08 H Est Cr Clr Drug Dosing 21.2 Est GFR ( Amer) 17.0 Est GFR (Non-Af Amer) 14.6 BUN/Creatinine Ratio 10.4 Glucose 93 POC Glucose 108 H Calcium 9.4 Total Bilirubin AST ALT Alkaline Phosphatase Total Protein Albumin Globulin Albumin/Globulin Ratio Urine Color Urine Appearance Urine pH Ur Specific [place] Urine Protein Urine Glucose (UA) Urine Ketones Urine Blood Urine Nitrite Urine Bilirubin Urine Urobilinogen Ur Leukocyte Esterase Urine WBC (Auto) Urine RBC (Auto) U Hyaline Cast (Auto) U Epithel Cells (Auto) Urine Bacteria (Auto) Hepatitis C Ab (EIA) Hep C Ab Signal/Cutoff SARS-CoV-2, RNA, NAAT PG Care Time/CCT Total # of Minutes Spent Total Time Spent with Patient: Total time spent is greater than 50% in coordination of care (as documented) at patient's floor/unit and/or counseling patient: Coding Level of Care Code 49218 Inpt Consult Level 5 Diagnoses Ureteral stone with hydronephrosis N13.2 UTI (urinary tract infection) N39.0 Right renal atrophy N26.1 Renal mass N28.89 Acute kidney injury N17.9 Acute dehydration E86.0
[2021-10-18] MEDS: DICLOFENAC SOD 1% GEL 100 GM TUBE EXT SCH ×4 (10:30→20:45)
--- NOTE | 2021-10-18 12:24 | Hospitalist Progress Note ---
Date of Service October 18, 2021 Assessment & Plan (1) Ureteral stone with hydronephrosis: Plan: history of right ureteral stricture managed with a chronic right ureteral stent since 1994. She follows with [facility] urology ( Dr. Valdez) and has stents exchanged every 6 months, last performed in June of this year. Urology consultation appreciated. She may have stent exchange this admission. If nephrostomy tube is necessary, she will need to be transferred to [facility]. (2) Acute kidney injury: Plan: Improved with IV fluids. Creatinine down to 3.0 today. Continue IV fluids. Treat UTI. Monitor intake and output. (3) UTI (urinary tract infection): Plan: Gram-negative rods isolated. Final identification and sensitivities pending. Continue intravenous Rocephin, day 2. Blood cultures negative to date. 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 (5) Renal mass: Plan: 1.9 cm right renal mass which has been stable in size for several months, associated with an atrophic kidney measuring 8.7 x 2.8 x 3.[address] Jami Williamson (urology-oncology) this month for evaluation. Current plan is to monitor for now, with plans for a renal scan in the upcoming months to determine split function, as these results would impact recommendations for possible surgical intervention. (6) Right renal atrophy: Plan: split function 10+ years ago revealed 25% function. (7) Diabetes: Plan: - Recently taken off metformin due to worsening renal function. Takes Ozempic injections weekly, last received on 10/16. - Hold Ozempic while inpatient, continue SSI with Accuchecks ACHS. - Continue gabapentin 300 mg daily for neuropathy. (8) Moderate to severe aortic stenosis: Plan: Seen by cardiology last month. Echo from July showed moderate-severe with EF 50-55% Aortic stenosis is not critical or lifestyle limiting at this point. Reported d yspnea may be more closely related to deconditioning. (9) Hypertension: Plan: Continue carvedilol 12.5 mg BID, diltiazem 240 mg daily. (10) Gastroesophageal reflux disease: Plan: Continue Protonix 40 mg daily. (11) Gastroparesis: Plan: History of. No current complaints of nausea, vomiting, diarrhea. (12) Psoriasis: Plan: Treated with clobetasol cream prn, triamcinolone cream prn. Plan To be determined Admission and Anticipated Discharge Date Admission Date: October 17, 2021 Subjective Alert and oriented. No complaints. Urology consultation noted. She may have right ureter stent exchanged later today. Creatinine improved to 3.0 with IV fluids. Nephrology consultation noted. Gram-negative rods isolated in the urine. She remains on Rocephin until final identification and sensitivities. Review of Systems Review of Systems: Constitutional-no fever or chills ENT-no blurred vision, no double vision, no epistaxis, no sore throat Respiratory-no cough, no wheezing, no shortness of breath Cardiac-no palpitations, no chest pain, no syncope GI-no nausea, vomiting, diarrhea, melena, hematochezia -no urinary retention, no urinary incontinence, no dysuria, no hematuria Musculoskeletal-no joint pain, no muscle tenderness Skin-no bruising, no rashes, no pruritus Neuro-no isolated weakness, no paresthesia, no weakness Psych-no depression, no anxiety Physical Exam Physical Exam: General-alert and oriented x3, no fevers, no chills HEENT-head atraumatic and normocephalic, pupils equal and reactive to light, extraocular muscles intact Neck-no lymphadenopathy or thyromegaly, trachea midline Chest-clear to auscultation percussion. No rales wheezing or rhonchi Cardiac-regular rate and rhythm, normal S1 and S2, no murmurs Abdomen-normal bowel sounds, nontender, no hepatosplenomegaly Extremities-no cyanosis, clubbing, or edema Neuro-cranial nerves II through XII intact, motor and sensory function within normal limits, strength symmetrical , no focal deficits Psych-normal affect, normal mood Results & Data Results & Data ([facility]) Vital Signs (Past 12 Hours) Vital Signs Temp Pulse Pulse Resp BP Pulse Ox O2 Del Method 10/18/21 12:04 Room Air 10/18/21 11:14 36.6 C 64 20 131/70 94 Room Air 10/18/21 09:23 75 10/18/21 06:33 37.1 C 67 20 156/67 H 92 Room Air 10/18/21 04:17 36.7 C 79 20 133/72 92 Room Air Laboratory Results 10/18/21 05:16 10/18/21 05:16 PG Care Time/CCT Total # of Minutes Spent Total Time Spent with Patient: Total time spent is greater than 50% in coordination of care (as documented) at patient's floor/unit and/or counseling patient: Coding Level of Care Code 37608 Subseq Hosp Care Lvl 3 Diagnoses Ureteral stone with hydronephrosis N13.2 Acute kidney injury N17.9 UTI (urinary tract infection) N39.0 Retroperitoneal fibrosis N13.5 Renal mass N28.89 Right renal atrophy N26.1 Diabetes E11.9 Moderate to severe aortic stenosis I35.0 Hypertension I10 Gastroesophageal reflux disease K21.9 Gastroparesis K31.84 Psoriasis L40.9
[2021-10-18 16:52] LABS: Albumin Level 3.8 gm/dl (3.4-5.0); BUN Creatinine Ratio 10.1 (10-20); Calcium 9.2 mg/dl (8.5-10.1); Creatinine Clr Calc Pharmacy 21.2 ml/min; Est GFR (Non-African American) 14.6 ml/min; Phosphorus 4.3 mg/dl (2.5-4.9)
[2021-10-18] MEDS ORDERED: FAMOTIDINE 40 MG TABLET PO ONE (20:17)
[2021-10-18] MEDS: ROSUVASTATIN CALCIUM 5 MG TAB PO SCH (20:44)
[2021-10-18] MEDS: HEPARIN SOD 5,000 UNIT/0.5 ML VIAL SQ SCH (20:44)
[2021-10-18] MEDS: diphenhydrAMINE 50 MG/ML VIAL IV SCH (22:02)
[2021-10-18] MEDS: MELATONIN 3 MG TAB PO PRN ×2 (22:14→23:53)
[2021-10-18] MEDS: cefTRIAXone SODIUM 2,000 MG in DEXTROSE 5% 50 ML IV SCH (23:43)
[2021-10-19] MEDS: LACTATED RINGER'S 1,000 ML IV SCH ×2 (05:50→14:01)
[2021-10-19 06:49] LABS: Basophils # (auto) 0.04 K/uL (0-0.2); Basophils % (auto) 0.6 %; Eosinophils # (auto) 0.18 K/uL (0-0.50); Eosinophils % (auto) 2.8 %; Hematocrit (blood only) 33.5 % (34.1-44.9); Hemoglobin 10.9 g/dl (12.0-16.0); Immature Granulocytes # (auto) 0.02 K/uL (0.00-0.02); Immature Granulocytes % (auto) 0.3 %; Lymphocytes # (auto) 1.21 K/uL (1.2-3.4); Lymphocytes % (auto) 18.9 %; Mean Corpuscular Hemoglobin 28.8 pg (25.0-34.0); Mean Corpuscular Hgb Conc 32.5 g/dL (32.0-36.0); Mean Corpuscular Volume 88.6 fL (80.0-100.0); Monocytes % (auto) 7.8 %; Neutrophils # (auto) 4.45 K/uL (1.4-6.5); Neutrophils % (auto) 69.6 %; Platelet Count 202 K/uL (130-400); RDW Coefficient of Variation 14.6 % (11.5-14.5); RDW Standard Deviation 47.4 fL (36.4-46.3); Red Blood Count 3.78 M/uL (3.93-5.22)
[2021-10-19 07:31] LABS: BUN Creatinine Ratio 9.9 (10-20); Calcium 9.3 mg/dl (8.5-10.1); Creatinine Clr Calc Pharmacy 22.2 ml/min; Est GFR (Non-African American) 15.5 ml/min; Potassium 3.8 mmol/L (3.5-5.1)
--- NOTE | 2021-10-19 09:07 | Urology Progress Note ---
Date of Service October 19, 2021 Assessment & Plan (1) Right renal atrophy: (2) Acute kidney injury: (3) Retroperitoneal fibrosis: Plan MAURICIO in the setting of retroperitoneal fibrosis and chronic right ureteral stent for obstructed right kidney. - Patient remains afebrile. - No flank pain. - Creatinine is downtrending slowly, 2.93 today - continue to trend. - Urine culture prelim E. coli, on IV Ceftriaxone. - No acute intervention planned today, okay to resume diet. - Continue supportive care, antibiotics and management per primary service. We will continue to observe with hydration and conservative management, however if she plateaus or does not improve further then can consider intervention on the left to ensure appropriate drainage. Discussed with patient. If intervention is eventually required, then she feels more comfortable having intervention with her established urologist. This is reasonable presuming she remains clinically stable and continues to improve. If it is truly obstructive from retroperitoneal fibrosis, nephrostomy tube may be the ultimate solution as stents are highly likely to fail. We will continue to follow closely. Case discussed with Dr. Brown. See attending physician note. Admission and Anticipated Discharge Date Admission Date: October 17, 2021 Supervising Physician Co-Signing Physician Notes I have discussed Ms. Wilson's case with VILLA Hamm and agree with the above documentation. Creatinine is gradually improving, she remains hemodynamically stable and is not having symptoms to suggest obstruction. For now would recommend continue conservative management and hold off ureteral stent placement. Subjective Patient awake and resting in bed. No acute issues overnight. Subjectively doing well. No flank pain or abdominal pain. Voiding without difficulty, no dysuria or hematuria. No nausea or vomiting. No fever or chills. Review of Systems Constitutional: as per Subjective / HPI Gastrointestinal: as per Subjective / HPI Genitourinary: as per Subjective / HPI Physical Exam Constitutional: + obese; no acute distress Respiratory: no respiratory distress and no labored breathing Cardiovascular: Extremities: no pedal edema Gastrointestinal (Abdomen): Inspection/Auscultation: abdomen normal to inspection; abdomen not distended Percussion/Palpation: abdomen soft; abdomen nontender and no guarding Musculoskeletal: Head/Neck/Chest: normocephalic and head atraumatic Neurologic: moves all extremities and awake Psychiatric: Orientation: alert and oriented x 3 Genitourinary: no CVA tenderness Results & Data ([place]) Vital Signs (Past 12 Hours) Vital Signs Temp Pulse Pulse Resp BP BP Pulse Ox 10/19/21 08:08 75 10/19/21 08:01 37.2 C 77 16 171/70 H 93 10/19/21 04:11 37.5 C 70 18 135/77 92 10/18/21 22:47 36.8 C 72 18 148/78 H 92 10/18/21 22:19 70 O2 Del Method 10/19/21 08:08 10/19/21 08:01 Room Air 10/19/21 04:11 Room Air 10/18/21 22:47 Room Air 10/18/21 22:19 PG Care Time/CCT Total # of Minutes Spent Total Time Spent with Patient: Total time spent is greater than 50% in coordination of care (as documented) at patient's floor/unit and/or counseling patient: Coding Level of Care Code 74738 Subseq Hosp Care Lvl 2 Diagnoses Right renal atrophy N26.1 Acute kidney injury N17.9 Retroperitoneal fibrosis N13.5
[2021-10-19] MEDS: dilTIAZem HCL 240 MG CAPCR PO SCH ×2 (09:40→22:04)
[2021-10-19] MEDS: DICLOFENAC SOD 1% GEL 100 GM TUBE EXT SCH ×4 (09:40→20:31)
[2021-10-19] MEDS: GABAPENTIN 300 MG CAP PO SCH (09:40)
[2021-10-19] MEDS: PANTOprazole 40 MG TAB PO SCH (09:40)
[2021-10-19] MEDS: HEPARIN SOD 5,000 UNIT/0.5 ML VIAL SQ SCH ×2 (09:40→20:38)
[2021-10-19] MEDS: carvediloL 12.5 MG TAB PO SCH ×2 (09:40→22:03)
[2021-10-19] MEDS: CYANOCOBALAMIN (B-12) 500 MCG TABLET PO SCH (09:40)
[2021-10-19] MEDS: ASPIRIN 325 MG ECTAB PO SCH (09:40)
[2021-10-19] MEDS: INSULIN ASPART PER UNIT SC SCH ×4 (10:08→20:40)
--- NOTE | 2021-10-19 10:14 | Nephrology Progress Note ---
Date of Service October 19, 2021 Assessment & Plan (1) Ureteral stone with hydronephrosis: (2) UTI (urinary tract infection): (3) Right renal atrophy: (4) Renal mass: (5) Acute kidney injury: (6) Acute dehydration: Plan MAURICIO with prerenal component. Continue LR for now. If tolerating adequate PO, will stop IVF later today once current bag complete. Medications are appropriately dosed for kidney function. No emergent indication for dialysis at this time. Creatinine stable. Document strict I/O's. Importance of documenting output reviewed with bedside nurse. Repeat metabolic profile tomorrow AM. Serum calcium is currently acceptable. History suggestive of possible underlying primary hyperparathyroidism. This will be monitored. I cannot exclude possible hypercalcemia associated with malignancy. Remains on ceftriaxone for C coli UTI. E coli similar to cultures in July and August. I suspect at minimum stent will need to be changed but I would certainly question whether right nephrectomy in the near future should be considered for recurrent UTI and possible RCC. The kidney appears to be minimally functional but given her advanced kidney dysfunction we would not likely be able to demonstrate function with a lasix scan. No signs of uncontrolled infection or need to emergently decompress the urinary system. Urology consultation appreciated. No emergent indication is required. Unclear if there would be benefit to stenting on left at this time. Chronic mild, stable anemia. Admission and Anticipated Discharge Date Admission Date: October 17, 2021 Subjective No acute events overnight. Glenis feels well this AM. She denies any urinary complaints. No fevers or chills. No N/V or diarrhea. Feeling slightly constipated. No fluid retention or edema. Review of Systems Review of Systems: All systems reviewed & are unremarkable except as noted in HPI & below Physical Exam Constitutional: well developed and + morbidly obese; no acute distress Eyes: no scleral abnormality and no corneal abnormality ENMT: Mouth: no oral mucosal abnormality and oral mucous membranes not dry Neck: normal visual inspection and trachea midline Respiratory: normal respiratory effort Auscultation: lungs clear to auscultation bilaterally Cardiovascular: Rate/Rhythm: regular rate Heart Sounds: normal S1 and normal S2 Extremities: no edema Musculoskeletal: Extremities: no cyanosis and no clubbing Skin: + turgor decreased; no lesions Neurologic: Motor/Sensory: no tremor and no asterixis Psychiatric: Orientation: alert and oriented x 3 Results & Data ([facility]) Vital Signs (Past 12 Hours) Vital Signs Temp Pulse Pulse Resp BP BP Pulse Ox 10/19/21 08:08 75 10/19/21 08:01 37.2 C 77 16 171/70 H 93 10/19/21 04:11 37.5 C 70 18 135/77 92 10/18/21 22:47 36.8 C 72 18 148/78 H 92 10/18/21 22:19 70 O2 Del Method 10/19/21 08:08 10/19/21 08:01 Room Air 10/19/21 04:11 Room Air 10/18/21 22:47 Room Air 10/18/21 22:19 Laboratory Results Laboratory Results - last 24 hr 10/18/21 10/18/21 10/18/21 11:22 15:46 16:34 WBC RBC Hgb Hct MCV MCH MCHC RDW Std Deviation RDW Coeff of Evin Plt Count MPV Immature Gran % (Auto) Neut % (Auto) Lymph % (Auto) Mccone % (Auto) Eos % (Auto) Baso % (Auto) Neut # (Auto) Lymph # (Auto) Mccone # (Auto) Eos # (Auto) Baso # (Auto) Immature Gran # (Auto) Sodium 135 L Potassium 4.0 Chloride 102 Carbon Dioxide 24 Anion Gap 9 BUN 31 H Creatinine 3.08 H Est Cr Clr Drug Dosing 21.2 Est GFR ( Amer) 17.0 Est GFR (Non-Af Amer) 14.6 BUN/Creatinine Ratio 10.1 Glucose 90 POC Glucose 112 H 105 H Calcium 9.2 Phosphorus 4.3 Albumin 3.8 10/18/21 10/19/21 10/19/21 20:08 06:13 06:13 WBC 6.40 RBC 3.78 L Hgb 10.9 L Hct 33.5 L MCV 88.6 MCH 28.8 MCHC 32.5 RDW Std Deviation 47.4 H RDW Coeff of Evin 14.6 H Plt Count 202 MPV 10.0 Immature Gran % (Auto) 0.3 Neut % (Auto) 69.6 Lymph % (Auto) 18.9 Mccone % (Auto) 7.8 Eos % (Auto) 2.8 Baso % (Auto) 0.6 Neut # (Auto) 4.45 Lymph # (Auto) 1.21 Mccone # (Auto) 0.50 Eos # (Auto) 0.18 Baso # (Auto) 0.04 Immature Gran # (Auto) 0.02 Sodium 137 Potassium 3.8 Chloride 104 Carbon Dioxide 23 Anion Gap 10 BUN 29 H Creatinine 2.93 H Est Cr Clr Drug Dosing 22.2 Est GFR ( Amer) 18.0 Est GFR (Non-Af Amer) 15.5 BUN/Creatinine Ratio 9.9 L Glucose 102 H POC Glucose 108 H Calcium 9.3 Phosphorus Albumin 10/19/21 07:47 WBC RBC Hgb Hct MCV MCH MCHC RDW Std Deviation RDW Coeff of Evin Plt Count MPV Immature Gran % (Auto) Neut % (Auto) Lymph % (Auto) Mccone % (Auto) Eos % (Auto) Baso % (Auto) Neut # (Auto) Lymph # (Auto) Mccone # (Auto) Eos # (Auto) Baso # (Auto) Immature Gran # (Auto) Sodium Potassium Chloride Carbon Dioxide Anion Gap BUN Creatinine Est Cr Clr Drug Dosing Est GFR ( Amer) Est GFR (Non-Af Amer) BUN/Creatinine Ratio Glucose POC Glucose 110 H Calcium Phosphorus Albumin PG Care Time/CCT Total # of Minutes Spent Total Time Spent with Patient: Total time spent is greater than 50% in coordination of care (as documented) at patient's floor/unit and/or counseling patient: Coding Level of Care Code 70911 Subseq Hosp Care Lvl 3 Diagnoses Ureteral stone with hydronephrosis N13.2 UTI (urinary tract infection) N39.0 Right renal atrophy N26.1 Renal mass N28.89 Acute kidney injury N17.9 Acute dehydration E86.0
--- NOTE | 2021-10-19 15:02 | Hospitalist Progress Note ---
Date of Service October 19, 2021 Assessment & Plan (1) Ureteral stone with hydronephrosis: Plan: history of right ureteral stricture managed with a chronic right ureteral stent since 1994. She follows with [facility] urology ( Dr. Valdez) and has stents exchanged every 6 months, last performed in June of this year. Urology consultation appreciated. No intervention planned this admission. (2) Acute kidney injury: Plan: Improving slowly with IV fluids. Creatinine down to 2.9 today. Continue IV fluids. Treat UTI. Monitor intake and output. Appreciate nephrology consultation (3) UTI (urinary tract infection): Plan: E. coli isolated. Continue intravenous Rocephin, day 3. Blood cultures negative to date. 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 (5) Renal mass: Plan: 1.9 cm right renal mass which has been stable in size for several months, associated with an atrophic kidney measuring 8.7 x 2.8 x 3.[address] Jami Williamson (urology-oncology) this month for evaluation. Current plan is to monitor for now, with plans for a renal scan in the upcoming months to determine split function, as these results would impact recommendations for possible surgical intervention. (6) Right renal atrophy: Plan: split function 10+ years ago revealed 25% function. (7) Diabetes: Plan: - Recently taken off metformin due to worsening renal function. Takes Ozempic injections weekly, last received on 10/16. - Hold Ozempic while inpatient, continue SSI with Accuchecks ACHS. - Continue gabapentin 300 mg daily for neuropathy. (8) Moderate to severe aortic stenosis: Plan: Seen by cardiology last month. Echo from July showed moderate-severe with EF 50-55% Aortic stenosis is not critical or lifestyle limiting at this point. Reported dyspnea may be more closely related to deconditioning. (9) Hypertension: Plan: Continue carvedilol 12.5 mg BID, diltiazem 240 mg daily. (10) Gastroesophageal reflux disease: Plan: Continue Protonix 40 mg daily. (11) Gastroparesis: Plan: History of. No current complaints of nausea, vomiting, diarrhea. (12) Psoriasis: Plan: Treated with clobetasol cream prn, triamcinolone cream prn. Plan Eventual discharge to home. Creatinine continues to improve with IV fluids. Admission and Anticipated Discharge Date Admission Date: October 17, 2021 Subjective Alert and oriented. No new problems. Urology is not planning any intervention at this time. Creatinine is decreasing slowly down to 2.9. Urine culture positive for E. coli. She remains on Rocephin. IV fluid rate taper down. Hopefully she can go home soon. Nephrology and urology entries noted Review of Systems Review of Systems: Constitutional-no fever or chills ENT-no blurred vision, no double vision, no epistaxis, no sore throat Respiratory-no cough, no wheezing, no shortness of breath Cardiac-no palpitations, no chest pain, no syncope GI-no nausea, vomiting, diarrhea, melena, hematochezia -no urinary retention, no urinary incontinence, no dysuria, no hematuria Musculoskeletal-no joint pain, no muscle tenderness Skin-no bruising, no rashes, no pruritus Neuro-no isolated weakness, no paresthesia, no weakness Psych-no depression, no anxiety Physical Exam Physical Exam: General-alert and oriented x3, no fevers, no chills HEENT-head atraumatic and normocephalic, pupils equal and reactive to light, extraocular muscles intact Neck-no lymphadenopathy or thyromegaly, trachea midline Chest-clear to auscultation percussion. No rales wheezing or rhonchi Cardiac-regular rate and rhythm, normal S1 and S2, no murmurs Abdomen-normal bowel sounds, nontender, no hepatosplenomegaly Extremities-no cyanosis, clubbing, or edema Neuro-cranial nerves II through XII intact, motor and sensory function within normal limits, strength symmetrical , no focal deficits Psych-normal affect, normal mood Results & Data Results & Data ([facility]) Vital Signs (Past 12 Hours) Vital Signs Temp Pulse Pulse Resp BP Pulse Ox O2 Del Method 10/19/21 08:08 75 10/19/21 08:01 37.2 C 77 16 171/70 H 93 Room Air 10/19/21 04:11 37.5 C 70 18 135/77 92 Room Air Laboratory Results 10/19/21 06:13 10/19/21 06:13 PG Care Time/CCT Total # of Minutes Spent Total Time Spent with Patient: Total time spent is greater than 50% in coordination of care (as documented) at patient's floor/unit and/or counseling patient: Coding Level of Care Code 69552 Subseq Hosp Care Lvl 3 Diagnoses Ureteral stone with hydronephrosis N13.2 Acute kidney injury N17.9 UTI (urinary tract infection) N39.0 Retroperitoneal fibrosis N13.5 Renal mass N28.89 Right renal atrophy N26.1 Diabetes E11.9 Moderate to severe aortic stenosis I35.0 Hypertension I10 Gastroesophageal reflux disease K21.9 Gastroparesis K31.84 Psoriasis L40.9
[2021-10-19] MEDS: FAMOTIDINE 40 MG TABLET PO SCH (20:26)
[2021-10-19] MEDS: POLYETHYLENE (MIRALAX) 17 GM PACK PO PRN (20:27)
--- NOTE | 2021-10-19 21:45 | Communication Note ---
Date of Service: October 19, 2021 Night resident note I was contacted by pharmacy regarding patient's melatonin dose. Patient reports taking 20mg nightly at home. Last night, patient was having trouble sleeping; I initially tried a reduced dose (9mg) but this was ineffective after a couple hours, and so a repeat 9mg dose was given with good effect. Tonight I've increased her nightly dose from 9mg nightly to 18mg nightly. Pharmacy made me aware this is over our pharmacy's max recommended daily dose. I am okay with exceeding the 12mg recommended limit given patient's home dose, patient tolerating 18mg yesterday, and because patient is on fall precautions. Harshal Paul PGY-3 Resident Activity Tracking Resident Involvement: Resident Care Provided and Equity Research Analyst Coverage Note Care Provided: Adult Hospital Medicine
[2021-10-19] MEDS: MELATONIN 3 MG TAB PO PRN (22:02)
[2021-10-19] MEDS: ROSUVASTATIN CALCIUM 5 MG TAB PO SCH (22:04)
[2021-10-19] MEDS: diphenhydrAMINE 50 MG/ML VIAL IV SCH (22:06)
[2021-10-19] MEDS: cefTRIAXone SODIUM 2,000 MG in DEXTROSE 5% 50 ML IV SCH (22:45)
[2021-10-20] MEDS: LACTATED RINGER'S 1,000 ML IV SCH (04:50)
[2021-10-20 06:51] LABS: Basophils # (auto) 0.04 K/uL (0-0.2); Basophils % (auto) 0.7 %; Eosinophils # (auto) 0.17 K/uL (0-0.50); Eosinophils % (auto) 2.9 %; Hematocrit (blood only) 32.2 % (34.1-44.9); Hemoglobin 10.4 g/dl (12.0-16.0); Immature Granulocytes # (auto) 0.01 K/uL (0.00-0.02); Immature Granulocytes % (auto) 0.2 %; Lymphocytes # (auto) 1.24 K/uL (1.2-3.4); Lymphocytes % (auto) 21.4 %; Mean Corpuscular Hemoglobin 29.1 pg (25.0-34.0); Mean Corpuscular Hgb Conc 32.3 g/dL (32.0-36.0); Mean Corpuscular Volume 89.9 fL (80.0-100.0); Mean Platelet Volume 9.8 fL (9.4-12.3); Monocytes # (auto) 0.46 K/uL (0.24-0.82); Monocytes % (auto) 7.9 %; Neutrophils # (auto) 3.87 K/uL (1.4-6.5); Neutrophils % (auto) 66.9 %; Platelet Count 186 K/uL (130-400); RDW Coefficient of Variation 14.4 % (11.5-14.5); RDW Standard Deviation 47.5 fL (36.4-46.3); Red Blood Count 3.58 M/uL (3.93-5.22); White Blood Count 5.79 K/ul (4.8-10.8)
[2021-10-20 07:17] LABS: Calcium 9.4 mg/dl (8.5-10.1); Creatinine Clr Calc Pharmacy 22.5 ml/min; Est GFR (African American) 18.3 ml/min; Est GFR (Non-African American) 15.8 ml/min; Potassium 3.6 mmol/L (3.5-5.1)
[2021-10-20] MEDS: INSULIN ASPART PER UNIT SC SCH ×4 (08:59→21:39)
[2021-10-20] MEDS: ASPIRIN 325 MG ECTAB PO SCH (09:01)
[2021-10-20] MEDS: CYANOCOBALAMIN (B-12) 500 MCG TABLET PO SCH (09:02)
[2021-10-20] MEDS: DICLOFENAC SOD 1% GEL 100 GM TUBE EXT SCH ×4 (09:02→20:43)
[2021-10-20] MEDS: GABAPENTIN 300 MG CAP PO SCH (09:03)
[2021-10-20] MEDS: FAMOTIDINE 40 MG TABLET PO SCH (09:03)
[2021-10-20] MEDS: PANTOprazole 40 MG TAB PO SCH (09:03)
[2021-10-20] MEDS: HEPARIN SOD 5,000 UNIT/0.5 ML VIAL SQ SCH ×2 (09:03→20:44)
--- NOTE | 2021-10-20 09:39 | Nephrology Progress Note ---
Date of Service October 20, 2021 Assessment & Plan (1) Ureteral stone with hydronephrosis: (2) UTI (urinary tract infection): (3) Right renal atrophy: (4) Renal mass: (5) Acute kidney injury: (6) Acute dehydration: Plan MAURICIO with prerenal component. Creatinine has marginally improved from 3.3 to 2.8 mg/dL since admission. Noted worsening was seen from August @ 1.5 mg/dL to earlier this month @ 2.5 mg/dL. Volume status is acceptable. Electrolytes are normal and there is no emergent indication for dialysis. Thankfully, we have a reached a plateau. IVF will be stopped today; Glenis is tolerating PO intake well. She certainly has had some progressive CKD over the past couple of months that was not volume mediated. Medications are appropriately dosed for kidney function. She remains on IV ceftriaxone for E coli UTI. E coli is similar to cultures in July and August. I suspect at minimum stent will need to be changed versus right nephrectomy. Glenis plans to follow up with Dr. Valdez and Dr. Williamson in this regard. I discussed the limitations of performing MAG3 scan in the setting of MAURICIO today. She expressed understanding. If there is worsening of kidney function off of IVF, consider possibility of progressive retroperitoneal fibrosis. Admission and Anticipated Discharge Date Admission Date: October 17, 2021 Subjective No acute events overnight. Glenis is very anxious this AM. She is understandably worried about her condition and told me that she is waiting to hear from urology with an understanding that they would be in touch with Dr. Valdez. Glenis's appetite is fair. She denies any diarrhea. She is not experiencing notable nausea or vomiting since admission. She is tolerating IVF well and denies any fluid retention or edema. Review of Systems Review of Systems: All systems reviewed & are unremarkable except as noted in HPI & below Physical Exam Constitutional: well developed and + morbidly obese; no acute distress Eyes: no scleral abnormality and no corneal abnormality ENMT: Mouth: no oral mucosal abnormality and oral mucous membranes not dry Neck: normal visual inspection and trachea midline Respiratory: normal respiratory effort Auscultation: lungs clear to auscultation bilaterally Cardiovascular: Rate/Rhythm: regular rate Heart Sounds: normal S1 and normal S2 Extremities: no edema Musculoskeletal: Extremities: no cyanosis and no clubbing Skin: + turgor decreased; no lesions Neurologic: Motor/Sensory: no tremor and no asterixis Psychiatric: Orientation: alert and oriented x 3 Results & Data ([facility]) Vital Signs (Past 12 Hours) Vital Signs Temp Pulse Pulse Resp BP Pulse Ox O2 Del Method 10/20/21 07:47 37.5 C 69 18 149/74 H 94 Room Air 10/20/21 03:05 36.7 C 75 18 157/83 H 92 Room Air 10/19/21 23:22 37.1 C 82 18 163/83 H 91 Room Air 10/19/21 22:18 83 Laboratory Results Laboratory Results - last 24 hr 10/18/21 10/19/21 10/19/21 05:16 16:36 20:17 WBC RBC Hgb Hct MCV MCH MCHC RDW Std Deviation RDW Coeff of Evin Plt Count MPV Immature Gran % (Auto) Neut % (Auto) Lymph % (Auto) Hamlin % (Auto) Eos % (Auto) Baso % (Auto) Neut # (Auto) Lymph # (Auto) Hamlin # (Auto) Eos # (Auto) Baso # (Auto) Immature Gran # (Auto) Sodium Potassium Chloride Carbon Dioxide Anion Gap BUN Creatinine Est Cr Clr Drug Dosing Est GFR ( Amer) Est GFR (Non-Af Amer) BUN/Creatinine Ratio Glucose POC Glucose 91 95 Calcium Hepatitis C Ab (EIA) NON-REACTIVE Hep C Ab Signal/Cutoff 0.05 10/20/21 10/20/21 10/20/21 06:30 06:30 07:35 WBC 5.79 RBC 3.58 L Hgb 10.4 L Hct 32.2 L MCV 89.9 MCH 29.1 MCHC 32.3 RDW Std Deviation 47.5 H RDW Coeff of Evin 14.4 Plt Count 186 MPV 9.8 Immature Gran % (Auto) 0.2 Neut % (Auto) 66.9 Lymph % (Auto) 21.4 [place]lin % (Auto) 7.9 Eos % (Auto) 2.9 Baso % (Auto) 0.7 Neut # (Auto) 3.87 Lymph # (Auto) 1.24 [place]lin # (Auto) 0.46 Eos # (Auto) 0.17 Baso # (Auto) 0.04 Immature Gran # (Auto) 0.01 Sodium 136 Potassium 3.6 Chloride 104 Carbon Dioxide 22 Anion Gap 10 BUN 26 H Creatinine 2.89 H Est Cr Clr Drug Dosing 22.5 Est GFR ( Amer) 18.3 Est GFR (Non-Af Amer) 15.8 BUN/Creatinine Ratio 9.0 L Glucose 96 POC Glucose 117 H Calcium 9.4 Hepatitis C Ab (EIA) Hep C Ab Signal/Cutoff PG Care Time/CCT Total # of Minutes Spent Total Time Spent with Patient: Total time spent is greater than 50% in coordination of care (as documented) at patient's floor/unit and/or counseling patient: Coding Level of Care Code 97224 Subseq Hosp Care Lvl 3 Diagnoses Ureteral stone with hydronephrosis N13.2 UTI (urinary tract infection) N39.0 Right renal atrophy N26.1 Renal mass N28.89 Acute kidney injury N17.9 Acute dehydration E86.0
[2021-10-20] MEDS: dilTIAZem HCL 240 MG CAPCR PO SCH ×2 (10:16→20:43)
[2021-10-20] MEDS: ONDANSETRON INJ 2 MG/ML 2 ML VIAL IV PRN ×2 (10:16→20:49)
[2021-10-20] MEDS: carvediloL 12.5 MG TAB PO SCH ×2 (10:16→20:43)
--- NOTE | 2021-10-20 13:37 | Urology Progress Note ---
Date of Service October 20, 2021 Assessment & Plan (1) Right renal atrophy: (2) Acute kidney injury: (3) Retroperitoneal fibrosis: Plan MAURICIO in the setting of retroperitoneal fibrosis and chronic right ureteral stent for obstructed right kidney. - Patient subjectively doing well. - She remains afebrile, hemodynamically stable. No flank pain. - Creatinine is stable and downtrending slowly, 2.89 today - continue to trend. - Urine culture grew out E. coli, on IV Ceftriaxone. - Nephrology following - IVF have been discontinued today. - Several possible underlying etiologies of her MAURICIO including prerenal, possible obstruction from progressive retroperitoneal fibrosis. - Can consider intervention on the left to ensure appropriate drainage if kidney function deteriorates/plateaus. - For now will continue conservative management and hold off ureteral stent placement. - If it is obstructive from retroperitoneal fibrosis, nephrostomy tube may be the ultimate solution as stents are highly likely to fail. - She feels more comfortable having intervention with her established urologist, Dr. Valdez, which is very reasonable. - She can see Dr. Valdez after discharge and possibly have her right stent exchanged early and consider left stent as well. - will continue to follow. Case discussed with Dr. Brown. See attending physician note. Admission and Anticipated Discharge Date Admission Date: October 17, 2021 Supervising Physician Co-Signing Physician Notes I have discussed Ms. Wilson's case with VILLA Hamm and agree with the above documentation. Creatinine continues to slowly improve and she is not having any flank pain. I do not think she requires any urologic intervention at this time. She should see her established urologist as an outpatient for routine stent exchange and to discuss potential stent placement on the contralateral kidney. Subjective Patient seen at bedside, her and daughter are present today. No acute issues overnight. Subjectively doing well, reports she slept much better last night. No flank or abdominal pain. Appetite is low, no nausea or vomiting. Voiding spontaneously, no dysuria or hematuria. No fever or chills. Patient and family would like to transfer to [facility]. Review of Systems Constitutional: as per Subjective / HPI Gastrointestinal: as per Subjective / HPI Genitourinary: as per Subjective / HPI Physical Exam Constitutional: + obese; no acute distress Respiratory: no respiratory distress and no labored breathing Gastrointestinal (Abdomen): Inspection/Auscultation: abdomen normal to ins pection; abdomen not distended Percussion/Palpation: abdomen soft; abdomen nontender and no guarding Musculoskeletal: Head/Neck/Chest: normocephalic and head atraumatic Neurologic: moves all extremities and awake Psychiatric: Orientation: alert and oriented x 3 Genitourinary: no CVA tenderness Results & Data ([facility]) Vital Signs (Past 12 Hours) Vital Signs Temp Pulse Resp BP Pulse Ox O2 Del Method 10/20/21 11:11 36.8 C 69 18 166/82 H 93 Room Air 10/20/21 08:00 Room Air 10/20/21 07:47 37.5 C 69 18 149/74 H 94 Room Air 10/20/21 03:05 36.7 C 75 18 157/83 H 92 Room Air PG Care Time/CCT Total # of Minutes Spent Total Time Spent with Patient: Total time spent is greater than 50% in coordination of care (as documented) at patient's floor/unit and/or counseling patient: Coding Level of Care Code 22396 Subseq Hosp Care Lvl 2 Diagnoses Right renal atrophy N26.1 Acute kidney injury N17.9 Retroperitoneal fibrosis N13.5
--- NOTE | 2021-10-20 17:14 | Hospitalist Progress Note ---
Date of Service October 20, 2021 Assessment & Plan (1) Ureteral stone with hydronephrosis: Plan: History of right ureteral stricture managed with a chronic right ureteral stent since 1994. She follows with [facility] urology ( Dr. Joel Valdez) and has stents exchanged every 6 months, last performed 07/01/2021. Urology consultation appreciated. No intervention planned this admission. Patient requesting transfer to [facility] for evaluation by her ur ological team for stent replacement (2) Acute kidney injury: Plan: Improving slowly with IV fluids. Creatinine down to 2.9 today. Continue IV fluids. Treat UTI. Monitor intake and output. Appreciate nephrology consultation (3) UTI (urinary tract infection): Plan: E. coli isolated. Continue intravenous Rocephin, day 4. Blood cultures negative to date. 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 The patient's last stent exchange was 07/01/2021 Patient was told that due to the increased fibrosis that she most likely would require more frequent stent changes and request transfer to [facility] to be evaluated by her urological team (5) Renal mass: Plan: Seen by Dr. Renato Williamson 10/06/2021. Patient was seen in the clinic for follow-up abdomen newly discovered 1.9 cm enhancing right upper pole renal mass with significantly atrophic right kidney with CT of the abdomen pelvis on 08/2021 The patient has no gross hematuria dysuria or flank pain Unclear etiology or malignant status. Per review of the note, up to 30% of renal masses less than 4 cm are benign It was suggested that the patient undergo renal scan to determine split function, as these results would impact recommendations for possible surgical intervention vs MRI imaging in 1 year Routine urology consult placed this admission recommends continued observation with no intervention. (6) Right renal atrophy: Plan: Split function 10+ years ago revealed 25% function. (7) Diabetes: Plan: Recently taken off metformin due to worsening renal function. Takes Ozempic injections weekly, last received on 10/16. Hold Ozempic while inpatient, continue SSI with Accuchecks ACHS. Continue gabapentin 300 mg daily for neuropathy. (8) Moderate to severe aortic stenosis: Plan: Seen by cardiology last month. Echo from July showed moderate-severe with EF 50-55% Aortic valve area at 1.0 cm2 Hold IV fluids as patient has adequate oral intake. (9) Hypertension: Plan: Continue carvedilol 12.5 mg BID, diltiazem 240 mg daily. (10) Gastroesophageal reflux disease: Plan: Continue Protonix 40 mg daily. (11) Gastroparesis: Plan: History of gastroparesis Scheduled for gastric emptying scan next month Is not on any motility agents No current complaints of nausea/vomiting although she has had this in the past (12) Psoriasis: Plan: Treated with clobetasol cream prn, triamcinolone cream prn. Plan Patient requesting transfer to [facility] in [place]. Transfer center contacted. Creatinine continues to improve slowly. Admission and Anticipated Discharge Date Admission Date: October 17, 2021 Subjective Attending: Dr. Balderas Patient is a 70-year-old female who was admitted for your Pierce tract infection with fatigue over the past 2 months. She was referred to [facility] emergency department by Dr. Mccord from the clinic for worsening kidney function inasmuch as patient has an atrophic right kidney with mild to moderate hydronephrosis. Patient's baseline creatinine is 2.4. She was admitted with a creatinine of 3.29. Creatinine today is 2.89. Patient denies any hematuria. She has adequate urine output. She has no dysuria. She denies flank pain or CVA tenderness. No nausea or vomiting. No evidence of sepsis. Follows with Dr. Joel Valdez and Dr. Renato Williamson with urology at [facility] in [place], [place] Admitted 10/17/[address] Mccord's office with worsening renal failure and new right hydronephrosis. Patient is currently positive 5.6 L Vital Signs Temp 37.0 C 10/20/21 15:02 Pulse 65 10/20/21 15:02 Resp 18 10/20/21 15:02 BP 133/67 10/20/21 15:02 Pulse Ox 95 10/20/21 15:02 O2 Del Method 10/20/21 15:02 Intake & Output 10/19/21 10/20/21 10/20/21 18:59 06:59 18:59 Intake Total 1360 / 3255 1895 / 3255 625 / 625 Output Total 2400 / 2400 450 / 450 Balance 1360 / 855 -505 / 855 175 / 175 Intake: IV 999 / 0 1070 / 2070 415 / 415 Lactated Ringer's 1,000 ml @ 75 1000 / 1999 1000 / 1999 415 / 415 mls/hr IV .[id number] [facility] Rx#: [id number] cefTRIAXone SODIUM 2,000 mg In 70 / 70 Dextrose 5% 50 ml @ 140 mls/hr IV Q24H EV Rx#:[id number] Oral 360 / 1185 825 / 1185 210 / 210 Output: Urine 2400 / 2400 450 / 450 Review of Systems Review of Systems: A total of 10 systems was reviewed and is negative other than as listed in the HPI Physical Exam Physical Exam: GENERAL : No acute distress EYES: No icterus, gaze conjugate NOSE: No evidence of epistaxis MOUTH: No lesions or candidiasis NECK: Supple LUNGS: CTA B/L, no wheezes, rales or rhonchi HEART: Regular, rate controlled ABDOMEN: Soft, NT, ND, BS Present. No abdominal pain to palpation. No CVA tenderness EXTREMITIES: No LE edema, pedal pulses intact NEURO: A&OX3 Results & Data Results & Data ([facility]) Vital Signs (Past 12 Hours) Vital Signs Temp Pulse Resp BP Pulse Ox O2 Del Method 10/20/21 15:02 37.0 C 65 18 133/67 95 Room Air 10/20/21 11:11 36.8 C 69 18 166/82 H 93 Room Air 10/20/21 08:00 Room Air 10/20/21 07:47 37.5 C 69 18 149/74 H 94 Room Air Critical Care Results & Data Vital Signs (Past 12 Hours) Vital Signs Temp Pulse Resp BP Pulse Ox O2 Del Method 10/20/21 15:02 37.0 C 65 18 133/67 95 Room Air 10/20/21 11:11 36.8 C 69 18 166/82 H 93 Room Air 10/20/21 08:00 Room Air 10/20/21 07:47 37.5 C 69 18 149/74 H 94 Room Air Lab & Micro Results (Past 24 Hours) RBC 3.58 M/uL (3.93-5.22) L 10/20/21 WBC 5.79 K/ul (4.8-10.8) 10/20/21 Hgb 10.4 g/dl (12.0-16.0) L 10/20/21 Hct 32.2 % (34.1-44.9) L 10/20/21 MCV 89.9 fL (80.0-100.0) 10/20/21 MCH 29.1 pg (25.0-34.0) 10/20/21 MCHC 32.3 g/dL (32.0-36.0) 10/20/21 RDW Standard Deviation 47.5 fL (36.4-46.3) H 10/20/21 RDW Coefficient of Variation 14.4 % (11.5-14.5) 10/20/21 Plt Count 186 K/uL (130-400) 10/20/21 MPV 9.8 fL (9.4-12.3) 10/20/21 Neutrophils (%) (Auto) 66.9 % 10/20/21 Lymphocytes (%) (Auto) 21.4 % 10/20/21 Monocytes # (Auto) 0.46 K/uL (0.24-0.82) 10/20/21 Eosinophils # (Auto) 0.17 K/uL (0-0.50) 10/20/21 Immature Granulocyte % (Auto) 0.2 % 10/20/21 Neutrophils # (Auto) 3.87 K/uL (1.4-6.5) 10/20/21 Lymphocytes # (Auto) 1.24 K/uL (1.2-3.4) 10/20/21 Monocytes # (Auto) 0.46 K/uL (0.24-0.82) 10/20/21 Eosinophils # (Auto) 0.17 K/uL (0-0.50) 10/20/21 Basophils # (Auto) 0.04 K/uL (0-0.2) 10/20/21 Immature Granulocyte # (Auto) 0.01 K/uL (0.00-0.02) 2 Na 136 mmol/L (136-145) 10/20/21 K 3.6 mmol/L (3.5-5.1) 10/20/21 Cl 104 mmol/L (98-107) 10/20/21 CO2 22 mmol/L (21-32) 10/20/21 Anion Gap 10 (3-11) 10/20/21 BUN 26 mg/dl (6-23) H 10/20/21 Creatinine 2.89 mg/dl (0.6-1.2) H 10/20/21 Estimated GFR ( Amer) 18.3 ml/min 10/20/21 Estimated GFR (Non-Af Amer) 15.8 ml/min 10/20/21 BUN/Creatinine Ratio 9.0 (10-20) L 10/20/21 Glu 96 mg/dl (70-99(Fasting)) 10/20/21 Ca 9.4 mg/dl (8.5-10.1) 10/20/21 Calcium Level 9.4 mg/dl (8.5-10.1) 10/20/21 06:30 I & O Totals 24 Hours 10/19/21 10/20/21 10/21/21 06:59 06:59 06:59 Intake Total 3420.000 / 3420.000 3255 / 3255 625 / 625 Output Total 2400 / 2400 450 / 450 Balance 3420.000 / 3420.000 855 / 855 175 / 175 Cumulative 10/17/21 14:39 thru 10/20/21 13:40 Intake Total 8610.000 Output Total 2850 Balance 5760.000 RT Ventilator Mngmt (Last Documented) Ventilator Ordered Settings Respiratory Rate 18 10/20/21 15:02 Ventilator - PT Measurements Respiratory Rate 18 PG Care Time/CCT Total # of Minutes Spent Total Time Spent with Patient: Total time spent is greater than 50% in coordination of care (as documented) at patient's floor/unit and/or counseling patient:60 Coding Level of Care Code 66272 Subseq Hosp Care Lvl 3 (25 - SIGNIFICANT, SEPARATELY IDENTIFIABLE ) Diagnoses Ureteral stone with hydronephrosis N13.2 Acute kidney injury N17.9 UTI (urinary tract infection) N39.0 Retroperitoneal fibrosis N13.5 Renal mass N28.89 Right renal atrophy N26.1 Diabetes E11.9 Moderate to severe aortic stenosis I35.0 Hypertension I10 Gastroesophageal reflux disease K21.9 Gastroparesis K31.84 Psoriasis L40.9 Time Spent (min) 60 Comment 35 minutes with patient
[2021-10-20] MEDS: ROSUVASTATIN CALCIUM 5 MG TAB PO SCH (20:43)
[2021-10-20] MEDS: diphenhydrAMINE 50 MG/ML VIAL IV SCH (20:44)
[2021-10-20] MEDS: cefTRIAXone SODIUM 2,000 MG in DEXTROSE 5% 50 ML IV SCH (20:49)
[2021-10-20] MEDS: MELATONIN 3 MG TAB PO PRN (20:49)
[2021-10-21 06:28] LABS: Basophils # (auto) 0.03 K/uL (0-0.2); Basophils % (auto) 0.5 %; Eosinophils # (auto) 0.18 K/uL (0-0.50); Eosinophils % (auto) 3.2 %; Hematocrit (blood only) 32.2 % (34.1-44.9); Hemoglobin 10.3 g/dl (12.0-16.0); Immature Granulocytes # (auto) 0.02 K/uL (0.00-0.02); Immature Granulocytes % (auto) 0.4 %; Lymphocytes # (auto) 1.14 K/uL (1.2-3.4); Lymphocytes % (auto) 20.5 %; Mean Corpuscular Hemoglobin 28.9 pg (25.0-34.0); Mean Corpuscular Volume 90.2 fL (80.0-100.0); Mean Platelet Volume 9.8 fL (9.4-12.3); Monocytes # (auto) 0.45 K/uL (0.24-0.82); Monocytes % (auto) 8.1 %; Neutrophils # (auto) 3.74 K/uL (1.4-6.5); Neutrophils % (auto) 67.3 %; Platelet Count 181 K/uL (130-400); RDW Coefficient of Variation 14.5 % (11.5-14.5); RDW Standard Deviation 47.8 fL (36.4-46.3); Red Blood Count 3.57 M/uL (3.93-5.22); White Blood Count 5.56 K/ul (4.8-10.8)
[2021-10-21 07:14] LABS: BUN Creatinine Ratio 8.3 (10-20); Calcium 9.2 mg/dl (8.5-10.1); Creatinine Clr Calc Pharmacy 19.7 ml/min; Est GFR (African American) 15.8 ml/min; Est GFR (Non-African American) 13.6 ml/min; Potassium 3.8 mmol/L (3.5-5.1)
[2021-10-21] MEDS: INSULIN ASPART PER UNIT SC SCH ×4 (09:17→21:30)
[2021-10-21] MEDS: ASPIRIN 325 MG ECTAB PO SCH (09:19)
[2021-10-21] MEDS: dilTIAZem HCL 240 MG CAPCR PO SCH ×2 (09:20→21:22)
[2021-10-21] MEDS: DICLOFENAC SOD 1% GEL 100 GM TUBE EXT SCH ×4 (09:20→21:19)
[2021-10-21] MEDS: CYANOCOBALAMIN (B-12) 500 MCG TABLET PO SCH (09:20)
[2021-10-21] MEDS: FAMOTIDINE 40 MG TABLET PO SCH (09:20)
[2021-10-21] MEDS: carvediloL 12.5 MG TAB PO SCH ×2 (09:20→21:23)
[2021-10-21] MEDS: PANTOprazole 40 MG TAB PO SCH (09:21)
[2021-10-21] MEDS: GABAPENTIN 300 MG CAP PO SCH (09:21)
[2021-10-21] MEDS: HEPARIN SOD 5,000 UNIT/0.5 ML VIAL SQ SCH ×2 (09:21→21:16)
--- NOTE | 2021-10-21 09:34 | Nephrology Progress Note ---
Date of Service October 21, 2021 Assessment & Plan (1) Acute kidney injury: (2) UTI (urinary tract infection): (3) Right renal atrophy: (4) Ureteral stone with hydronephrosis: (5) Renal mass: (6) Acute dehydration: Plan MAURICIO. Baseline creatinine 1.5 mg/dL. Creatinine has been progressively rising since August. Glenis does have a propensity to some degree of prerenal physiology from dehydration. She also had a UTI. She has a history of recurrent E Coli UTI over the past few months. Thankfully, she has not had significant signs of infection and overall seems to be responding to antibiotic therapy well. Some improvement in kidney function was initially noted with antibiotics and IVF during hospitalization. However, creatinine has increased in past 24 hours -- following discontinuation of IVF. This suggests that a post obstructive process is also contributing. At minimum, the R ureteral stent will need to be changed. We also maintain a high degree of suspicion for progressive retroperitoneal fibrosis on the left. I will review the plan of care with urology. BP and volume status are acceptable. Electrolytes are normal. There is no emergent indication for dialysis. An additional 500 ml of LR will be provided to encourage urine output. Medications are appropriately dosed for kidney function. Glenis remains on IV ceftriaxone for E coli UTI. Admission and Anticipated Discharge Date Admission Date: October 17, 2021 Subjective No acute events overnight. Glenis feels reasonably well this AM. She does report some increased nausea and her appetite is slightly decreased. No vomiting or diarrhea. Denies any abdominal pain. She denies urinary symptoms. No fevers or chills. Remains very anxious regarding her condition. Review of Systems Review of Systems: All systems reviewed & are unremarkable except as noted in HPI & below Physical Exam Constitutional: well developed and + morbidly obese; no acute distress Eyes: no scleral abnormality and no corneal abnormality ENMT: Mouth: no oral mucosal abnormality and oral mucous membranes not dry Neck: normal visual inspection and trachea midline Respiratory: normal respiratory effort Auscultation: lungs clear to auscultation bilaterally Cardiovascular: Rate/Rhythm: regular rate Heart Sounds: normal S1 and normal S2 Extremities: no edema Musculoskeletal: Extremities: no cyanosis and no clubbing Skin: + turgor decreased; no lesions Neurologic: Motor/Sensory: no tremor and no asterixis Psychiatric: Orientation: alert and oriented x 3 Results & Data ([facility]) Vital Signs (Past 12 Hours) Vital Signs Temp Pulse Pulse Resp BP Pulse Ox Pulse Ox 10/21/21 07:22 36.7 C 62 18 145/74 H 95 10/21/21 07:22 95 10/21/21 07:18 64 10/21/21 03:46 36.9 C 72 18 133/76 92 10/21/21 01:52 70 10/20/21 23:04 36.7 C 77 18 178/92 H 92 O2 Del Method O2 Del Method 10/21/21 07:22 Room Air 10/21/21 07:22 Room Air 10/21/21 07:18 10/21/21 03:46 Room Air 10/21/21 01:52 10/20/21 23:04 Room Air Laboratory Results Laboratory Results - last 24 hr 10/20/21 10/20/21 10/20/21 11:30 16:33 20:06 WBC RBC Hgb Hct MCV MCH MCHC RDW Std Deviation RDW Coeff of Evin Plt Count MPV Immature Gran % (Auto) Neut % (Auto) Lymph % (Auto) Starke % (Auto) Eos % (Auto) Baso % (Auto) Neut # (Auto) Lymph # (Auto) Starke # (Auto) Eos # (Auto) Baso # (Auto) Immature Gran # (Auto) Sodium Potassium Chloride Carbon Dioxide Anion Gap BUN Creatinine Est Cr Clr Drug Dosing Est GFR ( Amer) Est GFR (Non-Af Amer) BUN/Creatinine Ratio Glucose POC Glucose 95 103 H 88 Calcium 10/21/21 10/21/21 10/21/21 06:02 06:02 07:24 WBC 5.56 RBC 3.57 L Hgb 10.3 L Hct 32.2 L MCV 90.2 MCH 28.9 MCHC 32.0 RDW Std Deviation 47.8 H RDW Coeff of Evin 14.5 Plt Count 181 MPV 9.8 Immature Gran % (Auto) 0.4 Neut % (Auto) 67.3 Lymph % (Auto) 20.5 Starke % (Auto) 8.1 Eos % (Auto) 3.2 Baso % (Auto) 0.5 Neut # (Auto) 3.74 Lymph # (Auto) 1.14 L Starke # (Auto) 0.45 Eos # (Auto) 0.18 Baso # (Auto) 0.03 Immature Gran # (Auto) 0.02 Sodium 134 L Potassium 3.8 Chloride 101 Carbon Dioxide 22 Anion Gap 11 BUN 27 H Creatinine 3.27 H D Est Cr Clr Drug Dosing 19.7 Est GFR ( Amer) 15.8 Est GFR (Non-Af Amer) 13.6 BUN/Creatinine Ratio 8.3 L Glucose 98 POC Glucose 100 H Calcium 9.2 PG Care Time/CCT Total # of Minutes Spent Total Time Spent with Patient: Total time spent is greater than 50% in coordination of care (as documented) at patient's floor/unit and/or counseling patient: Coding Level of Care Code 86320 Subseq Hosp Care Lvl 3 Diagnoses Acute kidney injury N17.9 UTI (urinary tract infection) N39.0 Right renal atrophy N26.1 Ureteral stone with hydronephrosis N13.2 Renal mass N28.89 Acute dehydration E86.0
[2021-10-21] MEDS ORDERED: LACTATED RINGER'S 500 ML IV ONE (09:44)
--- NOTE | 2021-10-21 12:34 | Urology Progress Note ---
Date of Service October 21, 2021 Assessment & Plan (1) Right renal atrophy: (2) Acute kidney injury: (3) Ureteral stone with hydronephrosis: (4) UTI (urinary tract infection): Plan: MAURICIO in the setting of retroperitoneal fibrosis and chronic right ureteral stent for obstructed right kidney. - Patient subjectively doing well. - She remains afebrile, hemodynamically stable. No flank pain. - IVF discontinued yesterday. Creatinine increased to 3.27 today and IVF restarted. - Urine culture grew out E. coli, she has been on IV Ceftriaxone since admission. - Several possible underlying etiologies of her MAURICIO including prerenal, possible obstruction from progressive retroperitoneal fibrosis. - After discussion with patient and family today, they would like to have the right stent exchanged here if possible. - She may eventually need intervention on the left to ensure appropriate drainage if kidney function deteriorates/plateaus. - She prefers to discuss options for left side with her established urologist, Dr. Valdez. - If it is obstructive from retroperitoneal fibrosis, nephrostomy tube may be the ultimate solution as stents are highly likely to fail. - Case discussed with Dr. Hare. Will make patient NPO at [facility] for possible right stent exchange tomorrow. - Continue supportive care, antibiotics, and management per primary service. - will continue to follow. Admission and Anticipated Discharge Date Admission Date: October 17, 2021 Subjective Patient seen at bedside. and daughter present. No acute issues overnight. No abdominal or flank pain. Low appetite, occasional nausea, no vomiting. She is voiding without difficulty. No fever or chills. She would like her right stent exchanged here if possible. Review of Systems Constitutional: as per Subjective / HPI Respiratory: no dyspnea Cardiovascular: no chest pain Gastrointestinal: as per Subjective / HPI Genitourinary: as per Subjective / HPI Physical Exam Constitutional: + obese; no acute distress Respiratory: no respiratory distress and no labored breathing Gastrointestinal (Abdomen): Inspection/Auscultation: abdomen normal to inspection; abdomen not distended Percussion/Palpation: abdomen soft; abdomen nontender and no guarding Musculoskeletal: Head/Neck/Chest: normocephalic and head atraumatic Neurologic: moves all extremities and awake Psychiatric: Orientation: alert and oriented x 3 Genitourinary: no CVA tenderness Results & Data ([facility]) Vital Signs (Past 12 Hours) Vital Signs Temp Pulse Pulse Resp BP Pulse Ox Pulse Ox 10/21/21 11:00 18 144/75 H 94 10/21/21 07:22 36.7 C 62 18 145/74 H 95 10/21/21 07:22 95 10/21/21 07:18 64 10/21/21 03:46 36.9 C 72 18 133/76 92 10/21/21 01:52 70 O2 Del Method O2 Del Method 10/21/21 11:00 10/21/21 07:22 Room Air 10/21/21 07:22 Room Air 10/21/21 07:18 10/21/21 03:46 Room Air 10/21/21 01:52 PG Care Time/CCT Total # of Minutes Spent Total Time Spent with Patient: Total time spent is greater than 50% in coordination of care (as documented) at patient's floor/unit and/or counseling patient: Coding Level of Care Code 61435 Subseq Hosp Care Lvl 2 Diagnoses Right renal atrophy N26.1 Acute kidney injury N17.9 Ureteral stone with hydronephrosis N13.2 UTI (urinary tract infection) N39.0
--- NOTE | 2021-10-21 15:41 | Hospitalist Progress Note ---
Date of Service October 21, 2021 Assessment & Plan (1) Ureteral stone with hydronephrosis: Plan: Laboratory Tests 10/21/21 06:02 Creatinine 3.27 H D History of right ureteral stricture managed with a chronic right ureteral stent since 1994. She follows with [facility] urology ( Dr. Joel Valdez) and has stents exchanged every 6 months, last performed 07/01/2021. [facility] He is recommending replacement of right ureteral stent. As creatinine starts to come down she can be discharged and follow-up with his office Urology consultation appreciated. We will plan on right stent replacement tomorrow with Dr. Hare in the operating room (2) Acute kidney injury: Plan: Improving slowly with IV fluids. Creatinine down to 3.27 today. Continue IV fluids per nephrology. Currently treating treat UTI with ceftriaxone. Monitor intake and output. Appreciate nephrology consultation (3) UTI (urinary tract infection): Plan: E. coli isolated. Continue intravenous Rocephin, day 5. Plan on stent replacement on the right tomorrow Blood cultures negative to date. 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 The patient's last stent exchange was 07/01/2021 [facility] urology will follow as an outpatient on discharge Will most likely need split study to determine function of left kidney and whether a stent is needed on the left (5) Renal mass: Plan: Seen by Dr. Renato Williamson 10/06/2021. Patient was seen in the clinic for follow-up abdomen newly discovered 1.9 cm enhancing right upper pole renal mass with significantly atrophic right kidney with CT of the abdomen pelvis on 08/2021 The patient has no gross hematuria dysuria or flank pain Unclear etiology or malignant status. Per review of the note, up to 30% of renal masses less than 4 cm are benign It was suggested that the patient undergo renal scan to determine split function, as these results would impact recommendations for possible surgical intervention vs MRI imaging in 1 year Routine urology consult placed this admission recommends continued observation with no intervention at this time. Any intervention would be managed by [facility] Bobby (6) Right renal atrophy: Plan: Split function 10+ years ago revealed 25% function. Further management with Dr. Valdez at [facility] (7) Diabetes: Plan: Recently taken off metformin due to worsening renal function. Ozempic injections weekly, last received on 10/16. Hold Ozempic while inpatient, continue SSI with Accuchecks ACHS. Continue gabapentin 300 mg daily for neuropathy. (8) Moderate to severe aortic stenosis: Plan: Seen by cardiology last month. Echo from July showed moderate-severe with EF 50-55% Aortic valve area at 1.0 cm2 Judicious use of IV fluids (9) Hypertension: Plan: Continue carvedilol 12.5 mg BID, diltiazem 240 mg daily. (10) Gastroesophageal reflux disease: Plan: Continue Protonix 40 mg daily. (11) Gastroparesis: Plan: History of gastroparesis Scheduled for gastric emptying scan next month Is not on any motility agents No current complaints of nausea/vomiting although she has had this in the past Tolerating diet well (12) Psoriasis: Plan: Treated with clobetasol cream prn, triamcinolone cream prn. Plan Right ureteral stent replacement tomorrow with Dr. Hare As creatinine begins to drift downward, we can plan on discharge with follow-up in [place]. Admission and Anticipated Discharge Date Admission Date: October 17, 2021 Supervising Physician Co-Signing Physician Notes chart reviewed and case d/w E Ami PAC - as above Subjective Attending: Dr. Vargas Patient seen examined in room 281 bed 2 with her son and [id number]. At this time patient is doing well. Her creatinine did increase again today and is over 3. Discussed with Dr. Monique from nephrology as well as urology options for stent replacement on the right. Also discussed option for stent placement on the left. At this time we will plan on stent replacement tomorrow with Dr. Hare in the operating room Patient denies any fever, chills, sweats, rigors. No shortness of breath. No cough. No hematuria. No abdominal pain. No back pain today. No acute complaints Review of Systems Review of Systems: A total of 10 systems was reviewed and is negative other than as listed in the HPI Physical Exam Physical Exam: GENERAL : No acute distress EYES: No icterus, gaze conjugate NOSE: No evidence of epistaxis MOUTH: No lesions or candidiasis NECK: Supple LUNGS: CTA B/L, no wheezes, rales or rhonchi HEART: Regular, rate controlled ABDOMEN: Soft, NT, ND, BS Present BACK: No CVA tenderness EXTREMITIES: No LE edema, pedal pulses intact NEURO: A&OX3 Results & Data Results & Data ([facility]) Vital Signs (Past 12 Hours) Vital Signs Temp Pulse Pulse Resp BP Pulse Ox Pulse Ox 10/21/21 11:00 18 144/75 H 94 10/21/21 07:22 36.7 C 62 18 145/74 H 95 10/21/21 07:22 95 10/21/21 07:18 64 10/21/21 03:46 36.9 C 72 18 133/76 92 O2 Del Method O2 Del Method 10/21/21 11:00 10/21/21 07:22 Room Air 10/21/21 07:22 Room Air 10/21/21 07:18 10/21/21 03:46 Room Air Critical Care Results & Data Vital Signs (Past 12 Hours) Vital Signs Temp Pulse Pulse Resp BP Pulse Ox Pulse Ox 10/21/21 11:00 18 144/75 H 94 10/21/21 07:22 36.7 C 62 18 145/74 H 95 10/21/21 07:22 95 10/21/21 07:18 64 10/21/21 03:46 36.9 C 72 18 133/76 92 O2 Del Method O2 Del Method 10/21/21 11:00 10/21/21 07:22 Room Air 10/21/21 07:22 Room Air 10/21/21 07:18 10/21/21 03:46 Room Air Lab & Micro Results (Past 24 Hours) RBC 3.57 M/uL (3.93-5.22) L 10/21/21 WBC 5.56 K/ul (4.8-10.8) 10/21/21 Hgb 10.3 g/dl (12.0-16.0) L 10/21/21 Hct 32.2 % (34.1-44.9) L 10/21/21 MCV 90.2 fL (80.0-100.0) 10/21/21 MCH 28.9 pg (25.0-34.0) 10/21/21 MCHC 32.0 g/dL (32.0-36.0) 10/21/21 RDW Standard Deviation 47.8 fL (36.4-46.3) H 10/21/21 RDW Coefficient of Variation 14.5 % (11.5-14.5) 10/21/21 Plt Count 181 K/uL (130-400) 10/21/21 MPV 9.8 fL (9.4-12.3) 10/21/21 Neutrophils (%) (Auto) 67.3 % 10/21/21 Lymphocytes (%) (Auto) 20.5 % 10/21/21 Monocytes # (Auto) 0.45 K/uL (0.24-0.82) 10/21/21 Eosinophils # (Auto) 0.18 K/uL (0-0.50) 10/21/21 Immature Granulocyte % (Auto) 0.4 % 10/21/21 Neutrophils # (Auto) 3.74 K/uL (1.4-6.5) 10/21/21 Lymphocytes # (Auto) 1.14 K/uL (1.2-3.4) L 10/21/21 Monocytes # (Auto) 0.45 K/uL (0.24-0.82) 10/21/21 Eosinophils # (Auto) 0.18 K/uL (0-0.50) 10/21/21 Basophils # (Auto) 0.03 K/uL (0-0.2) 10/21/21 Immature Granulocyte # (Auto) 0.02 K/uL (0.00-0.02) 2 Na 134 mmol/L (136-145) L 10/21/21 K 3.8 mmol/L (3.5-5.1) 10/21/21 Cl 101 mmol/L (98-107) 10/21/21 CO2 22 mmol/L (21-32) 10/21/21 Anion Gap 11 (3-11) 10/21/21 BUN 27 mg/dl (6-23) H 10/21/21 Creatinine 3.27 mg/dl (0.6-1.2) H 10/21/21 Estimated GFR ( Amer) 15.8 ml/min 10/21/21 Estimated GFR (Non-Af Amer) 13.6 ml/min 10/21/21 BUN/Creatinine Ratio 8.3 (10-20) L 10/21/21 Glu 98 mg/dl (70-99(Fasting)) 10/21/21 Ca 9.2 mg/dl (8.5-10.1) 10/21/21 Calcium Level 9.2 mg/dl (8.5-10.1) 10/21/21 06:02 I & O Totals 24 Hours 10/20/21 10/21/21 10/22/21 06:59 06:59 06:59 Intake Total 3255 / 3255 1055 / 1055 500 / 500 Output Total 2400 / 2400 1999 / 1999 400 / 400 Balance 855 / 855 -945 / -945 100 / 100 Cumulative 10/17/21 14:39 thru 10/21/21 14:40 Intake Total 9540.000 Output Total 4800 Balance 4740.000 RT Ventilator Mngmt (Last Documented) Ventilator Ordered Settings Respiratory Rate 18 10/21/21 11:00 Ventilator - PT Measurements Respiratory Rate 18 PG Care Time/CCT Total # of Minutes Spent Total Time Spent with Patient: Total time spent is greater than 50% in coordination of care (as documented) at patient's floor/unit and/or counseling patient: Coding Level of Care Code 70369 Subseq Hosp Care Lvl 2 Diagnoses Ureteral stone with hydronephrosis N13.2 Acute kidney injury N17.9 UTI (urinary tract infection) N39.0 Retroperitoneal fibrosis N13.5 Renal mass N28.89 Right renal atrophy N26.1 Diabetes E11.9 Moderate to severe aortic stenosis I35.0 Hypertension I10 Gastroesophageal reflux disease K21.9 Gastroparesis K31.84 Psoriasis L40.9
[2021-10-21] MEDS: ROSUVASTATIN CALCIUM 5 MG TAB PO SCH (21:22)
[2021-10-21] MEDS: diphenhydrAMINE 50 MG/ML VIAL IV SCH (23:26)
[2021-10-21] MEDS: cefTRIAXone SODIUM 2,000 MG in DEXTROSE 5% 50 ML IV SCH (23:28)
[2021-10-22] MEDS ORDERED: INSULIN ASPART PER UNIT SC SCH ×2 (05:30→12:00)
[2021-10-22] MEDS: PANTOprazole 40 MG TAB PO SCH (08:30)
[2021-10-22] MEDS: carvediloL 12.5 MG TAB PO SCH ×2 (08:30→20:03)
[2021-10-22] MEDS: CYANOCOBALAMIN (B-12) 500 MCG TABLET PO SCH (08:30)
[2021-10-22] MEDS: dilTIAZem HCL 240 MG CAPCR PO SCH ×2 (08:31→20:05)
[2021-10-22] MEDS: DICLOFENAC SOD 1% GEL 100 GM TUBE EXT SCH ×4 (08:31→20:05)
[2021-10-22] MEDS: GABAPENTIN 300 MG CAP PO SCH (08:31)
[2021-10-22] MEDS: ASPIRIN 325 MG ECTAB PO SCH (08:31)
[2021-10-22] MEDS: FAMOTIDINE 40 MG TABLET PO SCH (08:31)
[2021-10-22] MEDS: HEPARIN SOD 5,000 UNIT/0.5 ML VIAL SQ SCH ×2 (08:31→20:08)
[2021-10-22 09:15] LABS: Albumin Level 4.2 gm/dl (3.4-5.0); BUN Creatinine Ratio 8.9 (10-20); Calcium 9.3 mg/dl (8.5-10.1); Creatinine Clr Calc Pharmacy 19.7 ml/min; Est GFR (African American) 15.8 ml/min; Est GFR (Non-African American) 13.7 ml/min; Phosphorus 4.6 mg/dl (2.5-4.9); Potassium 3.9 mmol/L (3.5-5.1)
[2021-10-22] MEDS ORDERED: PROPOFOL IV EMULSION 10 MG/ML 20 ML VIAL IV ONE (09:19)
[2021-10-22] MEDS ORDERED: ONDANSETRON INJ 2 MG/ML 2 ML VIAL ONE (09:19)
[2021-10-22] MEDS ORDERED: fentaNYL citrate 100 MCG/2 ML VIAL ONE (09:19)
[2021-10-22] MEDS ORDERED: ETOMIDATE 2 MG/ML 20 ML VIAL IV ONE (09:39)
--- NOTE | 2021-10-22 09:51 | Urology Progress Note ---
Date of Service October 22, 2021 Assessment & Plan (1) Right renal atrophy: (2) Acute kidney injury: (3) Ureteral stone with hydronephrosis: Plan Risks and benefits discussed at length for procedure. These include bleeding, infection, injury to surrounding tissues or organs, and risks associated with anesthesia. Patient states understanding and agrees to proceed. Will sign consent and prtoceed Anesthesia is having an extensive conversation with family. Have previously discussed different options and risks and benefits of surgical exchange and possible retrograde pyelogram and stent on the left. Have discussed extensively with the nephrology team. Had a long conversation yesterday about different options with myself and Dr. Monique with nephrology. Patient has severely atrophic right kidney with stones and chronic stent. At this point is difficult to ascertain how much function he is coming from that right kidney patient was post to have some sort of testing on it in the near future to assess function of the kidney. Patient has been having stent excha nges for nearly 30 years due to retroperitoneal fibrosis. Has per documentation from the [facility] urology team not had considerable issues with stent exchanges in the past. Did discuss this at length with patient. Did discuss that this may not drastically improve her renal function.Patient renal function initially had been improving and is now considerably worse with worsening issues and concern for increasing illness. Patient has undergone antibiotic management and therapy to remove chance of possible MAURICIO from pyelonephritis or UTI. Patient has been working on hydration. IV hydration has been gently reinitiated without a considerable improvement. Greater than 75 minutes in discussion with patient, anesthesia, family, and coordinating care as well as setting patient up for intervention with conversation of risk and benefits. Discussed that there may be obstructive issues occurring on the left side and we will plan to assess it at the same time. Plan for cystoscopy with possible bilateral retrograde pyelograms and stent placement. Admission and Anticipated Discharge Date Admission Date: October 17, 2021 Subjective Patient admitted with Significant MAURICIO with long history of chronic kidney disease from retroperitoneal fibrosis with chronic stents that have been changed for almost 30 years on an every 3 to 6-month basis. Patient is afebrile. Has been undergoing Conservative management and therapy with oral medications, IV medications, IV fluids, and oral intake. Has been dealing with minor nausea and feelings But no severe vomiting or other issues. Has not experienced fever or chills. Has been tolerating oral medications. Patient was made n.p.o. due to a sudden increase in her creatinine and decrease in renal function starting yesterday. At that point she had been improving. Unsure of what exactly changed other than the patient had been stopped on her IV fluids. Has been taking p.o. fluids without major issue. Had admission been dealing with some significant nausea that had limited hydration. Previously had spoke extensively with her urologist in [place] through the hospitalist team. They had recommended consideration of stent exchange though the kidney on the right is severely atrophic and has a number of stones along the ureter has always been a easy stent change. Is tolerating fluids. Has noticed some frequency and urgency. Has not had severe pain in the back and flank. Does have occasional burning and irritation. No severe episodes or major changes. Have previously discussed with the hospitalist team the food and beverage controller, and the additional urologic team. Plan had been to allow time for possible resolution however as patient now has continued issues with elevated creatinine and discussion was initiated about possible stent exchange. Patient was agreeable. Has a number of issues with allergies to medications and has a very complicated anesthetic plan that she completes with her [facility] urology and anesthesia team. We will work towards getting this set up. Review of Systems Review of Systems: All systems reviewed & are unremarkable except as noted in HPI & below Physical Exam Physical Exam: General: Alert in no acute distress. HEENT: Normocephalic Atraumatic. Inspection normal. Cranial Nerves 2-12 Grossly intact. Normal inspection of face. Normal inspection of neck. Psychologic: Normal affect. Respiratory: Nonlabored. No use of accessory muscles. No tachypnea or dyspnea. Cardiovascular: No tachycardia Skin: [place] and Dry. No rashes or visible lesions. Extremities/Lymphatics: No edema Abdomen: Morbidly obese No rebound or guarding. Results & Data ([facility]) Vital Signs (Past 12 Hours) Vital Signs Temp Pulse Pulse Resp BP BP Pulse Ox 10/22/21 07:35 37.0 C 64 120/62 93 10/22/21 07:00 10/22/21 03:49 36.7 C 65 18 178/72 H 93 10/22/21 01:14 71 10/21/21 22:49 36.6 C 69 18 169/83 H 90 Pulse Ox O2 Del Method 10/22/21 07:35 Room Air 10/22/21 07:00 98 10/22/21 03:49 Room Air 10/22/21 01:14 10/21/21 22:49 Room Air PG Care Time/CCT Total # of Minutes Spent Total Time Spent with Patient: Total time spent is greater than 50% in coordination of care (as documented) at patient's floor/unit and/or counseling patient: Coding Level of Care Code 17048 Subseq Hosp Care Lvl 3 Diagnoses Right renal atrophy N26.1 Acute kidney injury N17.9 Ureteral stone with hydronephrosis N13.2
[2021-10-22] MEDS ORDERED: ATROPINE SULFATE 0.1 MG/ML 10ML SYR IV PRN (09:52)
[2021-10-22] MEDS ORDERED: ePHEDrine sulfate 50 MG/ML AMP IV PRN (09:52)
[2021-10-22] MEDS ORDERED: ONDANSETRON INJ 2 MG/ML 2 ML VIAL IV PRN (09:52)
[2021-10-22] MEDS ORDERED: fentaNYL citrate 100 MCG/2 ML VIAL IV PRN (09:52)
--- NOTE | 2021-10-22 09:52 | Anesthesiology Consultation ---
Date of Service October 22, 2021 Assessment & Plan ASA ASA4 Proposed Anesthesia Anesthesia Type: General Risk / Benefits Reviewed With: PT / POA / Parent / Guardian, Accepts Plan and Informed Consent Obtained Additional Comments: pt family swent her prewvious medlist to me via email. i have reviewed it with the lever tender. etomidate, fentanyl, and zofran are all ok per regiment along with pressor support. pt had an LMA last time. History Surgery Operation Date: 10/22/21 10:00 Proposed Procedures p Ureteral Stent Insertion/Removal - Jaycob Hare DO s Cystoscopy - Jaycob Hare DO Height/Weight Height: 5 ft 4 in Weight: 112.7 kg Allergies Allergy/AdvReac Type Severity Reaction Status Date / Time amoxicillin Allergy Intermediate Hives Verified 10/17/21 18:01 fluconazole Allergy Mild HIVES Verified 10/17/21 18:01 cephalexin Allergy Unknown hives, Unverified 10/17/21 18:01 itchy hydrochlorothiazide Allergy Unknown DYAZIDE-KIRSTIN Verified 10/17/21 18:01 H nifedipine Allergy Unknown RASH Verified 10/17/21 18:01 nitrofurantoin Allergy Unknown RASH Verified 10/17/21 18:01 olmesartan Allergy Unknown GI UPSET, Verified 10/17/21 18:01 WEIGHT LOSS Sulfa (Sulfonamide Allergy Unknown RASH Verified 10/17/21 18:01 Antibiotics) triamterene Allergy Unknown DYAZIDE-KIRSTIN Verified 10/17/21 18:01 H Penicillins Allergy Unknown Unverified 10/17/21 18:04 Medications Home Medications Medication Instructions Recorded Confirmed Last Taken lancets 33 gauge (OneTouch Delica #100 ea 11/11/18 10/10/21 Unknown Lancets) multivitamin (Multiple Vitamins 1 tab PO DAILY 11/11/18 10/17/21 Unknown tablet) omega-3 acid ethyl esters 1 gram 1 cap PO DAILY 11/11/18 10/17/21 Unknown capsule cranberry 400 mg capsule 400 mg PO DAILY #30 caps 07/07/19 10/17/21 06/26/21 melatonin 10 mg capsule 10 mg PO HS PRN sleep #30 caps 07/07/19 10/17/21 Unknown Diabetic Shoes #1 ea 08/12/19 10/10/21 Unknown triamcinolone acetonide 0.1 % 1 applic topical UD #30 grams 12/23/19 10/17/21 Unknown topical cream albuterol sulfate 90 mcg/actuation 1 inh inhalation QID PRN shortness 07/03/20 10/17/21 Unknown aerosol inhaler (ProAir HFA) of breath or wheezing #8 grams mecobalamin (vitamin B12) 1,000 1,000 mcg PO DAILY #30 tabs 08/11/20 10/17/21 Unknown mcg chewable tablet diclofenac sodium 1 % topical gel 2 g topical QID #300 grams 11/12/20 10/17/21 06/26/21 semaglutide 0.25 mg or 0.5 mg (2 0.5 mg (0.4 mL) subcut WEEKLY 05/02/21 10/17/21 Unknown mg/1.5 mL) subcutaneous pen E11.8 #3 mL injector diltiazem HCl 240 mg capsule,24 240 mg PO BID #60 caps 05/13/21 10/17/21 06/26/21 hr,extended release clobetasol 0.05 % topical foam 1 applic topical HS PRN Skin 06/26/21 10/17/21 Unknown Irritation cyanocobalamin (vitamin B-12) 100 mcg PO DAILY 06/26/21 10/17/21 06/25/21 diphenhydramine HCl 25 mg capsule 25 mg PO Q12H PRN Other 06/26/21 10/17/21 Unknown glucosamine sulf dipot 1 cap PO BID 06/26/21 10/17/21 06/26/21 chlr,msm,chond 550 mg-C 30 mg-pita 1 mg capsule (Glucosamine Chondroitin) nitrofurantoin macrocrystal 100 mg 100 mg PO BID #14 caps 09/06/21 10/17/21 Unknown capsule pantoprazole 40 mg tablet,delayed 40 mg PO DAILY #30 tabs 09/06/21 10/17/21 Unknown release rosuvastatin 5 mg tablet 5 mg PO HS #30 tabs 09/06/21 10/17/21 Unknown aspirin 325 mg tablet 325 mg PO DAILY #30 tabs 09/12/21 10/17/21 Unknown leflunomide 10 mg tablet 10 mg PO DAILY 09/14/21 10/17/21 Unknown potassium citrate 10 mEq (1,080 10 meq PO TID #90 tabs 10/04/21 10/17/21 Unknown mg) tablet,extended release carvedilol 12.5 mg tablet 12.5 mg PO BID #60 tabs 10/10/21 10/17/21 Unknown gabapentin 300 mg capsule 300 mg PO DAILY #90 caps 10/11/21 10/17/21 Unknown nystatin 100,000 unit/mL oral 5 ml buccal QID 10/17/21 10/17/21 Unknown suspension Active Medications Generic Name Dose Route Start Last Admin Trade Name Justice PRN Reason Stop Dose Admin Aspirin 325 mg 10/18/21 09:00 10/22/21 08:31 Aspirin 325 Mg Ectab PO 11/17/21 08:59 325 mg DAILY EV Administration Carvedilol 12.5 mg 10/17/21 21:00 10/22/21 08:30 Carvedilol 12.5 Mg Tab PO 11/16/21 20:59 12.5 mg BID EV Administration Cyanocobalamin 1,000 mcg 10/18/21 09:00 10/22/21 08:30 Cyanocobalamin (B-12) 500 Mcg Tablet PO 11/17/21 08:59 1,000 mcg DAILY EV Administration Diclofenac Sodium 2 gm 10/17/21 21:00 10/22/21 08:31 Diclofenac Sod 1% Gel 100 Gm Tube EXT 11/16/21 20:59 2 gm QID EV Administration Protocol Diltiazem HCl 240 mg 10/17/21 21:00 10/22/21 08:31 Diltiazem Hcl 240 Mg Capcr PO 11/16/21 20:59 240 mg BID EV Administration Diphenhydramine HCl 12.5 mg 10/17/21 22:00 10/21/21 23:26 Diphenhydramine 50 Mg/Ml Vial IV 11/16/21 21:59 12.5 mg Q24H EV Administration Famotidine 40 mg 10/19/21 19:45 10/22/21 08:31 Famotidine 40 Mg Tablet PO 11/18/21 19:44 40 mg QAM EV Administration Gabapentin 300 mg 10/18/21 09:00 10/22/21 08:31 Gabapentin 300 Mg Cap PO 11/17/21 08:59 300 mg DAILY EV Administration Heparin Sodium (Porcine) 5,000 units 10/18/21 21:00 10/22/21 08:31 Heparin Sod 5,000 Unit/0.5 Ml Vial SQ 11/17/21 20:59 5,000 units Q12 EV Administration Ceftriaxone Sodium 2,000 mg/ 70 mls @ 140 mls/hr 10/17/21 22:00 10/22/21 00:23 Dextrose IV 10/27/21 21:59 Infused Q24H EV Infusion Melatonin 18 mg 10/19/21 20:35 10/20/21 20:49 Melatonin 3 Mg Tab PO 11/16/21 21:16 18 mg HS PRN Administration sleep Miscellaneous 1 each 10/18/21 00:00 10/22/21 07:25 Clobetasol 0.05% Foam - Order Awaiting Action N/A 11/17/21 00:00 Not Given QS EV Ondansetron HCl 4 mg 10/17/21 20:34 10/20/21 20:49 Ondansetron Inj 2 Mg/Ml 2 Ml Vial IV 11/16/21 20:33 4 mg Q6H PRN Administration Nausea Pantoprazole Sodium 40 mg 10/18/21 09:00 10/22/21 08:30 Pantoprazole 40 Mg Tab PO 11/17/21 08:59 40 mg DAILY EV Administration Polyethylene Glycol 17 gm 10/17/21 20:34 10/19/21 20:27 Polyethylene (Miralax) 17 Gm Pack PO 11/16/21 20:33 17 gm DAILY PRN Administration Constipation Rosuvastatin Calcium 5 mg 10/17/21 21:00 10/21/21 21:22 Rosuvastatin Calcium 5 Mg Tab PO 11/16/21 20:59 5 mg HS EV Administration NPO Date Last Intake of Fluids: 10/21/21 Time Last Intake of Fluids: 18:00 Last Intake of Fluids Comment: sip this am with medications Date Last Intake of Solids: 10/21/21 Time Last Intake of Solids: 18:00 Past Medical History Medical History Acute hyponatremia Acute kidney injury Acute UTI MAURICIO (acute kidney injury) Anticardiolipin antibody positive Diabetes mellitus with complication in adult patient Diabetic retinopathy Diverticulosis Fatigue Gastroesophageal reflux disease Gastroparesis Hives Hypercalcemia Hyperlipidemia Hypertension Hyponatremia Lumbar radiculopathy Morbid obesity Nephrolithiasis Osteoarthritis of knee Osteopenia Psoriasis Pulmonary nodules/lesions, multiple Retroperitoneal fibrosis Spinal stenosis Vitamin D deficiency Vitiligo Exercise / Class Metabolic Activity II 4-5 Yardwork/Stairs/Walk up hill Past Family History Family History Aunt Breast cancer Grandmother (Maternal) No problems noted. Father Myocardial infarction Prostate cancer Mother Ovarian cancer Denies family history of Coronary heart disease Colorectal cancer Past Surgical History Surgical History H/O lumpectomy Left breast 2002 Status post laparoscopic cholecystectomy Status post placement of ureteral stent Right ureteral stent Past Anesthesia History No Hx of Anesthesia Complications and No Family Hx of Anesthesia Complications History of PONV No Hx of PONV and No Hx of Motion Sickness Social History Smoking Status: Never smoker Hx Alcohol Use: No Hx Substance Use: No substance use type: does not use Review of Systems denies fever/cough/ colds/ chest pain/ SOB/ BRITTANY denies BRITTANY Physical Exam Vital Signs Last Vital Signs Temp 37.0 C 10/22/21 07:35 Pulse 64 10/22/21 07:35 Resp 18 10/22/21 03:49 BP 120/62 10/22/21 07:35 Pulse Ox 93 10/22/21 07:35 O2 Del Method 10/22/21 07:35 ENMT Mouth: no TMJ abnormality and no dentition abnormality Thyromental Distance: > or= 3.5 Finger Breadths Mallampati Class: II Neck neck extension not limited Respiratory normal respiratory effort; no respiratory distress Auscultation: lungs clear to auscultation bilaterally Cardiovascular Rate/Rhythm: regular rate and regular rhythm Neurologic moves all extremities Psychiatric Orientation: alert and oriented x 3 Testing Laboratory Results 10/21/21 06:02 10/22/21 08:22 Urine Color Yellow 10/17/21 17:30 Urine Appearance Clear (Clear) 10/17/21 17:30 Urine pH 7.5 (4.5-7.5) 10/17/21 17:30 Ur Specific [place] 1.005 (1.000-1.030) 10/17/21 17:30 Urine Protein Trace (Negative) H 10/17/21 17:30 Urine Glucose (UA) Negative (Negative) 10/17/21 17:30 Urine Ketones Negative (Negative) 10/17/21 17:30 Urine Nitrite Negative (Negative) 10/17/21 17:30 Ur Leukocyte Esterase 2+ (Negative) H 10/17/21 17:30 Urine WBC (Auto) 10-30 /hpf (0-5) H 10/17/21 17:30 Urine RBC (Auto) 0-4 /hpf (0-4) 10/17/21 17:30 U Hyaline Cast (Auto) 0 /lpf (0-5) 10/17/21 17:30 U Epithel Cells (Auto) 10-20 /lpf (0-5) H 10/17/21 17:30 Urine Bacteria (Auto) 3+ (Negative) H 10/17/21 17:30 10/17/21 17:30 Urine Culture - Final Urine,Clean Catch Escherichia coli 10/22/21 10/22/21 07:37 05:30 POC Glucose 119 H 102 H
[2021-10-22] MEDS ORDERED: DIATRIZOATE MEGLUMINE 30% 100ML VIAL INSTIL ONE (10:20)
--- NOTE | 2021-10-22 10:26 | Operative Report ---
PG Post Operative Report Pre & Post Diagnosis Operation Date: 10/22/21 10:00 Pre-Op Diagnosis: (1) Right renal atrophy: (2) Acute kidney injury: (3) Ureteral stone with hydronephrosis: Post-Op Diagnosis: (1) Right renal atrophy: (2) Acute kidney injury: (3) Ureteral stone with hydronephrosis: I identified the patient and participated in the time-out.: Yes Procedure Operation Date: 10/22/21 10:00 Actual Procedures p Cystoscopy with Bilateral Retrograde pyelogram and Right Ureteral Stent Exchange - Jaycob Hare DO Surgeon Jaycob Hare, II, DO Pulp Making Plant Operator None Estimated Blood Loss 1 Findings Consistent with Post-Op Diagnosis Right Stent exchanged and placed in good position. Moderate hydronephrosis noted in the right kidney. Stones along the right ureter. No filling defects or hydronephrosis noted on the left. On drainage films the left kidney drained completely without issue. Moderate irritation throughout the base of bladder Specimens None Drains 6 Fr x 24 stent on Right Anesthesia Type General Complications none Disposition Disposition: Recovery Room Indications Patient with obstruction with chronic stent changes. Patient presented with MAURICIO that started to resolve but then reoccurred. Patient has long history of chronic obstructive issues with atrophic right kidney. Long conversation between nephrology, patient's primary urology, hospitalist, and our urology team discussed options and elected for exchange of right stent and assessment of left side. Risks and benefits discussed at length. Description of Procedure Patient was consented and brought back to the operating room. Patient was placed under anesthesia in the supine position and moved to the dorsal lithotomy position. Patient was prepped and draped in the regular sterile fashion. A time out was completed. A 30degree Cystoscope was placed into the bladder and the entire bladder was examined. The UO's were identified. Patient was noted to have moderate irritation throughout the base of the bladder. The right stent was appreciated and appeared to have some debris on the stent itself. No major signs of calcifications. No considerable obstruction. A retrograde pyelogram was completed through the left UO. No filling defects or areas concern. On drainage film there appeared to be no contrast remaining in the left kidney. The right stent was grasped and partially removed. A wire was then placed and the stent fully removed. The UO was cannulized over the wire with a dual lumen catheter and a retrograde pyelogram was completed. The wire was maintained and the catheter removed. With the wire in place, a 6 Fr Double J stent was placed. It was confirmed with fluoroscopy. With the stent in place, the bladder was emptied. The scope was removed. The patient was cleaned, aroused from anesthesia, and transferred to the pacu in stable condition having tolerated the procedure well with no complications. I was present and participated in all aspects of the procedure. The patient will be monitored in the PACU until transferred. We will have patient transfer back to floor. We will plan to monitor creatinine over time. Patient can likely be discharged later today if doing well without major issues. Would encourage patient to follow-up with primary urologist in order to discuss long-term plans for management of obstructive issues and chronic kidney disease with acute MAURICIO. We will plan to follow-up as needed As patient prefers continue management with her primary urology team at [facility] I attest to the content of the Intraoperative Record and any orders documented therein. Any exceptions are noted below.
--- NOTE | 2021-10-22 10:48 | Fluoroscopy Report ---
FL retrograde includes kub CLINICAL HISTORY: CYSTO, RT URETERAL STENT COMPARISON STUDY: Abdomen and pelvis CT 10/17/2021. FLUOROSCOPY TIME: 49 seconds. FINDINGS: The 4 fluoroscopic spot images of the abdomen and pelvis demonstrate retrograde opacificati on of the bilateral renal collecting systems followed by placement of a right ureteral stent. The ure teral stent appears in good position. There is right-sided hydronephrosis. IMPRESSION: Fluoroscopic assistance provided for right ureteral stent placement which appears in good position. ACT 112: Negative or not required by law. Electronically signed by: Francisco Salcedo M.D. 10/22/2021 10:47 AM
--- NOTE | 2021-10-22 11:20 | Nephrology Progress Note ---
Date of Service October 22, 2021 Assessment & Plan (1) Acute kidney injury: (2) UTI (urinary tract infection): (3) Right renal atrophy: (4) Ureteral stone with hydronephrosis: (5) Renal mass: (6) Acute dehydration: Plan MAURICIO. Baseline creatinine 1.5 mg/dL. Creatinine has been progressively rising since August. Glenis does have a propensity to some degree of prerenal physiology from dehydration. She also presented with a UTI. She has a history of recurrent E Coli UTI over the past few months. Thankfully responding to antibiotic therapy well. Some improvement in kidney function was initially noted with antibiotics and IVF during hospitalization. However, creatinine seems to have plateaued at 3.2 mg/dL. The patient's condition was discussed with urology yesterday. R ureteral stent will need to be changed. Dr. Hare is planning cystoscopy with possible BL retrograde pyelogram today. BP and volume status are acceptable. Electrolytes are normal. IV fluid to be provided as needed to maintain a positive fluid balance. Medications are appropriately dosed for kidney function. Glenis remains on IV ceftriaxone for E coli UTI. Plan of care was discussed with urology and the hospitalist this AM. Admission and Anticipated Discharge Date Admission Date: October 17, 2021 Subjective No acute events overnight. Glenis feels reasonably well this AM. Appetite fair. Denies nausea or abdominal pain. No flank pain. No urinary symptoms. Denies fevers or chills. Review of Systems Review of Systems: All systems reviewed & are unremarkable except as noted in HPI & below Physical Exam Constitutional: well developed and + morbidly obese; no acute distress Eyes: no scleral abnormality and no corneal abnormality ENMT: Mouth: no oral mucosal abnormality and oral mucous membranes not dry Neck: normal visual inspection and trachea midline Respiratory: normal respiratory effort Auscultation: lungs clear to auscultation bilaterally Cardiovascular: Rate/Rhythm: regular rate Heart Sounds: normal S1 and normal S2 Extremities: no edema Musculoskeletal: Extremities: no cyanosis and no clubbing Skin: + turgor decreased; no lesions Neurologic: Motor/Sensory: no tremor and no asterixis Psychiatric: Orientation: alert and oriented x 3 Results & Data ([facility]) Vital Signs (Past 12 Hours) Vital Signs Temp Pulse Pulse Pulse Resp BP Pulse Ox 10/22/21 11:00 37.0 C 60 18 139/90 94 10/22/21 10:50 63 16 159/94 H 93 10/22/21 10:40 62 15 144/86 H 94 10/22/21 10:31 36.2 C L 62 12 131/87 93 10/22/21 07:35 37.0 C 64 120/62 93 10/22/21 07:00 10/22/21 03:49 36.7 C 65 18 178/72 H 93 10/22/21 01:14 71 Pulse Ox O2 Del Method O2 Flow Rate 10/22/21 11:00 Nasal Cannula 2 10/22/21 10:50 Nasal Cannula 2 10/22/21 10:40 Oxymask 4 10/22/21 10:31 Oxymask 6 10/22/21 07:35 Room Air 10/22/21 07:00 98 10/22/21 03:49 Room Air 10/22/21 01:14 Laboratory Results Laboratory Results - last 24 hr 10/21/21 10/21/21 10/22/21 16:16 20:26 05:30 Sodium Potassium Chloride Carbon Dioxide Anion Gap BUN Creatinine Est Cr Clr Drug Dosing Est GFR ( Amer) Est GFR (Non-Af Amer) BUN/Creatinine Ratio Glucose POC Glucose 114 H 116 H 102 H Calcium Phosphorus Albumin 10/22/21 10/22/21 10/22/21 07:37 08:22 10:37 Sodium 136 Potassium 3.9 Chloride 103 Carbon Dioxide 22 Anion Gap 11 BUN 29 H Creatinine 3.26 H Est Cr Clr Drug Dosing 19.7 Est GFR ( Amer) 15.8 Est GFR (Non-Af Amer) 13.7 BUN/Creatinine Ratio 8.9 L Glucose 102 H POC Glucose 119 H 111 H Calcium 9.3 Phosphorus 4.6 Albumin 4.2 PG Care Time/CCT Total # of Minutes Spent Total Time Spent with Patient: Total time spent is greater than 50% in coordination of care (as documented) at patient's floor/unit and/or counseling patient: Coding Level of Care Code 80692 Subseq Hosp Care Lvl 3 Diagnoses Acute kidney injury N17.9 UTI (urinary tract infection) N39.0 Right renal atrophy N26.1 Ureteral stone with hydronephrosis N13.2 Renal mass N28.89 Acute dehydration E86.0
--- NOTE | 2021-10-22 11:25 | Hospitalist Progress Note ---
Date of Service October 22, 2021 Assessment & Plan (1) Ureteral stone with hydronephrosis: Plan: History of right ureteral stricture managed with a chronic right ureteral stent since 1994. She follows with [facility] urology ( Dr. Joel Valdez) and has stents exchanged every 6 months, last performed 07/01/2021. Long discussion with Dr. Valdez from [facility] urology last night. He is recommending replacement of right ureteral stent. As creatinine starts to come down she can be discharged and follow-up with his office Urology consultation appreciated. We will plan on right stent replacement tomorrow with Dr. Hare in the operating room (2) Acute kidney injury: Plan: Laboratory Tests 10/21/21 10/22/21 06:02 08:22 Creatinine 3.27 H D 3.26 H Creatinine 3.26 today. Right ureteral stent replacement today Continue IV fluids per nephrology. Currently treating treat UTI with ceftriaxone. Monitor intake and output. Appreciate nephrology consultation (3) UTI (urinary tract infection): Plan: E. coli isolated. Continue intravenous Rocephin, day 6. Can most likely stop a bx tomorrow Plan on stent replacement on the right tomorrow Blood cultures negative to date. 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 The patient's last stent exchange was 07/01/2021 [facility] urology will follow as an outpatient on discharge Will most likely need split study to determine function of left kidney and whether a stent is needed on the left Right ureteral stent replacement 10/22/2021 (5) Renal mass: Plan: Seen by Dr. Renato Williamson 10/06/2021. Patient was seen in the clinic for follow-up abdomen newly discovered 1.9 cm enhancing right upper pole renal mass with significantly atrophic right kidney with CT of the abdomen pelvis on 08/2021 The patient has no gross hematuria dysuria or flank pain Unclear etiology or malignant status. Per review of the note, up to 30% of renal masses less than 4 cm are benign It was suggested that the patient undergo renal scan to determine split function, as these results would impact recommendations for possible surgical intervention vs MRI imaging in 1 year Routine urology consult placed this admission recommends continued observation with no intervention at this time. Any intervention would be managed by [facility] (6) Right renal atrophy: Plan: Split function 10+ years ago revealed 25% function. Further management with Dr. Valdez at [facility] (7) Diabetes: Plan: Recently taken off metformin due to worsening renal function. Ozempic injections weekly, last received on 10/16. Hold Ozempic while inpatient, continue SSI with Accuchecks ACHS. Continue gabapentin 300 mg daily for neuropathy. (8) Moderate to severe aortic stenosis: Plan: Seen by cardiology last month. Echo from July showed moderate-severe with EF 50-55% Aortic valve area at 1.0 cm2 Judicious use of IV fluids (9) Hypertension: Plan: Continue carvedilol 12.5 mg BID, diltiazem 240 mg daily. (10) Gastroesophageal reflux disease: Plan: Continue Protonix 40 mg daily. (11) Gastroparesis: Plan: History of gastroparesis Scheduled for gastric emptying scan next month Is not on any motility agents No current complaints of nausea/vomiting although she has had this in the past Tolerating diet well (12) Psoriasis: Plan: Treated with clobetasol cream prn, triamcinolone cream prn. Plan Right ureteral stent replacement today with Dr. Hare Plan on discharge with follow-up in [place]. Admission and Anticipated Discharge Date Admission Date: October 17, 2021 Subjective Attending: Dr. Vargas Patient seen and examined in the PACU prior to surgery. She has no acute complaints. BM yesterday. Passing gas. No n/v. No fever, chills, or sweats. Review of Systems Review of Systems: A total of 10 systems was reviewed and is negative other than as listed in the HPI Physical Exam Physical Exam: GENERAL : No acute distress. Pleasant EYES: No icterus, gaze conjugate NOSE: No evidence of epistaxis MOUTH: No lesions or candidiasis NECK: Supple LUNGS: CTA B/L, no wheezes, rales or rhonchi HEART: Regular, rate controlled ABDOMEN: Soft, NT, ND, BS Present EXTREMITIES: No LE edema, pedal pulses intact NEURO: A&OX3 Results & Data Results & Data ([facility] [place]) Vital Signs (Past 12 Hours) Vital Signs Temp Pulse Pulse Pulse Resp BP Pulse Ox 10/22/21 11:00 37.0 C 60 18 139/90 94 10/22/21 10:50 63 16 159/94 H 93 10/22/21 10:40 62 15 144/86 H 94 10/22/21 10:31 36.2 C L 62 12 131/87 93 10/22/21 07:35 37.0 C 64 120/62 93 10/22/21 07:00 10/22/21 03:49 36.7 C 65 18 178/72 H 93 10/22/21 01:14 71 Pulse Ox O2 Del Method O2 Flow Rate 10/22/21 11:00 Nasal Cannula 2 10/22/21 10:50 Nasal Cannula 2 10/22/21 10:40 Oxymask 4 10/22/21 10:31 Oxymask 6 10/22/21 07:35 Room Air 10/22/21 07:00 98 10/22/21 03:49 Room Air 10/22/21 01:14 Critical Care Results & Data Vital Signs (Past 12 Hours) Vital Signs Temp Pulse Pulse Pulse Resp BP Pulse Ox 10/22/21 11:00 37.0 C 60 18 139/90 94 10/22/21 10:50 63 16 159/94 H 93 10/22/21 10:40 62 15 144/86 H 94 10/22/21 10:31 36.2 C L 62 12 131/87 93 10/22/21 07:35 37.0 C 64 120/62 93 10/22/21 07:00 10/22/21 03:49 36.7 C 65 18 178/72 H 93 10/22/21 01:14 71 Pulse Ox O2 Del Method O2 Flow Rate 10/22/21 11:00 Nasal Cannula 2 10/22/21 10:50 Nasal Cannula 2 10/22/21 10:40 Oxymask 4 10/22/21 10:31 Oxymask 6 10/22/21 07:35 Room Air 10/22/21 07:00 98 10/22/21 03:49 Room Air 10/22/21 01:14 Lab & Micro Results (Past 24 Hours) No Data to Display Na 136 mmol/L (136-145) 10/22/21 K 3.9 mmol/L (3.5-5.1) 10/22/21 Cl 103 mmol/L (98-107) 10/22/21 CO2 22 mmol/L (21-32) 10/22/21 Anion Gap 11 (3-11) 10/22/21 BUN 29 mg/dl (6-23) H 10/22/21 Creatinine ▪ 3.26 mg/dl (0.6-1.2) H Estimated GFR ( Amer) 15.8 ml/min 10/22/21 Estimated GFR (Non-Af Amer) 13.7 ml/min 10/22/21 BUN/Creatinine Ratio 8.9 (10-20) L 10/22/21 Glu 102 mg/dl (70-99(Fasting)) H 10/22/21 Ca 9.3 mg/dl (8.5-10.1) 10/22/21 Phosphorus Level 4.6 mg/dl (2.5-4.9) 10/22/21 Albumin 4.2 gm/dl (3.4-5.0) 10/22/21 Calcium Level 9.3 mg/dl (8.5-10.1) 10/22/21 08:22 Diagnostic Findings (Past 24 Hours) Retrograde Pyelogram 10/22/21 00:00 FL retrograde includes kub CLINICAL HISTORY: CYSTO, RT URETERAL STENT COMPARISON STUDY: Abdomen and pelvis CT 10/17/2021. FLUOROSCOPY TIME: 49 seconds. FINDINGS: The 4 fluoroscopic spot images of the abdomen and pelvis demonstrate retrograde opacification of the bilateral renal collecting systems followed by placement of a right ureteral stent. The ureteral stent appears in good position. There is right-sided hydronephrosis. IMPRESSION: Fluoroscopic assistance provided for right ureteral stent placement which appears in good position. ACT 112: Negative or not required by law. Electronically signed by: Francisco Salcedo M.D. 10/22/2021 10:47 AM I & O Totals 24 Hours 10/21/21 10/22/21 10/23/21 06:59 06:59 06:59 Intake Total 1055 / 1055 690 / 690 200 / 200 Output Total 1999 / 1999 1750 / 1750 Balance -945 / -945 -1060 / -1060 199 / 199 Cumulative 10/17/21 14:39 thru 10/22/21 10:31 Intake Total 9930.000 Output Total 6151 Balance 3779.000 RT Ventilator Mngmt (Last Documented) Ventilator Ordered Settings Respiratory Rate 18 10/22/21 11:00 Ventilator - PT Measurements Respiratory Rate 18 PG Care Time/CCT Total # of Minutes Spent Total Time Spent with Patient: Total time spent is greater than 50% in coordination of care (as documented) at patient's floor/unit and/or counseling patient: Coding Level of Care Code 97670 Subseq Hosp Care Lvl 2 Diagnoses Ureteral stone with hydronephrosis N13.2 Acute kidney injury N17.9 UTI (urinary tract infection) N39.0 Retroperitoneal fibrosis N13.5 Renal mass N28.89 Right renal atrophy N26.1 Diabetes E11.9 Moderate to severe aortic stenosis I35.0 Hypertension I10 Gastroesophageal reflux disease K21.9 Gastroparesis K31.84 Psoriasis L40.9
--- NOTE | 2021-10-22 11:56 | Anesthesiology Progress Note ---
Date of Service October 22, 2021 Anesthesia Post Procedure Vital Signs Vital Signs: Temp Pulse Pulse Pulse Resp BP BP 10/22/21 11:37 36.9 C 80 16 139/68 10/22/21 11:00 37.0 C 60 18 139/90 10/22/21 10:50 63 16 159/94 H 10/22/21 10:40 62 15 144/86 H 10/22/21 10:31 36.2 C L 62 12 131/87 10/22/21 07:35 37.0 C 64 120/62 10/22/21 07:00 10/22/21 03:49 36.7 C 65 18 178/72 H 10/22/21 01:14 71 10/21/21 22:49 36.6 C 69 18 169/83 H 10/21/21 19:00 36.7 C 70 18 157/87 H 10/21/21 16:00 10/21/21 16:38 36.8 C 65 16 131/71 Pulse Ox Pulse Ox O2 Del Method O2 Flow Rate 10/22/21 11:37 98 10/22/21 11:00 94 Nasal Cannula 2 10/22/21 10:50 93 Nasal Cannula 2 10/22/21 10:40 94 Oxymask 4 10/22/21 10:31 93 Oxymask 6 10/22/21 07:35 93 Room Air 10/22/21 07:00 98 10/22/21 03:49 93 Room Air 10/22/21 01:14 10/21/21 22:49 90 Room Air 10/21/21 19:00 93 Room Air 10/21/21 16:00 Room Air 10/21/21 16:38 94 Room Air Transfer of Care Handoff Completed per policy Notes Mental Status: alert / awake / arousable and participated in evaluation Patient Amnestic to Procedure: Yes Nausea / Vomiting: adequately controlled Pain: adequately controlled Airway Patency, RR, SpO2: stable & adequate BP & HR: stable & adequate Hydration State: stable & adequate Anesthetic Complications: no major complications apparent and Pt Satisfied with anesthetic care
[2021-10-22] MEDS: INSULIN ASPART PER UNIT SC SCH ×3 (13:32→20:13)
[2021-10-22] MEDS: ROSUVASTATIN CALCIUM 5 MG TAB PO SCH (20:10)
[2021-10-22] MEDS: MELATONIN 3 MG TAB PO PRN (20:17)
[2021-10-22] MEDS: diphenhydrAMINE 50 MG/ML VIAL IV SCH (22:33)
[2021-10-22] MEDS: cefTRIAXone SODIUM 2,000 MG in DEXTROSE 5% 50 ML IV SCH (22:53)
[2021-10-23] MEDS: ASPIRIN 325 MG ECTAB PO SCH (07:53)
[2021-10-23] MEDS: CYANOCOBALAMIN (B-12) 500 MCG TABLET PO SCH (07:53)
[2021-10-23] MEDS: DICLOFENAC SOD 1% GEL 100 GM TUBE EXT SCH ×4 (07:53→20:07)
[2021-10-23] MEDS: carvediloL 12.5 MG TAB PO SCH ×2 (07:53→20:15)
[2021-10-23] MEDS: PANTOprazole 40 MG TAB PO SCH (07:54)
[2021-10-23] MEDS: GABAPENTIN 300 MG CAP PO SCH (07:54)
[2021-10-23] MEDS: HEPARIN SOD 5,000 UNIT/0.5 ML VIAL SQ SCH ×2 (07:54→20:10)
[2021-10-23] MEDS: dilTIAZem HCL 240 MG CAPCR PO SCH ×2 (07:54→20:15)
[2021-10-23] MEDS: FAMOTIDINE 40 MG TABLET PO SCH (07:54)
[2021-10-23] MEDS: INSULIN ASPART PER UNIT SC SCH ×4 (07:58→22:20)
[2021-10-23 10:21] LABS: BUN Creatinine Ratio 7.8 (10-20); Calcium 9.2 mg/dl (8.5-10.1); Creatinine Clr Calc Pharmacy 18.5 ml/min; Est GFR (African American) 14.7 ml/min; Est GFR (Non-African American) 12.7 ml/min; Potassium 3.7 mmol/L (3.5-5.1)
[2021-10-23] MEDS ORDERED: NORMOSOL-R 500 ML IV ONE (10:40)
--- NOTE | 2021-10-23 10:40 | Nephrology Progress Note ---
Date of Service October 23, 2021 Assessment & Plan (1) Acute kidney injury: (2) UTI (urinary tract infection): (3) Right renal atrophy: (4) Ureteral stone with hydronephrosis: (5) Renal mass: (6) Acute dehydration: Plan POD#1 s/p cystoscopy BL retrograde pyelogram and R sided stent. Left kidney was without filling defects or hydronephrosis. MAURICIO. Baseline creatinine 1.5 mg/dL in August. Glenis does have a propensity to some degree of prerenal physiology from dehydration. She also presented with a UTI. She has a history of recurrent E Coli UTI over the past few months. The kidney is chronically obstructed. Some improvement in kidney function was initially noted with antibiotics and IVF during hospitalization. However, creatinine plateaued at 3.2 mg/dL and is slightly elevated at 3.4 mg/dL this AM. Unfortunately, poor oral intake reported yesterday and this AM while NPO for procedure and following a flare in nausea. A 500 ml bolus of normosol will be provided. Additional fluids as needed to encourage positive fluid balance. Metabolic profile will be repeated. The patient's condition was discussed with Dr. Vargas this AM. BP and volume status are acceptable. Electrolytes are normal. IV fluid to be provided as needed to maintain a positive fluid balance. There is no emergent indication for dialysis at this time. Medications are appropriately dosed for kidney function. Glenis remains on IV ceftriaxone for E coli UTI. If kidney function continues to decline, consideration could be given to evaluation of the renal arteries but clinically this would be very atypical. Admission and Anticipated Discharge Date Admission Date: October 17, 2021 Subjective No acute events overnight. Glenis feels well this AM. She is voiding without difficulty. No fevers or chills. Appetite poor. Nausea increased. Denies pain. Review of Systems Review of Systems: All systems reviewed & are unremarkable except as noted in HPI & below Physical Exam Constitutional: well developed and + morbidly obese; no acute distress Eyes: no scleral abnormality and no corneal abnormality ENMT: Mouth: no oral mucosal abnormality and oral mucous membranes not dry Neck: normal visual inspection and trachea midline Respiratory: normal respiratory effort Cardiovascular: Rate/Rhythm: regular rate Extremities: no edema Musculoskeletal: Extremities: no cyanosis and no clubbing Skin: + turgor decreased; no lesions Neurologic: Motor/Sensory: no tremor and no asterixis Psychiatric: Orientation: alert and oriented x 3 Results & Data ([facility]) Vital Signs (Past 12 Hours) Vital Signs Temp Pulse Pulse Resp BP Pulse Ox O2 Del Method 10/23/21 07:27 37.2 C 65 20 157/77 H 95 Room Air 10/23/21 03:50 36.8 C 61 16 133/77 91 Room Air 10/23/21 01:42 63 10/22/21 23:32 36.9 C 65 18 132/70 93 Room Air Laboratory Results Laboratory Results - last 24 hr 10/22/21 10/22/21 10/22/21 10:37 11:37 16:39 Sodium Potassium Chloride Carbon Dioxide Anion Gap BUN Creatinine Est Cr Clr Drug Dosing Est GFR ( Amer) Est GFR (Non-Af Amer) BUN/Creatinine Ratio Glucose POC Glucose 111 H 122 H 122 H Calcium Phosphorus Albumin 10/22/21 10/23/21 10/23/21 19:55 07:40 09:49 Sodium 134 L Potassium 3.7 Chloride 101 Carbon Dioxide 23 Anion Gap 10 BUN 27 H Creatinine 3.47 H Est Cr Clr Drug Dosing 18.5 Est GFR ( Amer) 14.7 Est GFR (Non-Af Amer) 12.7 BUN/Creatinine Ratio 7.8 L Glucose 112 H POC Glucose 91 100 H Calcium 9.2 Phosphorus 4.0 Albumin 4.0 PG Care Time/CCT Total # of Minutes Spent Total Time Spent with Patient: Total time spent is greater than 50% in coordination of care (as documented) at patient's floor/unit and/or counseling patient: Coding Level of Care Code 76557 Subseq Hosp Care Lvl 3 Diagnoses Acute kidney injury N17.9 UTI (urinary tract infection) N39.0 Right renal atrophy N26.1 Ureteral stone with hydronephrosis N13.2 Renal mass N28.89 Acute dehydration E86.0
--- NOTE | 2021-10-23 13:53 | Hospitalist Progress Note ---
Date of Service October 23, 2021 Assessment & Plan (1) Acute kidney injury: Plan: Initially etiology was concerning for obstructionbut seems pretty unlikely. Chronically stented kidney had stent exchange, opposite kidney did not have any meaningful obstruction on retrograde pyelogram. Concern now, in discussion with nephrology, is that retroperitoneal fibrosis may be causing extrinsic obstructionIV fluids restarted to follow for this, will need to continue to discuss with nephrology, as well as urology, particularly the patient's primary urologist Dr. Mace. (2) Ureteral stone with hydronephrosis: Plan: History of right ureteral stricture managed with a chronic right ureteral stent since 1994. She follows with [facility] urology ( Dr. Joel Valdez) and has stents exchanged every 6 months, last performed 07/01/2021, but with the possibility that stent obstruction is leading to her current AKIstent exchange done 10/23. Jazz GROSSMAN had discussion with Dr. Valdez from [facility] few days ago. He recommended right ureteral stent exchangethis was done yesterdaywith the hopes that possibly it might alleviate some degree of obstruction and lead to improving creatinine. Unfortunately this was not the case. (3) UTI (urinary tract infection): Plan: E. coli isolated. Really no symptoms, and I do wonder if it was just asymptomatic bacteriuria, but given the foreign body with stent, as well as the renal failurehard to not treat in this situation. 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 The patient's last stent exchange was 07/01/2021 [facility] urology will follow as an outpatient on discharge Will most likely need split study to determine function of left kidney and whether a stent is needed on the left Right ureteral stent replacement 10/22/2021 Otherwise as #1 above (5) Renal mass: Plan: Seen by Dr. Renato Williamson 10/06/2021. Patient was seen in the clinic for follow-up abdomen newly discovered 1.9 cm enhancing right upper pole renal mass with significantly atrophic right kidney with CT of the abdomen pelvis on 08/2021 The patient has no gross hematuria dysuria or flank pain Unclear etiology or malignant status. Per review of the note, up to 30% of renal masses less than 4 cm are benign It was suggested that the patient undergo renal scan to determine split function, as these results would impact recommendations for possible surgical intervention vs MRI imaging in 1 year Routine urology consult placed this admission recommends continued observation with no intervention at this time. Any intervention would be managed by [facility] (6) Right renal atrophy: Plan: Split function 10+ years ago revealed 25% function. Further management with Dr. Valdez at [facility] (7) Diabetes: Plan: Sugars have been acceptable Recently taken off metformin due to worsening renal function. Ozempic injections weekly, last received on 10/16. Hold Ozempic while inpatient, continue SSI with Accuchecks ACHS. Continue gabapentin 300 mg daily for neuropathy. (8) Moderate to severe aortic stenosis: Plan: Seen by cardiology last month. Echo from July showed moderate-severe with EF 50-55% Aortic valve area at 1.0 cm2 (9) Hypertension: Plan: Continue carvedilol 12.5 mg BID, diltiazem 240 mg daily. Blood pressure overall acceptable given the circumstances (10) Gastroesophageal reflux disease: Plan: Continue Protonix 40 mg daily. (11) Gastroparesis: Plan: History of gastroparesis Scheduled for gastric emptying scan next month Is not on any motility agents No current complaints of nausea/vomiting although she has had this in the past Tolerating diet well (12) Psoriasis: Plan: Treated with clobetasol cream prn, triamcinolone cream prn. Admission and Anticipated Discharge Date Admission Date: October 17, 2021 Subjective Feeling okay. No physical complaints. Just concerned about her creatinine rising again. Case discussed with nephrology at lengthinput greatly appreciated. Concern is that may be retroperitoneal fibrosis is contributing to kidney failure. For now retrial of IV fluids and follow closely. Updated patient at the bedside, her was on speaker phone during the visit. Review of Systems Review of Systems: All systems reviewed & are unremarkable except as noted in HPI & below Physical Exam Physical Exam: In general she is awake and alert pleasant no distress. HEENT normocephalic atraumatic mucous membranes moist. Breathing unlabored no accessory muscle use good effort. Skin shows no rashes no pallor or icterus. Neuro without focal deficits. Results & Data Results & Data ([facility]) Vital Signs (Past 12 Hours) Vital Signs Temp Pulse Resp BP Pulse Ox O2 Del Method 09/04/22 11:06 98.1 F 64 20 156/75 H 93 Room Air 10/23/21 07:27 99.0 F 65 20 157/77 H 95 Room Air 10/23/21 03:50 98.2 F 61 16 133/77 91 Room Air PG Care Time/CCT Total # of Minutes Spent Total Time Spent with Patient: Total time spent is greater than 50% in coordination of care (as documented) at patient's floor/unit and/or counseling patient: Coding Level of Care Code 24228 Subseq Hosp Care Lvl 2 Diagnoses Acute kidney injury N17.9 Ureteral stone with hydronephrosis N13.2 UTI (urinary tract infection) N39.0 Retroperitoneal fibrosis N13.5 Renal mass N28.89 Right renal atrophy N26.1 Diabetes E11.9 Moderate to severe aortic stenosis I35.0 Hypertension I10 Gastroesophageal reflux disease K21.9 Gastroparesis K31.84 Psoriasis L40.9
[2021-10-23] MEDS: POLYETHYLENE (MIRALAX) 17 GM PACK PO PRN (20:06)
[2021-10-23] MEDS: ROSUVASTATIN CALCIUM 5 MG TAB PO SCH (20:14)
[2021-10-23] MEDS: MELATONIN 3 MG TAB PO PRN (20:21)
[2021-10-23] MEDS: ONDANSETRON INJ 2 MG/ML 2 ML VIAL IV PRN (22:26)
[2021-10-23] MEDS: diphenhydrAMINE 50 MG/ML VIAL IV SCH (22:29)
[2021-10-23] MEDS: cefTRIAXone SODIUM 2,000 MG in DEXTROSE 5% 50 ML IV SCH (22:31)
[2021-10-24 07:18] LABS: BUN Creatinine Ratio 8.5 (10-20); Calcium 9.2 mg/dl (8.5-10.1); Creatinine Clr Calc Pharmacy 19.4 ml/min; Est GFR (African American) 15.6 ml/min; Est GFR (Non-African American) 13.4 ml/min; Potassium 3.8 mmol/L (3.5-5.1)
[2021-10-24] MEDS: INSULIN ASPART PER UNIT SC SCH ×2 (09:25→12:33)
[2021-10-24] MEDS: carvediloL 12.5 MG TAB PO SCH (09:28)
[2021-10-24] MEDS: ASPIRIN 325 MG ECTAB PO SCH (09:28)
[2021-10-24] MEDS: CYANOCOBALAMIN (B-12) 500 MCG TABLET PO SCH (09:28)
[2021-10-24] MEDS: HEPARIN SOD 5,000 UNIT/0.5 ML VIAL SQ SCH (09:29)
[2021-10-24] MEDS: FAMOTIDINE 40 MG TABLET PO SCH (09:29)
[2021-10-24] MEDS: PANTOprazole 40 MG TAB PO SCH (09:29)
[2021-10-24] MEDS: GABAPENTIN 300 MG CAP PO SCH (09:29)
[2021-10-24] MEDS: dilTIAZem HCL 240 MG CAPCR PO SCH (09:29)
[2021-10-24] MEDS: DICLOFENAC SOD 1% GEL 100 GM TUBE EXT SCH ×2 (09:29→12:35)
--- NOTE | 2021-10-24 12:52 | Discharge Summary ---
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 She has had worsening renal function over the past month labs have been monitored closely. One week ago, her creatinine was 2.4 with hypercalcemia but without significant proteinuria, hypoalbuminemia, or lower extremity edema. On today's labs, creatinine is 3.2 and an outpatient renal ultrasound showed atrophic right kidney with mild hydronephrosis. CT abd/pel here shows mild- moerate hydronephrosis which is worse from previous CT 08/2021. Kidney function is worsening despite of stopping Lasix, Celebrex, and metformin last week. Based on this, she was advises to present to ED for further evaluation. Besides ongoing fatigue for the past 2 months, patient is without symptoms, no fever/chills, weakness, abdominal pain, dysuria, hematuria, increased urinary frequency or retention. A CT A/P here shows multiple calculi and fragments within the right ureter which measure up to 1.2 x 0.4 cm, with a right ureteral stent in place and mild to moderate right hydronephrosis. Right renal mass is redemonstrated, stable in size. Again, marked right renal atrophy is noted without any left hydronephrosis or urinary calculi. UA is with 10-20 epithelial cells, but with 3+ bacteria, 1030 WBCs, 2+ leuk esterase. She is hypertensive on admission 179/90, otherwise vital signs within normal limits, stable. She is afebrile. Principal Diagnosis MAURICIO Right renal atrophy Discharge Exam General: A&Ox3. NAD. Cooperative. HEENT: Atraumatic, normocephalic. Mucous membranes moist Pulm: CTAB A&P. -wheezes, -rales, -rhonchi. Symmetrical chest rise. No increase in work of breathing. No respiratory distress. Cardiac: RRR, -mrg. Radial pulses intact and symmetrical. Abdominal: Nontender, nondistended, soft. BS present. Discharge Data Allergies Allergy/AdvReac Type Severity Reaction Status Date / Time amoxicillin Allergy Intermediate Hives Verified 10/17/21 18:01 fluconazole Allergy Mild HIVES Verified 10/17/21 18:01 cephalexin Allergy Unknown hives, Unverified 10/17/21 18:01 itchy hydrochlorothiazide Allergy Unknown DYAZIDE-KIRSTIN Verified 10/17/21 18:01 H nifedipine Allergy Unknown RASH Verified 10/17/21 18:01 nitrofurantoin Allergy Unknown RASH Verified 10/17/21 18:01 olmesartan Allergy Unknown GI UPSET, Verified 10/17/21 18:01 WEIGHT LOSS Sulfa (Sulfonamide Allergy Unknown RASH Verified 10/17/21 18:01 Antibiotics) triamterene Allergy Unknown DYAZIDE-KIRSTIN Verified 10/17/21 18:01 H Penicillins Allergy Unknown Unverified 10/17/21 18:04 Consultations 10/17/21 18:18 ED Decision to Admit Stat 10/17/21 21:16 Consult Urology Routine 10/17/21 21:56 Consult Nephrology Routine Procedures Performed Operation Date: 10/22/21 10:00 Actual Procedures s Ureteral Stent Exchange(Right) - Jaycob Hare DO p Cystoscopy, Bilateral Retrograde pyelogram(Right) - Jaycob Hare DO Ordered Studies 10/17/21 15:29 CT Abd and Pelvis [CT abd pelvis wo con] Stat 10/22/21 [place] retrograde includes kub Routine Hospital Course (1) Acute kidney injury: To do as outpatient: 1. Follow-up BMP within 5 days 2. Follow-up with Dr. Mcocrd within 10 days 3. Complete gastric emptying study 10/25 4. Keep renal mass outpatient follow-up at [place] 5. Follow-up with Dr. Mace, urology Initially etiology was concerning for obstructionbut seems pretty unlikely. Chronically stented kidney had stent exchange, opposite kidney did not have any meaningful obstruction on retrograde pyelogram. Concern now, in discussion with nephrology, is that retroperitoneal fibrosis may be causing extrinsic obst ructionIV fluids restarted to follow for this patient clinically improved will need to continue to ffollow with nephrology, as well as urology, particularly the patient's primary urologist Dr. Mace. (2) Ureteral stone with hydronephrosis: History of right ureteral stricture managed with a chronic right ureteral stent since 1994. She follows with [facility] urology ( Dr. Joel Valdez) and has stents exchanged every 6 months, last performed 07/01/2021, but with the possibility that stent obstruction is leading to her current AKIstent exchange done 10/23. Jazz GROSSMAN had discussion with Dr. Valdez from [facility] urologya few days ago. He recommended right ureteral stent exchangethis was done yesterdaywith the hopes that possibly it might alleviate some degree of obstruction and lead to improving creatinine. Unfortunately this was not the case. (3) UTI (urinary tract infection): E. coli isolated. Really no symptoms, and I do wonder if it was just asymptomatic bacteriuria, but given the foreign body with stent, as well as the renal failurehard to not treat in this situation. 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 The patient's last stent exchange was 07/01/2021 [facility] urology will follow as an outpatient on discharge Will most likely need split study to determine function of left kidney and whether a stent is needed on the left Right ureteral stent replacement 10/22/2021 Otherwise as #1 above (5) Renal mass: Seen by Dr. Renato Williamson 10/06/2021. Patient was seen in the clinic for follow-up abdomen newly discovered 1.9 cm enhancing right upper pole renal mass with significantly atrophic right kidney with CT of the abdomen pelvis on 08/2021 The patient has no gross hematuria dysuria or flank pain Unclear etiology or malignant status. Per review of the note, up to 30% of renal masses less than 4 cm are benign It was suggested that the patient undergo renal scan to determine split function, as these results would impact recommendations for possible surgical intervention vs MRI imaging in 1 year Routine urology consult placed this admission recommends continued observation with no intervention at this time. Any intervention would be managed by [facility] (6) Right renal atrophy: Split function 10+ years ago revealed 25% function. Further management with Dr. Valdez at [facility] (7) Diabetes: Sugars have been acceptable Recently taken off metformin due to worsening renal function. Ozempic injections weekly, last received on 10/16. Hold Ozempic while inpatient, continue SSI with Accuchecks ACHS. Continue gabapentin 300 mg daily for neuropathy. (8) Moderate to severe aortic stenosis: Seen by cardiology last month. Echo from July showed moderate-severe with EF 50-55% Aortic valve area at 1.0 cm2 (9) Hypertension: Continue carvedilol 12.5 mg BID, diltiazem 240 mg daily. Blood pressure overall acceptable given the circumstances (10) Gastroesophageal reflux disease: Continue Protonix 40 mg daily. (11) Gastroparesis: History of gastroparesis Scheduled for gastric emptying scan next month Is not on any motility agents No current complaints of nausea/vomiting although she has had this in the past Tolerating diet well (12) Psoriasis: Treated with clobetasol cream prn, triamcinolone cream prn. Total Time Total Time Spent Total Time Spent (In Minutes): >30 Discharge Plan Discharge Items Patient Disposition: Home - Self-Care Reason For Visit: MAURICIO ON CKD Discharge Diagnosis: MAURICIO on CKD Activity: Resume your previous activity Non-emergency contact: Primary Care Provider, Washroom Cleaner and Urologist Call non-emergency contact if: you have any medication questions, your symptoms worsen and your pain is not controlled Follow-up/Referrals: Mateo Saini MD [Primary Care Provider] - Cesia Mccord MD [Physician] - Diet: Carb Consistent or DM2 and Low Potassium (2gm) Addtl Attending Provider Instructions: You are seen in the hospital for MAURICIO. Your MAURICIO was initially concerning for obstructive etiology, however you had a stent exchange and meaningful obstruction on retrograde pyelogram was not appreciated. Your case was reviewed with nephrology it was suspected that retroperitoneal fibrosis may be causing some extrinsic obstruction. Your kidney numbers did improve with IV fluids. Y ou will require additional follow-up and labs with nephrology and your urologist. You completed a course of treatment with ceftriaxone for UTI during admission. Additional antibiotics were not prescribed at discharge In appointment is being scheduled for you with [facility] neurology, if you do not receive a call to confirm this appointment within the next 48 hours please call their office directly. An appointment is being scheduled for you with [facility] and nephrology for within the next 2 weeks. You should have blood work, a BMP, performed within 5 days. This has been ordered for you, however the results may not automatically be forwarded. Please call nephrology to discuss the results of these labs. You have a gastric emptying study scheduled for tomorrow. Please keep this appointment. You should be seen by your primary care physician within 2 weeks. Please discuss your renal mass outpatient follow-up at [place] at this appointment. If you develop any new or worsening symptoms including fever, chills, sweats, chest pain, chest pressure, difficulty breathing, uncontrolled nausea/vomiting, rash, wheezing, passing out or nearly passing out, bleeding, black/bloody bowel movements, or other new or concerning symptoms please call your primary care physician, or call 911 for re-evaluation in the emergency department if you are very concerned. Pending Studies at Discharge: No Stand-Alone Forms: [facility], Smoking Cessation Medications and DC Order Prescriptions: New ondansetron 4 mg tablet,disintegrating 4 mg PO Q8H PRN (Reason: nausea and vomiting) 4 Days Qty: 14 0RF Continued cranberry 400 mg capsule 400 mg PO DAILY Qty: 30 0RF Rx Instructions: administer with a meal melatonin 10 mg capsule 10 mg PO HS PRN (Reason: sleep) Qty: 30 0RF triamcinolone acetonide 0.1 % cream 1 applic topical UD Qty: 30 1RF diclofenac sodium 1 % gel 2 g TOP QID Qty: 300 1RF Rx Instructions: use on feet semaglutide 0.25 mg or 0.5 mg(2 mg/1.5 mL) pen injector 0.5 mg SQ WEEKLY Qty: 3 3RF diltiazem HCl 240 mg capsule,extended release 24 hr 240 mg PO BID Qty: 60 5RF pantoprazole 40 mg tablet,delayed release (DR/EC) 40 mg PO DAILY Qty: 30 5RF rosuvastatin 5 mg tablet 5 mg PO HS Qty: 30 5RF nitrofurantoin macrocrystal 100 mg capsule 100 mg PO BID Qty: 14 0RF Rx Instructions: must administer with a meal/food aspirin 325 mg tablet 325 mg PO DAILY Qty: 30 2RF potassium citrate 10 mEq (1,080 mg) tablet extended release 10 meq PO TID Qty: 90 5RF gabapentin 300 mg capsule 300 mg PO DAILY Qty: 90 5RF multivitamin [Multiple Vitamins] tablet 1 tab PO DAILY omega-3 acid ethyl esters 1 gram capsule 1 cap PO DAILY (DME) lancets [OneTouch Delica Lancets] 33 gauge misc See Dose Instructions .ROUTE .MEDSUPPLY Qty: 100 Label Comments: testing four times a day and as needed Rx Instructions: As directed (DME) Diabetic Shoes Misc See Rx Instructions .ROUTE .MEDSUPPLY Qty: 1 0RF Rx Instructions: As directed albuterol sulfate [ProAir HFA] 90 mcg/actuation HFA aerosol inhaler 1 inh INH QID PRN (Reason: shortness of breath or wheezing) Qty: 8 1RF leflunomide 10 mg tablet 10 mg PO DAILY carvedilol 12.5 mg tablet 12.5 mg PO BID Qty: 60 3RF Rx Instructions: must administer with a meal/food mecobalamin (vitamin B12) 1,000 mcg tablet,chewable 1,000 mcg PO DAILY Qty: 30 0RF diphenhydramine HCl 25 mg Capsule 25 mg PO Q12H PRN (Reason: Other) clobetasol 0.05 % foam 1 applic TOPICAL HS PRN (Reason: Skin Irritation) Glucosamine Chondroitin 550-30-1 mg Capsule 1 cap PO BID cyanocobalamin (vitamin B-12) 100 MCG 100 mcg PO DAILY nystatin 100,000 unit/mL suspension 5 ml buccal QID Rx Instructions: SWISH AND EXPECTORATE 5ML ORALLY FOUR TIMES DAILY. Discharge Orders: Discharge Order (Routine); Ordered 10/24/21 Ordered By: Trung Samaniego Admission Data Admit Date/Time: 10/17/21 18:34 Attending Provider: Trung Samaniego Admit Provider: Maryse Lemons Primary Care Provider: Mateo Saini Other Providers: Maryse Lemons ; Jaycob Hare ; Guy Page Coding Level of Care Code D/C DAY MANAGEMENT >30 MINS Diagnoses Acute kidney injury N17.9 Ureteral stone with hydronephrosis N13.2 UTI (urinary tract infection) N39.0 Retroperitoneal fibrosis N13.5 Renal mass N28.89 Right renal atrophy N26.1 Diabetes E11.9 Moderate to severe aortic stenosis I35.0 Hypertension I10 Gastroesophageal reflux disease K21.9 Gastroparesis K31.84 Psoriasis L40.9
--- NOTE | 2021-10-24 13:02 | Nephrology Progress Note ---
Date of Service October 24, 2021 Assessment & Plan (1) Acute kidney injury: (2) UTI (urinary tract infection): (3) Right renal atrophy: (4) Ureteral stone with hydronephrosis: (5) Renal mass: (6) Acute dehydration: Plan POD#2 s/p cystoscopy BL retrograde pyelogram and R sided stent. Left kidney without filling defects or hydronephrosis. MAURICIO. Baseline creatinine 1.5 mg/dL in August. Glenis does have a propensity to some degree of prerenal physiology from dehydration. She also presented with a UTI. She has a history of recurrent E Coli UTI over the past few months. The right kidney is chronically obstructed. Initial improvement in kidney function noted with antibiotics and IVF. However, creatinine plateaued at 3.2 mg/dL. The patient's condition was discussed with Dr. Samaniego this AM. BP and volume status are acceptable. Electrolytes are normal. There is no emergent indication for dialysis Medications are appropriately dosed for kidney function. Glenis remains on IV ceftriaxone for E coli UTI. I encouraged Glenis that adequate hydration and PO intake are our primary goals. No additional IVF provided today. Will monitor closely. If discharged, close outpatient follow up with Dr. Mccord will be arranged. Gastric emptying study is scheduled for tomorrow as an outpatient. Close outpatient follow up with urology will be required. Admission and Anticipated Discharge Date Admission Date: October 17, 2021 Subjective No acute events overnight. Continues to express some anxiety. Appetite remains poor and Glenis continues to struggle with nausea. Tolerating PO fluids. Tired this AM. Difficulty sleeping in the hospital. No additional GI symptoms reported. No fevers or chills. No fluid retention or edema. Review of Systems Review of Systems: All systems reviewed & are unremarkable except as noted in HPI & below Physical Exam Constitutional: well developed and + morbidly obese; no acute distress Eyes: no scleral abnormality and no corneal abnormality ENMT: Mouth: no oral mucosal abnormality and oral mucous membranes not dry Neck: normal visual inspection and trachea midline Respiratory: normal respiratory effort Auscultation: lungs clear to auscultation bilaterally Cardiovascular: Rate/Rhythm: regular rate Heart Sounds: normal S1 and normal S2 Extremities: no edema Musculoskeletal: Extremities: no cyanosis and no clubbing Skin: + turgor decreased; no lesions Neurologic: Motor/Sensory: no tremor and no asterixis Psychiatric: Orientation: alert and oriented x 3 Results & Data ([facility]) Vital Signs (Past 12 Hours) Vital Signs Temp Pulse Pulse Pulse Resp BP Pulse Ox 10/24/21 11:33 36.8 C 54 L 20 156/72 H 93 10/24/21 07:00 10/24/21 07:37 64 10/24/21 07:34 37.0 C 67 18 155/72 H 94 10/24/21 03:41 36.4 C L 61 16 131/79 96 10/24/21 01:57 70 O2 Del Method O2 Del Method 10/24/21 11:33 Room Air 10/24/21 07:00 Room Air 10/24/21 07:37 10/24/21 07:34 Room Air 10/24/21 03:41 Room Air 10/24/21 01:57 Laboratory Results Laboratory Results - last 24 hr 10/23/21 10/23/21 10/24/21 16:44 22:05 05:55 Sodium 136 Potassium 3.8 Chloride 102 Carbon Dioxide 23 Anion Gap 11 BUN 28 H Creatinine 3.31 H Est Cr Clr Drug Dosing 19.4 Est GFR ( Amer) 15.6 Est GFR (Non-Af Amer) 13.4 BUN/Creatinine Ratio 8.5 L Glucose 90 POC Glucose 98 109 H Calcium 9.2 10/24/21 10/24/21 07:25 11:38 Sodium Potassium Chloride Carbon Dioxide Anion Gap BUN Creatinine Est Cr Clr Drug Dosing Est GFR ( Amer) Est GFR (Non-Af Amer) BUN/Creatinine Ratio Glucose POC Glucose 107 H 112 H Calcium PG Care Time/CCT Total # of Minutes Spent Total Time Spent with Patient: Total time spent is greater than 50% in coordination of care (as documented) at patient's floor/unit and/or counseling patient: Coding Level of Care Code 99336 Subseq Hosp Care Lvl 3 Diagnoses Acute kidney injury N17.9 UTI (urinary tract infection) N39.0 Right renal atrophy N26.1 Ureteral stone with hydronephrosis N13.2 Renal mass N28.89 Acute dehydration E86.0
== END 2021-10-24 14:28 | disposition home or self-care (01) | DRG 660 ==
LOC: ED 14:39 → 2N 18:34 → SUATTDRO 18:34 → 2N 20:01